=== PATIENT | male | born 1960 | race African-American/Black ===

== ENCOUNTER 2017-04-03 08:10 | Observation (INO) | payer OTHER ==
[~2017-04-03] VITALS: Ht 170.2 cm; Wt 132.0 kg
[2017-04-03] VITALS (7 sets, daily range): BP systolic 136–199; BP diastolic 69–97; PULSE 51–89; RESP 14–23; TEMP 97.9–99; O2SAT 97–99
[~2017-04-03 08:10] MED LIST: ALBU1AER INH; CEPH500C3 PO; CLON.1 PO; DIOV320T PO; GLUCTAB PO; LORTA10 PO; NEUR100C PO; PROC90TA PO; SIMV20TA PO; VENTAER INH; WARF6 PO
[2017-04-03] MEDS ORDERED: SODIUM CHLORIDE 0.9% FLUSH 10 ML FLUSH IVF PRN (08:30)
--- NOTE | 2017-04-03 08:31 | PD ---
HPI Chief Complaint: Chest Pain Time Seen by Provider: 08:17 Travel History International Travel<30 days: No Contact w/Intl Traveler<30days: No Traveled to known affect area: No History of Present Illness HPI 56-year-old male presents with central chest pressure that started at 5 AM this morning with shortness of breath. He states he's also been having swelling in his legs for a couple weeks that he wears compression stockings for. He states that he doesn't follow with a heart specialists. He states he did not take an aspirin as he is on Coumadin for A. fib. He states he had this a couple years ago and was told that it was related to his blood pressure. He states that he had a stress test done and it was okay. He denies any other concurrent complaints. Quality is pressure. Severity is mild. He denies specific modifying factors. Duration is since 5 AM this morning. PFSH Past Medical History Hx Anticoagulant Therapy: Yes Arthritis: Yes (BILATERAL LOWER EXTREMETIES AND BACK) Asthma: No Atrial Fibrillation: Yes Autoimmune Disease: No Blood Disorders: No Anxiety: No Depression: No Heart Rhythm Problems: Yes (A FIB) Cancer: No Cardiac Catheterization: No Cardiovascular Problems: Yes High Cholesterol: Yes Chemotherapy: No Chest Pain: Yes Congestive Heart Failure: No COPD: Yes Cerebrovascular Accident: No Diabetes: Yes Diminished Hearing: No Endocrine: No Gastrointestinal Disorders: Yes GERD: Yes Glaucoma: No Genitourinary: Yes Headaches: Yes Hepatitis: No Hiatal Hernia: No Hypertension: Yes Immune Disorder: No Kidney Stones: No Musculoskeletal: Yes Neurologic: Yes Psychiatric: No Reproductive: No Respiratory: Yes Immunizations Current: Yes Migraines: Yes Myocardial Infarction: No Radiation Therapy: No Renal Failure: No Seizures: No Sickle Cell Disease: No Sleep Apnea: Yes Thyroid Disease: No Ulcer: No PNEUMOCCOCAL Vaccine (Year): 2 Past Surgical History Abdominal Surgery: No AICD: No Appendectomy: No Arteriovenous Shunt: No Cardiac Surgery: No Cholecystectomy: No Coronary Artery Bypass Graft: No Ear Surgery: No Endocrine Surgery: No Eye Surgery: No Genitourinary Surgery: No Gynecologic Surgery: No Insulin Pump: No Joint Replacement: No Oral Surgery: Yes Pacemaker: No Thoracic Surgery: No Other Surgery: Yes Social History Alcohol Use: Yes (ONCE/TWICE PER WEEK PER PT) Tobacco Use: No Substance Use: No Allergies-Medications (Allergen,Severity, Reaction): Coded Allergies: No Known Allergies (Verified Allergy, Unknown, 04/03/17) Reported Meds & Prescriptions Reported Meds & Active Scripts Active Ventolin Hfa (Albuterol Sulfate) 18 Gm Aero 2 Puff INH Q4H PRN Keflex (Cephalexin Monohydrate) 500 Mg Cap 500 Mg PO Q6HR 7 Days Proair Hfa (Albuterol Sulfate) 8.5 Gm Aero 2 Puff INH Q4HPRN * SHAKE WELL BEFORE USE * Reported Simvastatin 20 Mg Tab 20 Mg PO DAILY Hydrocodone/Acetaminophen 10 mg/325 mg 10 Mg/325 Mg Tab 1 Tab PO Q6HPRN Coumadin (Warfarin Sodium) 6 Mg Tab 8 Mg PO DAILY Catapres 0.1 mg (Clonidine HCl) 0.1 Mg Tab 0.2 Mg PO TID WITH MEALS Glucophage (Metformin HCl) 500 Mg Tab 500 Mg PO DAILY Diovan 320 mg (Valsartan) 320 Mg Tab 320 Mg PO DAILY Procardia Xl (Nifedipine) 90 Mg Tabcr 90 Mg PO DAILY Neurontin (Gabapentin) 100 Mg Cap 600 Mg PO BID Review of Systems Except as stated in HPI: all other systems reviewed are Neg Physical Exam Narrative GENERAL: Well-nourished, well-developed patient. Well-appearing SKIN: Warm and dry. HEAD: Normocephalic and atraumatic. EYES: No injection or drainage. ENT: No nasal drainage noted. NECK: Supple, trachea midline. CARDIOVASCULAR: irregular rate and rhythm RESPIRATORY: Breath sounds equal bilaterally. No accessory muscle use. GASTROINTESTINAL: Abdomen soft, non-tender, nondistended. EXTREMITIES: Mild edema noted to bilateral legs NEUROLOGICAL: Awake and alert. Motor and sensory grossly within normal limits. Normal speech. RECTAL EXAM: Performed with operating room rn and after permission. No large external hemorrhoid or fissure, stool is brown, non-bloody. Data Data Last Documented VS Vital Signs Date Time Temp Pulse Resp B/P (MAP) Pulse Ox O2 Delivery O2 Flow Rate FiO2 04/03/17 09:57 16 04/03/17 09:44 64 159/76 (103) 97 Room Air 04/03/17 08:13 98.7 Orders Orders Electrocardiogram (04/03/17 08:17) B-Type Natriuretic Peptide (04/03/17 08:17) Ckmb (Isoenzyme) Profile (04/03/17 08:17) Complete Blood Count With Diff (04/03/17 08:17) Comprehensive Metabolic Panel (04/03/17 08:17) Magnesium (Mg) (04/03/17 08:17) Prothrombin Time / Inr (Pt) (04/03/17 08:17) Act Partial Throm Time (Ptt) (04/03/17 08:17) Troponin I (04/03/17 08:17) Chest, Single Ap (04/03/17 08:17) Ecg Monitoring (04/03/17 08:17) Bilateral Bp Monitoring (04/03/17 08:17) Iv Access Insert/Monitor (04/03/17 08:17) Oximetry (04/03/17 08:17) Sodium Chloride 0.9% Flush (Ns Flush) (04/03/17 08:30) Nitroglycerin Sl (Nitrostat Sl) (04/03/17 08:30) CKMB (04/03/17 08:25) CKMB% (04/03/17 08:25) Drug Screen, Random Urine (04/03/17 09:26) Aspirin (Aspirin) (04/03/17 10:00) Pantoprazole Inj (Protonix Inj) (04/03/17 10:00) Albuterol-Ipratropium Neb (Duoneb Neb) (04/03/17 10:00) Admit Order (Ed Use Only) (04/03/17 10:38) Place In Observation (04/03/17 ) Vital Signs (Adult) Q4H (04/03/17 10:37) Activity Oob With Assistance (04/03/17 10:37) Neuro Intensivist Physician / Telemetry .CONTINUOUS (04/03/17 10:37) Diet Heart Healthy (04/03/17 Lunch) Sodium Chloride 0.9% Flush (Ns Flush) (04/03/17 10:45) Sodium Chloride 0.9% Flush (Ns Flush) (04/03/17 21:00) Acetaminophen (Tylenol) (04/03/17 10:45) Ondansetron Inj (Zofran Inj) (04/03/17 10:45) Temazepam (Restoril) (04/03/17 10:45) Basic Metabolic Panel (Bmp) (04/04/17 06:00) Complete Blood Count With Diff (04/04/17 06:00) Troponin I (04/03/17 12:30) Troponin I (04/03/17 18:30) Electrocardiogram (04/03/17 12:30) Electrocardiogram (04/03/17 18:30) Naloxone Inj (Narcan Inj) (04/03/17 10:45) Magnesium Hydroxide Liq (Milk Of Magnesi (04/03/17 10:45) Sennosides (Senokot) (04/03/17 10:45) Bisacodyl Supp (Dulcolax Supp) (04/03/17 10:45) Lactulose Liq (Lactulose Liq) (04/03/17 10:45) Labs Laboratory Tests Test 04/03/17 08:25 04/03/17 09:39 White Blood Count 8.3 TH/MM3 Red Blood Count 4.31 MIL/MM3 Hemoglobin 9.0 GM/DL Hematocrit 30.9 % Mean Corpuscular Volume 71.6 FL Mean Corpuscular Hemoglobin 20.8 PG Mean Corpuscular Hemoglobin Concent 29.0 % Red Cell Distribution Width 21.6 % Platelet Count 373 TH/MM3 Mean Platelet Volume 7.4 FL CBC Comment AUTO DIFF Differential Total Cells Counted 100 Neutrophils % (Manual) 86 % Band Neutrophils % 1 % Lymphocytes % 10 % Monocytes % 1 % Basophils % 1 % Neutrophils # (Manual) 7.2 TH/MM3 Differential Comment FINAL DIFF MANUAL Plasma Cells 1 % Platelet Estimate NORMAL Platelet Morphology Comment NORMAL Ovalocytes 1+ Prothrombin Time 11.9 SEC Prothromb Time International Ratio 1.2 RATIO Activated Partial Thromboplast Time 28.7 SEC Blood Urea Nitrogen 20 MG/DL Creatinine 1.04 MG/DL Random Glucose 65 MG/DL Total Protein 8.0 GM/DL Albumin 3.9 GM/DL Calcium Level 8.2 MG/DL Magnesium Level 2.3 MG/DL Alkaline Phosphatase 71 U/L Aspartate Amino Transf (AST/SGOT) 26 U/L Alanine Aminotransferase (ALT/SGPT) 18 U/L Total Bilirubin 0.6 MG/DL Sodium Level 137 MEQ/L Potassium Level 4.2 MEQ/L Chloride Level 107 MEQ/L Carbon Dioxide Level 21.2 MEQ/L Anion Gap 9 MEQ/L Estimat Glomerular Filtration Rate 90 ML/MIN Total Creatine Kinase 366 U/L Creatine Kinase MB 3.1 NG/ML Creatine Kinase MB % 0.8 % Troponin I LESS THAN 0.02 NG/ML B-Type Natriuretic Peptide 129 PG/ML Urine Opiates Screen NEG Urine Barbiturates Screen NEG Urine Amphetamines Screen NEG Urine Benzodiazepines Screen NEG Urine Cocaine Screen POS Urine Cannabinoids Screen NEG MDM Medical Decision Making Medical Screen Exam Complete: Yes Emergency Medical Condition: Yes Medical Record Reviewed: Yes (past history confirmed) Interpretation(s) CBC & BMP Diagram 04/03/17 08:25 Total Protein 8.0, Albumin 3.9, Calcium Level 8.2 L, Magnesium Level 2.3, Alkaline Phosphatase 71, Aspartate Amino Transf (AST/SGOT) 26, Alanine Aminotransferase (ALT/SGPT) 18, Total Bilirubin 0.6 Last 24 hours Impressions Chest X-Ray 04/03/17 0817 Signed Impressions: Service Date/Time: Monday, April 03, 2017 08:24 - CONCLUSION: 1. Stable appearance with no acute cardiopulmonary disease. 2. Mild cardiomegaly with no evidence of pulmonary edema. 3. Known hiatal hernia again visualized. Hussein Olivares MD Differential Diagnosis MD, CHF, pneumothorax, asthma, gastritis Narrative Course Will check blood work, chest x-ray and dose with nitroglycerin and reevaluate Patient has anemia of 9. Patient does not know if he's had history of this. His last blood work was 3 months ago. That site guaiac is brown and only faintly positive. Patient states he has not been on his Coumadin for the past [address] on aspirin given chest pain and INR that is subtherapeutic given he is only with a small amount of positive on guaiac and admit to the hospital for further care HemaPrompt Point of Care Fecal Specimen Occult Blood: Positive Physician Communication Physician Communication dr busby agrees to admit Diagnosis Primary Impression: Chest pain Qualified Codes: R07.9 - Chest pain, unspecified Additional Impressions: Anemia Qualified Codes: D64.9 - Anemia, unspecified Cocaine abuse Admitting Information Admitting Physician Requests: Becca Hernández MD Apr 03, 2017 08:31
[2017-04-03 08:44] LABS: HEMATOCRIT 30.9 % (39.0-51.0); MEAN CELL VOLUME 71.6 FL (80.0-100.0); MEAN CORPUSCULAR HEMOGLOBIN 20.8 PG (27.0-34.0); MEAN PLATELET VOLUME 7.4 FL (7.0-11.0); PLATELET COUNT 373 TH/MM3 (150-450); RED BLOOD COUNT 4.31 MIL/MM3 (4.50-5.90); RED CELL DISTRIBUTION WIDTH 21.6 % (11.6-17.2); WHITE BLOOD COUNT 8.3 TH/MM3 (4.0-11.0)
[2017-04-03 08:45] LABS: INTERNATIONAL NORMALIZED RATIO 1.2 RATIO; PROTHROMBIN TIME - PATIENT 11.9 SEC (9.8-11.6)
[2017-04-03 08:54] LABS: ALBUMIN 3.9 GM/DL (3.4-5.0); ALT (GPT) 18 U/L (12-78); AST (GOT) 26 U/L (15-37); BICARBONATE 21.2 MEQ/L (21.0-32.0); CALCIUM 8.2 MG/DL (8.5-10.1); CHLORIDE 107 MEQ/L (98-107); CREATININE 1.04 MG/DL (0.60-1.30); GLOMERULAR FILTRATION RATE 90 ML/MIN (>89); GLUCOSE,RANDOM 65 MG/DL (74-106); MAGNESIUM 2.3 MG/DL (1.5-2.5); SODIUM (NA) 137 MEQ/L (136-145)
[2017-04-03 09:01] LABS: ALKALINE PHOSPHATASE 71 U/L (45-117); BLOOD UREA NITROGEN 20 MG/DL (7-18); TOTAL BILIRUBIN ADULT 0.6 MG/DL (0.2-1.0); TROPONIN I LESS THAN 0.02 NG/ML (0.02-0.05)
[2017-04-03 09:17] LABS: BANDS 1 % (0-6); BASOPHILS 1 % (0-2); LYMPHOCYTES 10 % (9-44); MONOCYTES 1 % (0-8); NEUTROPHIL # MANUAL DIFF 7.2 TH/MM3 (1.8-7.7); OVALOCYTES 1+ (NORMAL); PLASMA CELLS 1 % (0-0); POLYS (SEG NEUTROPHILS) 86 % (16-70)
[2017-04-03] MEDS: NITROGLYCERIN 0.4 MG SL 25 TABS/BTL SL SCH ×3 (09:18→09:47)
--- NOTE | 2017-04-03 09:23 | RADRPT ---
EXAM DATE/TIME: 04/03/2017 08:24 [facility] COMPARISON: CHEST SINGLE AP, February 27, 2013, 9:46. INDICATIONS : Chest pains and tightness radiating down left arm. MEDICAL HISTORY : Known hiatal hernia seen on CT. Diabetes mellitus type II. A-fib SURGICAL HISTORY : None. ENCOUNTER: Initial ACUITY: 1 day PAIN SCORE: 8/10 LOCATION: Left chest FINDINGS: A single view of the chest demonstrates the lungs to be symmetrically aerated without evidence of mas s, infiltrate or effusion. The cardiomediastinal heart size remains mildly prominent with no perihil ar edema. The known retrocardiac hiatal hernia is again visualized. Osseous structures are intact. CONCLUSION: 1. Stable appearance with no acute cardiopulmonary disease. 2. Mild cardiomegaly with no evidence of pulmonary edema. 3. Known hiatal hernia again visualized. Hussein Olivares MD on April 03, 2017 at 9:19 Board Certified Radiologist. This report was verified electronically.
[2017-04-03] MEDS ORDERED: PANTOPRAZOLE SODIUM 40 MG VIAL IV PUSH ONE (10:00)
[2017-04-03] MEDS ORDERED: ASPIRIN 325 MG TAB PO ONE (10:00)
[2017-04-03] MEDS ORDERED: RESP: ALBUTEROL 2.5 MG/IPRATROPIUM 0.5 MG NEB (SCH) NEB ONE (10:00)
--- NOTE | 2017-04-03 10:41 | HHI.HP ---
[facility] Service [facility] Primary Care Physician Viktoriya Mcgill MD Admission Diagnosis chest pain Diagnoses: Chief Complaint: Chest pain. Travel History International Travel<30 Days: No Contact w/Intl Traveler <30 Da: No Traveled to Known Affected Are: No History of Present Illness Mr. Sexton is a pleasant 56-year-old Jess male with a history of atrial fibrillation who presents to the emergency department due to chest pain, shortness of breath. He woke up this morning around 5 AM with shortness of breath and sharp pain on his left chest with radiation to his left arm. He also felt chest tightness. Chest tightness lasted until he came to the emergency room around 8 AM. He also reports nausea vomiting and diaphoresis. He reports some chills and mild headache. No abdominal pain. No changes in bowel or bladder habits. He denies any dark stool. ED work up indicated UDS positive for cocaine, Hgb 9.0 with MCV 71. Review of Systems Except as stated in HPI: all other systems reviewed are Neg Past Family Social History Past Medical History Bronchial asthma, atrial fibrillation, hypertension Past Surgical History No past surgical history Reported Medications Ventolin Hfa (Albuterol Sulfate) 18 Gm Aero 2 Puff INH Q4H PRN Keflex (Cephalexin Monohydrate) 500 Mg Cap 500 Mg PO Q6HR 7 Days Proair Hfa (Albuterol Sulfate) 8.5 Gm Aero 2 Puff INH Q4HPRN * SHAKE WELL BEFORE USE * Reported Simvastatin 20 Mg Tab 20 Mg PO DAILY Hydrocodone/Acetaminophen 10 mg/325 mg 10 Mg/325 Mg Tab 1 Tab PO Q6HPRN Coumadin (Warfarin Sodium) 6 Mg Tab 8 Mg PO DAILY Catapres 0.1 mg (Clonidine HCl) 0.1 Mg Tab 0.2 Mg PO TID WITH MEALS Glucophage (Metformin HCl) 500 Mg Tab 500 Mg PO DAILY Diovan 320 mg (Valsartan) 320 Mg Tab 320 Mg PO DAILY Procardia Xl (Nifedipine) 90 Mg Tabcr 90 Mg PO DAILY Neurontin (Gabapentin) 100 Mg Cap 600 Mg PO BID Allergies: Coded Allergies: No Known Allergies (Verified Allergy, Unknown, 04/03/17) Family History No family history of heart disease, Parkinson's or Alzheimer's Social History Patient denies using tobacco, alcohol, illicit drugs. However he used cocaine 2 days ago while with friends. He denies using cocaine on a regular basis. Physical Exam Vital Signs Vital Signs Date Time Temp Pulse Resp B/P (MAP) Pulse Ox O2 Delivery O2 Flow Rate FiO2 04/03/17 09:57 16 04/03/17 09:44 64 14 159/76 (103) 97 Room Air 04/03/17 08:26 98 Room Air 04/03/17 08:13 98.7 89 20 199/97 (131) 99 Physical Exam GENERAL: This is a well-nourished, well-developed patient, in no apparent distress. SKIN: No rashes, ecchymoses or lesions. Warm and dry. HEAD: Atraumatic. Normocephalic. No temporal or scalp tenderness. EYES: Pupils equal round and reactive. No injection or drainage. ENT: Nose without bleeding, purulent drainage or septal hematoma. Airway patent. NECK: Trachea midline. No lymphadenopathy. Supple, nontender, no meningeal signs. CARDIOVASCULAR: Regular rate and rhythm without murmurs, gallops, or rubs. No JVD. RESPIRATORY: Clear to auscultation. Breath sounds equal bilaterally. No wheezes , rales, or rhonchi. GASTROINTESTINAL: Abdomen soft, non-tender, nondistended. No guarding. MUSCULOSKELETAL: Extremities without clubbing, cyanosis, or edema. NEUROLOGICAL: Awake and alert. Cranial nerves II through XII intact. No focal neurological deficits. Normal speech. Laboratory Laboratory Tests Test 04/03/17 08:25 04/03/17 09:39 White Blood Count 8.3 Red Blood Count 4.31 Hemoglobin 9.0 Hematocrit 30.9 Mean Corpuscular Volume 71.6 Mean Corpuscular Hemoglobin 20.8 Mean Corpuscular Hemoglobin Concent 29.0 Red Cell Distribution Width 21.6 Platelet Count 373 Mean Platelet Volume 7.4 CBC Comment AUTO DIFF Differential Total Cells Counted 100 Neutrophils % (Manual) 86 Band Neutrophils % 1 Lymphocytes % 10 Monocytes % 1 Basophils % 1 Neutrophils # (Manual) 7.2 Differential Comment FINAL DIFF MANUAL Plasma Cells 1 Platelet Estimate NORMAL Platelet Morphology Comment NORMAL Ovalocytes 1+ Prothrombin Time 11.9 Prothromb Time International Ratio 1.2 Activated Partial Thromboplast Time 28.7 Blood Urea Nitrogen 20 Creatinine 1.04 Random Glucose 65 Total Protein 8.0 Albumin 3.9 Calcium Level 8.2 Magnesium Level 2.3 Alkaline Phosphatase 71 Aspartate Amino Transf (AST/SGOT) 26 Alanine Aminotransferase (ALT/SGPT) 18 Total Bilirubin 0.6 Sodium Level 137 Potassium Level 4.2 Chloride Level 107 Carbon Dioxide Level 21.2 Anion Gap 9 Estimat Glomerular Filtration Rate 90 Total Creatine Kinase 366 Creatine Kinase MB 3.1 Creatine Kinase MB % 0.8 Troponin I LESS THAN 0.02 B-Type Natriuretic Peptide 129 Urine Opiates Screen NEG Urine Barbiturates Screen NEG Urine Amphetamines Screen NEG Urine Benzodiazepines Screen NEG Urine Cocaine Screen POS Urine Cannabinoids Screen NEG Result Diagram: 04/03/1782404/03/17824 Imaging Last Impressions Chest X-Ray 04/03/17816 Signed Impressions: Service Date/Time: Monday, April 03, 2017 08:24 - CONCLUSION: 1. Stable appearance with no acute cardiopulmonary disease. 2. Mild cardiomegaly with no evidence of pulmonary edema. 3. Known hiatal hernia again visualized. Hussein Olivares MD [place] VTE Risk Assessment Caprini VTE Risk Assessment: Mod/High Risk (score >= 2) Caprini Risk Assessment Model Point Value = 1 Point Value = 2 Point Value = 3 Point Value = 5 Age 41-60 Minor surgery BMI > 25 kg/m2 Swollen legs Varicose veins or History of unexplained or recurrent spontaneous Oral contraceptives or hormone replacement Sepsis (< 1 month) Serious lung disease, including pneumonia (< 1 month) Abnormal pulmonary function Acute myocardial infarction Congestive heart failure (< 1 month) History of inflammatory bowel disease Medical patient at bed rest Age 61-74 Arthroscopic surgery Major open surgery (> 45 min) Laparoscopic surgery (> 45 min) Malignancy Confined to bed (> 72 hours) Immobilizing plaster cast Central venous access Age >= 75 History of VTE Family history of VTE Factor V Leiden Prothrombin [id number] Lupus anticoagulant Anticardiolipin antibodies Elevated serum homocysteine Heparin-induced thrombocytopenia Other congenital or acquired thrombophilia Stroke (< 1 month) Elective arthroplasty Hip, pelvis, or leg fracture Acute spinal cord injury (< 1 month) Prophylaxis Regimen Total Risk Factor Score Risk Level Prophylaxis Regimen 0-1 Low Early ambulation 2 Moderate Order ONE of the following: *Sequential Compression Device (SCD) *Heparin 5000 units SQ BID 3-4 Higher Order ONE of the following medications: *Heparin 5000 units SQ TID *Enoxaparin/Lovenox 40 mg SQ daily (WT < 150 kg, CrCl > 30 mL/min) *Enoxaparin/Lovenox 30 mg SQ daily (WT < 150 kg, CrCl > 10-29 mL/min) *Enoxaparin/Lovenox 30 mg SQ BID (WT < 150 kg, CrCl > 30 mL/min) AND/OR *Sequential Compression Device (SCD) 5 or more Highest Order ONE of the following medications: *Heparin 5000 units SQ TID (Preferred with Epidurals) *Enoxaparin/Lovenox 40 mg SQ daily (WT < 150 kg, CrCl > 30 mL/min) *Enoxaparin/Lovenox 30 mg SQ daily (WT < 150 kg, CrCl > 10-29 mL/min) *Enoxaparin/Lovenox 30 mg SQ BID (WT < 150 kg, CrCl > 30 mL/min) AND *Sequential Compression Device (SCD) Assessment and Plan Problem List: (1) Chest pain ICD Code: R07.9 - Chest pain, unspecified Status: Acute (2) Cocaine abuse ICD Code: F14.10 - Cocaine abuse, uncomplicated Status: Acute (3) Atrial fibrillation ICD Code: I48.91 - Unspecified atrial fibrillation (4) Hypertension ICD Code: I10 - Essential (primary) hypertension Assessment and Plan Mr. Sexton is a pleasant 56-year-old Jess male with a history of hypertension, atrial fibrillation who presents to the emergency department due to chest pain that started around 5 AM on 04/03/2017. ED workup indicated mildly anemia with MCV 71 and hemoglobin 9.0. Patient reported using cocaine 2 days ago and his UDS was positive for cocaine. - Probable cocaine-induced chest pain - Initial troponin negative. We'll check troponins and EKG 2 more times. - Patient is a strongly advised to abstain from cocaine as it can cause vasoconstriction. - Patient received aspirin 325 mg in the ED. - No beta massiel due to cocaine abuse - Atrial fibrillation - [id number] score is probably 1 (Hypertension). - Last HbA1C was 6.2, 6.3 10 years ago and he has lost a lot of weight since then. We will check HbA1C. - If DM is diagnosed, his [id number] score would be 2 in which case he will need anti-coagulation - If he does not have DM, he may need just Aspirin 81mg Qday. Will consider Protonix daily as well. - Hypertension - Will continue Nifedipine SR. - Anemia - likely chronic and possibly GI blood loss related. - Will check Iron panel, Ferritin. - Will consult GI for possible Colonoscopy, EGD. Full code. SCDs. Problem Qualifiers (1) Chest pain: Qualified Codes: R07.9 - Chest pain, unspecified Rukhsana Martin DO Apr 03, 2017 10:41
[2017-04-03] MEDS ORDERED: ONDANSETRON HCL 4 MG/2 ML VIAL IVP PRN (10:45)
[2017-04-03] MEDS ORDERED: SENNOSIDES 8.6 MG TAB PO PRN (10:45)
[2017-04-03] MEDS ORDERED: LACTULOSE SYRUP 20 GM/30 ML CUP PO PRN (10:45)
[2017-04-03] MEDS ORDERED: BISACODYL 10 MG SUPP RECTAL PRN (10:45)
[2017-04-03] MEDS ORDERED: MAGNESIUM HYDROXIDE SUSP 30 ML CUP PO PRN (10:45)
[2017-04-03] MEDS ORDERED: NALOXONE HCL 0.4 MG/ML AMP IV PUSH PRN (10:45)
[2017-04-03] MEDS ORDERED: SODIUM CHLORIDE 0.9% FLUSH 10 ML FLUSH IV FLUSH PRN (10:45)
[2017-04-03] MEDS ORDERED: ACETAMINOPHEN 325 MG TAB PO PRN (10:45)
[2017-04-03] MEDS ORDERED: TEMAZEPAM 15 MG CAP PO PRN (10:45)
[2017-04-03] MEDS ORDERED: NIFEdipine 60 MG SUSTAINED RELEASE TAB PO ONE (12:45)
[2017-04-03] MEDS ORDERED: PANTOPRAZOLE SOD 40 MG DELAYED RELEASE TAB PO ONE (13:00)
[2017-04-03 14:01] LABS: % SATURATION IRON PROFILE 6.3 % (20-50); IRON (FE) 32 MCG/DL (65-175); TOTAL IRON BINDING CAPACITY 505 MCG/DL (250-450)
[2017-04-03 14:04] LABS: FERRITIN 8 NG/ML (26-388)
--- NOTE | 2017-04-03 15:14 | EKG ---
Date Performed: 04/03/2017 Time Performed: 08:33:51 PTAGE: 56 years EKG: ATRIAL FIBRILLATION WITH SLOW VENTRICULAR RESPONSE ABNORMAL RHYTHM ECG PREVIOUS TRACING : 02/27/2013 12.57 Compared to prior tracing no significant change DOCTOR: Long Nieto Interpretating Date/Time 04/03/2017 15:12:56
--- NOTE | 2017-04-03 15:55 | PD.CONS ---
HPI History of Present Illness This is a 56 year old M who presented to the emergency department today with complaints of shortness of breath and chest pain that began this morning. He states it woke him up from his sleep. Reports some current resolution in symptoms at this time. ER documentation revealed positive cocaine in urine, pt admitted to use two days ago, and attending notes chest pain likely secondary to this. Two sets of Troponin so far negative. GI was consulted due to pts anemia. H/H currently 9.0/30.9. Pt denies history of anemia, does report seeing a PCP outpatient and having routine labs done. Pt reports history of gastric ulcer approx 2 years ago, says it was found during an admission at [facility]. Unable to find these records in patient chart. Reports having colonoscopy done at the same time which showed poor prep and he was told to have follow up colonoscopy outpatient, however, he never had this done. Pt has atrial fibrillation and has been on long-term anti-coagulation therapy with Warfarin, he states for ten years. Denies any recent adjustment in medication. Only GI complaint at this time is nausea and vomiting that began this morning , denies BRB in vomit or coffee ground emesis. BM today, denies BRBPR and black , tarry stools. Denies acid reflux, unintentional weight loss, abdominal pain. Denies NSAID use. Does admit to ETOH use, however, he is very vague about how much or how often he drinks. At first said it was mostly on holidays but later admitted to drinking almost every other weekend at family gatherings. Denies smoking. Admits to cocaine use, as noted above, but states does not use cocaine on a regular basis. Family history is significant for colon cancer, grandmother. (Marie Hanks) ON LICENSE OF [facility] Past Medical History Bronchial asthma Atrial fibrillation Hypertension Gastric ulcer Past Surgical History Denies (Marie Hanks) Coded Allergies: No Known Allergies (Verified Allergy, Unknown, 04/03/17) Family History Grandmother- colon cancer Social History ETOH- vague about how much or how often Denies smoking Admits to cocaine use 2 days ago (Marie Hanks) Review of Systems Gastrointestinal: COMPLAINS OF: Nausea, Vomiting, DENIES: Abdominal pain, Black stools, Bloody stools, Constipation, Diarrhea, Difficulty Swallowing, Odynophagia, Swelling of Abdomen, Heartburn, Hematemesis (Marie Hanks) GI Exam Vitals I&O Vital Signs Date Time Temp Pulse Resp B/P (MAP) Pulse Ox O2 Delivery O2 Flow Rate FiO2 04/03/17 12:15 68 23 98 Room Air 04/03/17 09:57 16 04/03/17 09:44 64 14 159/76 (103) 97 Room Air 04/03/17 08:26 98 Room Air 04/03/17 08:13 98.7 89 20 199/97 (131) 99 Imaging Last Impressions Chest X-Ray 04/03/17 0817 Signed Impressions: Service Date/Time: Monday, April 03, 2017 08:24 - CONCLUSION: 1. Stable appearance with no acute cardiopulmonary disease. 2. Mild cardiomegaly with no evidence of pulmonary edema. 3. Known hiatal hernia again visualized. Hussein Olivares MD Laboratory Test 04/03/17 08:25 04/03/17 09:39 04/03/17 12:51 04/03/17 12:52 White Blood Count 8.3 TH/MM3 Red Blood Count 4.31 MIL/MM3 Hemoglobin 9.0 GM/DL Hematocrit 30.9 % Mean Corpuscular Volume 71.6 FL Mean Corpuscular Hemoglobin 20.8 PG Mean Corpuscular Hemoglobin Concent 29.0 % Red Cell Distribution Width 21.6 % Platelet Count 373 TH/MM3 Mean Platelet Volume 7.4 FL CBC Comment AUTO DIFF Differential Total Cells Counted 100 Neutrophils % (Manual) 86 % Band Neutrophils % 1 % Lymphocytes % 10 % Monocytes % 1 % Basophils % 1 % Neutrophils # (Manual) 7.2 TH/MM3 Differential Comment FINAL DIFF MANUAL Plasma Cells 1 % Platelet Estimate NORMAL Platelet Morphology Comment NORMAL Ovalocytes 1+ Prothrombin Time 11.9 SEC Prothromb Time International Ratio 1.2 RATIO Activated Partial Thromboplast Time 28.7 SEC Blood Urea Nitrogen 20 MG/DL Creatinine 1.04 MG/DL Random Glucose 65 MG/DL Total Protein 8.0 GM/DL Albumin 3.9 GM/DL Calcium Level 8.2 MG/DL Magnesium Level 2.3 MG/DL Alkaline Phosphatase 71 U/L Aspartate Amino Transf (AST/SGOT) 26 U/L Alanine Aminotransferase (ALT/SGPT) 18 U/L Total Bilirubin 0.6 MG/DL Sodium Level 137 MEQ/L Potassium Level 4.2 MEQ/L Chloride Level 107 MEQ/L Carbon Dioxide Level 21.2 MEQ/L Anion Gap 9 MEQ/L Estimat Glomerular Filtration Rate 90 ML/MIN Total Creatine Kinase 366 U/L Creatine Kinase MB 3.1 NG/ML Creatine Kinase MB % 0.8 % Troponin I LESS THAN 0.02 NG/ML LESS THAN 0.02 NG/ML B-Type Natriuretic Peptide 129 PG/ML Urine Opiates Screen NEG Urine Barbiturates Screen NEG Urine Amphetamines Screen NEG Urine Benzodiazepines Screen NEG Urine Cocaine Screen POS Urine Cannabinoids Screen NEG Iron Level 32 MCG/DL Total Iron Binding Capacity 505 MCG/DL Percent Iron Saturation 6.3 % Ferritin 8 NG/ML Physical Examination HEENT: Normocephalic; atraumatic CHEST: Even/unlabored. CARDIAC: RRR ABDOMEN: Round, soft, nontender; bowel sounds active EXTREMITIES: No clubbing, cyanosis, or edema. SKIN: Normal; no rash; no jaundice. 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 (Marie Hanks) Assessment and Plan Plan Assessment - Anemia- microcystic, hypochromic- H/H currently 9.0/30.9. Iron-32 TIBS-505 % Sat 6.3 Ferritin-8 Pt denies history of anemia. Reports EGD approx 2 years ago which revealed gastric ulcer. Pt thought this was done at [facility] but I am unable to find this in the record. On Warfarin at home for a-fib, no recent adjustment in dosage. Denies NSAIDS. Admits to ETOH but vague about how much or how often. No obvious GI bleeding. Only GI symptoms are nausea and vomiting that began this morning, denies BRB or coffee ground emesis. BM today, denies BRBPR and black, tarry stools. Continue Protonix. Hold anticoagulation. EGD tomorrow. - Chest pain/SOB- A-fib, rate controlled. Reports resolution of symptoms at this time. Per attending likely secondary to cocaine use two days ago. Plan: - EGD tomorrow - Obtain consents - NPO after MN - Continue Protonix - Monitor H/H - Transfuse as needed - Hold anticoagulation for procedure - Supportive care - Further recommendations to follow based on results of above Pt has been seen and examined by myself and Dr. Bratu and this note is written on her behalf (Marie Hanks) Physician Comments seen, examined agree with above we will check office and Tim records to see if any egd/colon report available history of NSAIDS use (Nelsy Norman MD) Marie Hanks Apr 03, 2017 15:55 Nelsy Norman MD Apr 03, 2017 20:56
[2017-04-03] MEDS: ACETAMINOPHEN/HYDROcodone 325 MG/10 MG TAB PO PRN (18:02)
[2017-04-03] MEDS: RESP: ALBUTEROL 2.5 MG/IPRATROPIUM 0.5 MG NEB (PRN) NEB (18:09)
[2017-04-03 21:44] LABS: TROPONIN I 0.02 NG/ML (0.02-0.05)
[2017-04-03 22:31] LABS: HEMOGLOBIN A1C 5.6 % (4.3-6.0)
[2017-04-04] VITALS (10 sets, daily range): BP systolic 129–176; BP diastolic 74–94; PULSE 51–78; RESP 17–18; TEMP 97.5–99.2; O2SAT 94–98
[2017-04-04] MEDS: ACETAMINOPHEN/HYDROcodone 325 MG/10 MG TAB PO PRN ×5 (00:19→22:57)
[2017-04-04] MEDS: SODIUM CHLORIDE 0.9% FLUSH 10 ML FLUSH IV FLUSH SCH ×3 (00:21→20:01)
[2017-04-04] MEDS: RESP: ALBUTEROL 2.5 MG/IPRATROPIUM 0.5 MG NEB (PRN) NEB ×4 (00:36→14:06)
[2017-04-04 07:06] LABS: AUTOMATED NEUTROPHIL # 3.7 TH/MM3 (1.8-7.7); BASOPHIL # 0.1 TH/MM3 (0-0.2); BASOPHIL % 1.2 % (0.0-2.0); EOSINOPHIL # 0.1 TH/MM3 (0-0.4); EOSINOPHIL % 1.8 % (0.0-4.0); HEMATOCRIT 28.3 % (39.0-51.0); HEMOGLOBIN 8.3 GM/DL (13.0-17.0); LYMPH % 13.3 % (9.0-44.0); LYMPHOCYTE # 0.7 TH/MM3 (1.0-4.8); MEAN CELL VOLUME 70.9 FL (80.0-100.0); MEAN CORPUSCULAR HEMOGLOBIN 20.8 PG (27.0-34.0); MEAN PLATELET VOLUME 7.9 FL (7.0-11.0); MONO % 11.3 % (0.0-8.0); MONOCYTE # 0.6 TH/MM3 (0-0.9); NEUT % 72.4 % (16.0-70.0); PLATELET COUNT 328 TH/MM3 (150-450); RED BLOOD COUNT 3.99 MIL/MM3 (4.50-5.90); RED CELL DISTRIBUTION WIDTH 21.5 % (11.6-17.2); WHITE BLOOD COUNT 5.1 TH/MM3 (4.0-11.0)
[2017-04-04 07:09] LABS: MEAN CORPUSCULAR HGB CONC 29.3 % (32.0-36.0)
[2017-04-04 07:27] LABS: BICARBONATE 23.4 MEQ/L (21.0-32.0); CALCIUM 8.1 MG/DL (8.5-10.1)
--- NOTE | 2017-04-04 08:49 | GIPROC ---
[facility] [address] [facility]. [facility], [address] EGD PROCEDURE REPORT EXAM DATE: 04/04/2017 PATIENT NAME: Keith Sxeton MR #: [id number] BIRTHDATE: 1960 ATTENDING: Nelsy Norman MD ORDER #: [id number] SAUSAGE MIXER: Zeny Hassan and Natasha Barros STATUS: inpatient INDICATIONS: The patient is a 56 yr old male here for an EGD due to anemia PROCEDURE PERFORMED: EGD w/ biopsy MEDICATIONS: None and Per Anesthesia. TOPICAL ANESTHETIC: CONSENT: The patient understands the risks and benefits of the procedure and understands that these risks include, but are not limited to: sedation, allergic reaction, infection, perforation and/or bleeding. Alternative means of evaluation and treatment include, among others: physical exam, x-rays, and/or surgical intervention. The patient elects to proceed with this endoscopic procedure. medical equipment was checked for proper function. Hand hygiene and appropriate measures for infection prevention was taken. After the risks, benefits and alternatives of the procedure were thoroughly explained, Informed consent was verified, confirmed and timeout was successfully executed by the treatment team. The patient was anesthetized with topical anesthesia and the Pentax [id number] endoscope was introduced through the mouth and advanced to the second portion of the duodenum. Retroflexed views revealed a hiatal hernia The gastroscope was then slowly withdrawn and removed. Gastritis antrum-biopsy duodenum normal -biopsy midesophagus prominent vein. ADVERSE EVENTS: There were no complications. IMPRESSIONS: 1. Gastritis antrum-biopsy duodenum normal -biopsy midesophagus prominent vein 2. Retroflexed views revealed a hiatal hernia RECOMMENDATIONS: 1. Await biopsy results. Biopsy results will not be ready for 7-10 days. If you don't hear from us in two weeks, call our office for biopsy results. 2. Anti-reflux regimen 3. Continue PPI 4. Avoid NSAIDS PATIENT CONDITION: stable DISPOSITION: Inpatient REPEAT EXAM: Return 3 years EGD colonoscopy in am Nelsy Norman MD eSigned: Nelsy Norman MD 04/04/2017 8:48 AM cc: PATIENT NAME: Keith Sexton MR#: [id number]
[2017-04-04] MEDS: PANTOPRAZOLE SOD 40 MG DELAYED RELEASE TAB PO SCH (09:31)
[2017-04-04] MEDS: NIFEdipine 60 MG SUSTAINED RELEASE TAB PO SCH (09:31)
[2017-04-04] MEDS ORDERED: PEG (High)/E-LYTE SOLN 4000 ML BTL PO ONE (10:00)
[2017-04-04] MEDS ORDERED: PROPOFOL 200 MG/20 ML AMP IV ONE (12:00)
[2017-04-04] MEDS ORDERED: PHENYLEPH/NS 1000 MCG/10 ML SYR IV ONE (12:00)
[2017-04-04] MEDS ORDERED: LIDOCAINE HCL 1% PF 5 ML SYRINGE OTHER ONE (12:00)
--- NOTE | 2017-04-04 12:05 | HHI.PR ---
Subjective Remarks in no acute distress. no GI bleed. no dizziness or sob. denies chest pain. Objective Vitals Vital Signs Date Time Temp Pulse Resp B/P (MAP) Pulse Ox O2 Delivery O2 Flow Rate FiO2 04/04/17 11:09 98.1 78 18 157/94 (115) 94 04/04/17 09:02 100 18 132/73 (92) 100 04/04/17 08:50 98.6 69 20 139/80 (99) 99 04/04/17 07:22 66 04/04/17 07:07 98.9 72 18 168/74 (105) 98 04/04/17 04:05 51 04/04/17 03:18 98.5 60 18 129/81 (97) 97 04/04/17 00:13 97.5 54 18 176/87 (116) 97 04/04/17 00:08 52 04/03/17 20:07 54 04/03/17 20:04 99.0 61 20 136/69 (91) 98 04/03/17 19:02 18 04/03/17 18:37 51 04/03/17 16:02 97.9 56 18 144/85 (104) 99 04/03/17 12:15 68 23 98 Room Air I/O 04/03/17 04/03/17 04/03/17 04/04/17 04/04/17 04/04/17 07:00 15:00 23:00 07:00 15:00 23:00 Intake Total 300 ml 200 ml Output Total 300 ml 1050 ml 1100 ml Balance 0 ml -1050 ml -900 ml Intake Oral 300 ml Other 200 ml Output Urine Total 300 ml 1050 ml 1100 ml # Voids 1 # Bowel Movements 1 Result Diagram: 04/04/17 0549 04/04/17 0549 Imaging Last Impressions Chest X-Ray 04/03/17 0817 Signed Impressions: Service Date/Time: Monday, April 03, 2017 08:24 - CONCLUSION: 1. Stable appearance with no acute cardiopulmonary disease. 2. Mild cardiomegaly with no evidence of pulmonary edema. 3. Known hiatal hernia again visualized. Hussein Olivares MD Objective Remarks GENERAL: This is a well-nourished, well-developed patient, in no apparent distress. CARDIOVASCULAR: Regular rate and regular rhythm without murmurs, gallops, or rubs. RESPIRATORY: Clear to auscultation. Breath sounds equal bilaterally. No wheezes , rales, or rhonchi. GASTROINTESTINAL: Abdomen soft, non-tender, nondistended. Normal, active bowel sounds MUSCULOSKELETAL: Extremities without clubbing, cyanosis, or edema. NEURO: Alert & Oriented x4 to person, place, time, situation. Moves all ext x4 Procedures EGD. Medications and IVs Inpatient Medications Acetaminophen (Tylenol) 650 mg Q4H PRN PO Headache, fever, pain 1-4 Last administered on 04/04/17at 03:59; Start 04/03/17 at 10:45 Acetaminophen/ Hydrocodone Bitart ([place] 10-325 Mg) 1 tab Q6H PRN PO PAIN SCALE 5 TO 10 Last administered on 04/04/17at 11:43; Start 04/03/17 at 18:00 Albuterol/ Ipratropium (Duoneb Neb) 1 ampule Q4HR NEB PRN NEB Dyspnea Last administered on 04/04/17at 09:40; Start 04/03/17 at 18:00 Aspirin (Aspirin) 325 mg ONCE ONCE PO Last administered on 04/03/17at 10:32; Start 04/03/17 at 10:00; Stop 04/03/17 at 10:01; Status DC Bisacodyl (Dulcolax Supp) 10 mg DAILY PRN RECTAL SEVERE CONSITIPATION; Start at 10:45 Lactulose (Lactulose Liq) 30 ml DAILY PRN PO SEVERE CONSITIPATION; Start at 10:45 Magnesium Hydroxide (Milk Of Magnesia Liq) 30 ml Q12H PRN PO Mild constipation ; Start 04/03/17 at 10:45 Naloxone HCl (Narcan Inj) 0.4 mg UNSCH PRN IV PUSH SEE LABEL COMMENTS; Start at 10:45 Nifedipine (Procardia Xl) 60 mg DAILY PO Last administered on 04/04/17at 09:31; Start 04/04/17 at 09:00 Nitroglycerin (Nitrostat Sl) 0.4 mg Q5M SL Last administered on 04/03/17at 09:47 ; Start 04/03/17 at 08:30; Stop 04/03/17 at 08:41; Status DC Ondansetron HCl (Zofran Inj) 4 mg Q6H PRN IVP NAUSEA OR VOMITING; Start at 10:45 Pantoprazole Sodium (Protonix Inj) 40 mg ONCE ONCE IV PUSH Last administered on 04/03/17at 10:32; Start 04/03/17 at 10:00; Stop 04/03/17 at 10:01; Status DC Pantoprazole Sodium (Protonix) 40 mg DAILY PO Last administered on 04/04/17at 09 :31; Start 04/04/17 at 09:00 Polyethylene Glycol/ Electrolytes (Colyte Liq) 4,000 ml ONCE ONCE PO Last administered on 04/04/17at 09:50; Start 04/04/17 at 10:00; Stop 04/04/17 at 10:01 ; Status DC Sennosides (Senokot) 17.2 mg Q12H PRN PO Moderate constipation; Start 04/03/17 at 10:45 Sodium Chloride (NS Flush) 2 ml BID IV FLUSH Last administered on 04/04/17at 09: 31; Start 04/03/17 at 21:00 Temazepam (Restoril) 15 mg HS PRN PO INSOMNIA; Start 04/03/17 at 10:45 A/P Problem List: (1) Chest pain ICD Code: R07.9 - Chest pain, unspecified Status: Acute (2) Cocaine abuse ICD Code: F14.10 - Cocaine abuse, uncomplicated Status: Acute (3) Atrial fibrillation ICD Code: I48.91 - Unspecified atrial fibrillation (4) Hypertension ICD Code: I10 - Essential (primary) hypertension Assessment and Plan A/P - Probable cocaine-induced chest pain - troponin negative. - Patient is a strongly advised to abstain from cocaine as it can cause vasoconstriction. - Patient received aspirin 325 mg in the ED. - No beta massiel due to cocaine abuse - Atrial fibrillation - resume coumadin when ok with GI - Hypertension - Will continue Nifedipine SR. - Anemia -iron deficiency- likely chronic and possibly GI blood loss related. - GI consult appreciated; s/p EGD with gastritis- colonoscopy pending. -start iron supplement. Problem Qualifiers (1) Chest pain: Qualified Codes: R07.9 - Chest pain, unspecified Damián Hanley MD Apr 04, 2017 12:05
[2017-04-04 15:17] LABS: HEMATOCRIT 30.2 % (39.0-51.0); HEMOGLOBIN 8.9 GM/DL (13.0-17.0)
[2017-04-04] MEDS: RESP: ALBUTEROL 2.5 MG/IPRATROPIUM 0.5 MG NEB (SCH) NEB ×2 (16:15→21:08)
[2017-04-04] MEDS: FERROUS SULFATE 325 MG (65 MG ELEMENTAL IRON) TAB PO SCH (16:49)
--- NOTE | 2017-04-04 21:55 | EKG ---
Date Performed: 04/03/2017 Time Performed: 17:47:25 PTAGE: 56 years EKG: ATRIAL FIBRILLATION WITH SLOW VENTRICULAR RESPONSE ABNORMAL RHYTHM ECG PREVIOUS TRACING : 04/03/2017 08.33 Compared to prior tracing no significant change DOCTOR: Chuck Gilbert Interpretating Date/Time 04/04/2017 21:54:41
[2017-04-05] VITALS (12 sets, daily range): BP systolic 140–163; BP diastolic 81–92; PULSE 57–93; RESP 18–20; TEMP 98.1–99.1; O2SAT 95–97
[2017-04-05] MEDS: RESP: ALBUTEROL 2.5 MG/IPRATROPIUM 0.5 MG NEB (SCH) NEB ×7 (04:05→19:33)
[2017-04-05] MEDS: ACETAMINOPHEN/HYDROcodone 325 MG/10 MG TAB PO PRN ×3 (05:20→17:57)
[2017-04-05] MEDS ORDERED: LISI-519 PO (08:30)
[2017-04-05] MEDS: PANTOPRAZOLE SOD 40 MG DELAYED RELEASE TAB PO SCH (08:32)
[2017-04-05] MEDS: SODIUM CHLORIDE 0.9% FLUSH 10 ML FLUSH IV FLUSH SCH ×2 (08:32→21:00)
[2017-04-05] MEDS: NIFEdipine 60 MG SUSTAINED RELEASE TAB PO SCH (08:32)
--- NOTE | 2017-04-05 10:08 | HHI.PR ---
Subjective Remarks in no acute distress. no chest pain, sob. no abdominal pain. awaiting colonoscopy. Objective Vitals Vital Signs Date Time Temp Pulse Resp B/P (MAP) Pulse Ox O2 Delivery O2 Flow Rate FiO2 04/05/17 07:38 99.1 69 20 140/84 (102) 97 04/05/17 06:27 18 04/05/17 04:41 98.9 70 18 148/82 (104) 96 04/05/17 03:56 57 04/05/17 00:30 98.9 75 18 141/81 (101) 95 04/05/17 00:08 93 04/04/17 21:02 99.0 74 17 143/79 (100) 98 04/04/17 16:01 99.2 73 18 163/93 (116) 94 04/04/17 12:30 74 04/04/17 11:09 98.1 78 18 157/94 (115) 94 I/O 04/04/17 04/04/17 04/04/17 04/05/17 04/05/17 04/05/17 07:00 15:00 23:00 07:00 15:00 23:00 Intake Total 200 ml Output Total 1050 ml 1100 ml 500 ml Balance -1050 ml -900 ml -500 ml Other 200 ml Output Urine Total 1050 ml 1100 ml 500 ml # Voids 1 # Bowel Movements 1 Result Diagram: 04/04/17 1455 04/04/17 0549 Imaging Last Impressions Chest X-Ray 04/03/17 0817 Signed Impressions: Service Date/Time: Monday, April 03, 2017 08:24 - CONCLUSION: 1. Stable appearance with no acute cardiopulmonary disease. 2. Mild cardiomegaly with no evidence of pulmonary edema. 3. Known hiatal hernia again visualized. Hussein Olivares MD Objective Remarks GENERAL: This is a well-nourished, well-developed patient, in no apparent distress. CARDIOVASCULAR: Regular rate and regular rhythm without murmurs, gallops, or rubs. RESPIRATORY: Clear to auscultation. Breath sounds equal bilaterally. No wheezes , rales, or rhonchi. GASTROINTESTINAL: Abdomen soft, non-tender, nondistended. Normal, active bowel sounds MUSCULOSKELETAL: Extremities without clubbing, cyanosis, or edema. NEURO: Alert & Oriented x4 to person, place, time, situation. Moves all ext x4 Procedures EGD. Medications and IVs Inpatient Medications Acetaminophen (Tylenol) 650 mg Q4H PRN PO Headache, fever, pain 1-4 Last administered on 04/04/17at 03:59; Start 04/03/17 at 10:45 Acetaminophen/ Hydrocodone Bitart ([place] 10-325 Mg) 1 tab Q6H PRN PO PAIN SCALE 5 TO 10 Last administered on 04/05/17at 05:20; Start 04/03/17 at 18:00 Albuterol/ Ipratropium (Duoneb Neb) 1 ampule Q4HR NEB NEB Last administered on 04/05/17at 07:42; Start 04/04/17 at 16:00 Aspirin (Aspirin) 325 mg ONCE ONCE PO Last administered on 04/03/17at 10:32; Start 04/03/17 at 10:00; Stop 04/03/17 at 10:01; Status DC Bisacodyl (Dulcolax Supp) 10 mg DAILY PRN RECTAL SEVERE CONSITIPATION; Start at 10:45 Ferrous Sulfate (Ferrous Sulfate) 325 mg BID@12,17 PO Last administered on 04/04at 16:49; Start 04/04/17 at 17:00 Lactulose (Lactulose Liq) 30 ml DAILY PRN PO SEVERE CONSITIPATION; Start at 10:45 Magnesium Hydroxide (Milk Of Magnesia Liq) 30 ml Q12H PRN PO Mild constipation ; Start 04/03/17 at 10:45 Naloxone HCl (Narcan Inj) 0.4 mg UNSCH PRN IV PUSH SEE LABEL COMMENTS; Start at 10:45 Nifedipine (Procardia Xl) 60 mg DAILY PO Last administered on 04/05/17at 08:32; Start 04/04/17 at 09:00 Nitroglycerin (Nitrostat Sl) 0.4 mg Q5M SL Last administered on 04/03/17at 09:47 ; Start 04/03/17 at 08:30; Stop 04/03/17 at 08:41; Status DC Ondansetron HCl (Zofran Inj) 4 mg Q6H PRN IVP NAUSEA OR VOMITING; Start at 10:45 Pantoprazole Sodium (Protonix Inj) 40 mg ONCE ONCE IV PUSH Last administered on 04/03/17at 10:32; Start 04/03/17 at 10:00; Stop 04/03/17 at 10:01; Status DC Pantoprazole Sodium (Protonix) 40 mg DAILY PO Last administered on 04/05/17at 08 :32; Start 04/04/17 at 09:00 Polyethylene Glycol/ Electrolytes (Colyte Liq) 4,000 ml ONCE ONCE PO Last administered on 04/04/17at 09:50; Start 04/04/17 at 10:00; Stop 04/04/17 at 10:01 ; Status DC Sennosides (Senokot) 17.2 mg Q12H PRN PO Moderate constipation; Start 04/03/17 at 10:45 Sodium Chloride (NS Flush) 2 ml BID IV FLUSH Last administered on 04/05/17at 08: 32; Start 04/03/17 at 21:00 Temazepam (Restoril) 15 mg HS PRN PO INSOMNIA; Start 04/03/17 at 10:45 A/P Problem List: (1) Chest pain ICD Code: R07.9 - Chest pain, unspecified Status: Acute (2) Cocaine abuse ICD Code: F14.10 - Cocaine abuse, uncomplicated Status: Acute (3) Atrial fibrillation ICD Code: I48.91 - Unspecified atrial fibrillation (4) Hypertension ICD Code: I10 - Essential (primary) hypertension Assessment and Plan A/P - Probable cocaine-induced chest pain - troponin negative. - Patient is a strongly advised to abstain from cocaine as it can cause vasoconstriction. - Patient received aspirin 325 mg in the ED. - No beta massiel due to cocaine abuse - Atrial fibrillation - resume coumadin if ok with GI. - Hypertension - Will continue Nifedipine SR. - Anemia -iron deficiency- likely chronic and possibly GI blood loss related. - GI consult appreciated; s/p EGD with gastritis- colonoscopy pending. -started iron supplement. Discharge Planning possible dc home later today - pending colonoscopy. d/w the patient. Problem Qualifiers (1) Chest pain: Qualified Codes: R07.9 - Chest pain, unspecified Damián Hanley MD Apr 05, 2017 10:08
[2017-04-05] MEDS ORDERED: PANT40TA3 PO (10:38)
[2017-04-05] MEDS ORDERED: FERR325T20 PO (10:38)
[2017-04-05] MEDS: FERROUS SULFATE 325 MG (65 MG ELEMENTAL IRON) TAB PO SCH ×2 (10:58→16:22)
[2017-04-05] MEDS: LACTATED RINGER'S 1000 ML IV PRN (14:07)
[2017-04-05] MEDS ORDERED: POVIDONE IODINE 5% (ANTISEPSIS KIT) 4 APPLICATIONS EACH NARE PRN (14:15)
[2017-04-05] MEDS ORDERED: CHLORHEXIDINE GLUCONATE 2 % 1 PACK (2 CLOTHS) TOPICAL PRN (14:15)
[2017-04-05] MEDS ORDERED: SODIUM CHLORID 0.9% 500 ML IV PRN (14:15)
[2017-04-05] MEDS ORDERED: METOPROLOL TARTRATE 25 MG TAB PO PRN (14:15)
[2017-04-05] MEDS ORDERED: BISACODYL EC 5 MG TABEC PO ONE (15:45)
--- NOTE | 2017-04-05 16:10 | ECHRPT ---
Indication: CLEARENCE FOR COLONOSCOPY CONCLUSIONS Normal left ventricular size. Wall thickness is measured at the upper limits of normal. The left ventricular systolic function is low normal with an estimated ejection fraction in the rang e of 50- 55%. Mild mitral valve regurgitation. There is mild tricuspid valve regurgitation. There is estimated moderate pulmonary hypertension present (60 mmHg). BP: / HR: Rhythm: MEASUREMENTS (Male / Female) Normal Values Technical Quality:Good 2D ECHO LV Diastolic Diameter PLAX 4.5 cm 4.2 - 5.9 / 3.9 - 5.3 cm LV Systolic Diameter PLAX 3.4 cm IVS Diastolic Thickness 1.2 cm 0.6 - 1.0 / 0.6 - 0.9 cm LVPW Diastolic Thickness 1.1 cm 0.6 - 1.0 / 0.6 - 0.9 cm LV Relative Wall Thickness 0.5 RV Internal Dim ED PLAX 2.2 cm M-MODE Aortic Root Diameter MM 3.3 cm AV Cusp Separation MM 2.1 cm DOPPLER Mitral E Point Velocity 128.0 cm/s Mitral A Point Velocity 35.8 cm/s Mitral E to A Ratio 3.6 TR Peak Velocity 354.0 cm/s TR Peak Gradient 50.1 mmHg Right Atrial Pressure 10.0 mmHg Pulmonary Artery Systolic Pressu 60.1 mmHg Right Ventricular Systolic Press 60.1 mmHg FINDINGS LEFT VENTRICLE Normal left ventricular size. Wall thickness is measured at the upper limits of normal. The left ventricular systolic function is low normal with an estimated ejection fraction in the rang e of 50- 55%. RIGHT VENTRICLE Normal right ventricular size and systolic function. LEFT ATRIUM The left atrial size is normal. RIGHT ATRIUM The right atrial size is normal. ATRIAL SEPTUM Normal atrial septal thickness without atrial level shunting by limited color doppler interrogation. AORTA The aortic root and proximal ascending aorta are normal in size on limited imaging. MITRAL VALVE Mild mitral valve regurgitation. AORTIC VALVE Trileaflet aortic valve. No aortic valve stenosis or regurgitation. TRICUSPID VALVE There is mild tricuspid valve regurgitation. There is estimated moderate pulmonary hypertension present (60 mmHg). PULMONARY VALVE No pulmonary valve regurgitation or stenosis. VESSELS The inferior vena cava is normal in size. PERICARDIUM No pericardial effusion. Huey Rudolph MD (Electronically Signed) Final Date:05 April 2017 16:09
[2017-04-06 00:02] VITALS: PULSE 72
[2017-04-06] MEDS: RESP: ALBUTEROL 2.5 MG/IPRATROPIUM 0.5 MG NEB (SCH) NEB ×5 (00:33→16:00)
[2017-04-06] MEDS: ACETAMINOPHEN/HYDROcodone 325 MG/10 MG TAB PO PRN ×2 (00:43→07:56)
[2017-04-06 04:02] VITALS: PULSE 66
[2017-04-06 04:15] VITALS: BP 130/81; PULSE 77; RESP 16; TEMP 98.2; O2SAT 97
[2017-04-06 07:43] VITALS: BP 139/80; PULSE 82; RESP 16; TEMP 98.4; O2SAT 97
[2017-04-06] MEDS: NIFEdipine 60 MG SUSTAINED RELEASE TAB PO SCH (07:56)
[2017-04-06] MEDS: PANTOPRAZOLE SOD 40 MG DELAYED RELEASE TAB PO SCH (07:56)
[2017-04-06] MEDS: SODIUM CHLORIDE 0.9% FLUSH 10 ML FLUSH IV FLUSH SCH (07:57)
--- NOTE | 2017-04-06 08:07 | HHI.PR ---
Subjective Remarks in no acute distress. resting comfortably with no distress. denies chest pain. no sob. no GI bleed. awaiting colonoscopy. Objective Vitals Vital Signs Date Time Temp Pulse Resp B/P (MAP) Pulse Ox O2 Delivery O2 Flow Rate FiO2 04/06/17 07:43 98.4 82 16 139/80 (99) 97 04/06/17 04:15 98.2 77 16 130/81 (97) 97 04/06/17 04:02 66 04/06/17 00:02 72 04/05/17 23:56 98.1 77 18 154/89 (110) 95 04/05/17 20:47 98.7 89 18 143/84 (103) 95 04/05/17 20:00 90 04/05/17 16:24 140/90 (107) 04/05/17 15:59 98.7 83 20 163/92 (115) 96 04/05/17 15:00 71 I/O 04/05/17 04/05/17 04/05/17 04/06/17 04/06/17 04/06/17 07:00 15:00 23:00 07:00 15:00 23:00 Output Total 500 ml Balance -500 ml Output Urine Total 500 ml Result Diagram: 04/04/17 1455 04/04/17 0549 Imaging Last Impressions Chest X-Ray 04/03/17 0817 Signed Impressions: Service Date/Time: Monday, April 03, 2017 08:24 - CONCLUSION: 1. Stable appearance with no acute cardiopulmonary disease. 2. Mild cardiomegaly with no evidence of pulmonary edema. 3. Known hiatal hernia again visualized. Hussein Oilvares MD Objective Remarks GENERAL: This is a well-nourished, well-developed patient, in no apparent distress. CARDIOVASCULAR: Regular rate and regular rhythm without murmurs, gallops, or rubs. RESPIRATORY: Clear to auscultation. Breath sounds equal bilaterally. No wheezes , rales, or rhonchi. GASTROINTESTINAL: Abdomen soft, non-tender, nondistended. Normal, active bowel sounds MUSCULOSKELETAL: Extremities without clubbing, cyanosis, or edema. NEURO: Alert & Oriented x4 to person, place, time, situation. Moves all ext x4 Procedures EGD. Medications and IVs Inpatient Medications Acetaminophen (Tylenol) 650 mg Q4H PRN PO Headache, fever, pain 1-4 Last administered on 04/04/17at 03:59; Start 04/03/17 at 10:45 Acetaminophen/ Hydrocodone Bitart (Estero 10-325 Mg) 1 tab Q6H PRN PO PAIN SCALE 5 TO 10 Last administered on 04/06/17at 07:56; Start 04/03/17 at 18:00 Albuterol/ Ipratropium (Duoneb Neb) 1 ampule Q4HR NEB NEB Last administered on 04/06/17at 07:15; Start 04/04/17 at 16:00 Aspirin (Aspirin) 325 mg ONCE ONCE PO Last administered on 04/03/17at 10:32; Start 04/03/17 at 10:00; Stop 04/03/17 at 10:01; Status DC Bisacodyl (Dulcolax Ec) 10 mg ONCE ONCE PO Last administered on 04/05/17at 16: 22; Start 04/05/17 at 15:45; Stop 04/05/17 at 15:52; Status DC Bisacodyl (Dulcolax Supp) 10 mg DAILY PRN RECTAL SEVERE CONSITIPATION; Start at 10:45 Chlorhexidine Gluconate (Chlorhexidine 2% Cloth) 3 pack LADLE REPAIRMAN PRN TOPICAL SEE LABEL COMMENTS; Start 04/05/17 at 14:15; Stop 04/08/17 at 14:14 Ferrous Sulfate (Ferrous Sulfate) 325 mg BID@12,17 PO Last administered on 04/05at 16:22; Start 04/04/17 at 17:00 Lactated Ringer's 1,000 ml @ 30 mls/hr Q24H PRN IV SEE LABEL COMMENTS Last administered on 04/05/17at 14:07; Start 04/05/17 at 14:15; Stop 04/08/17 at 14:14 Lactulose (Lactulose Liq) 30 ml DAILY PRN PO SEVERE CONSITIPATION; Start at 10:45 Magnesium Hydroxide (Milk Of Magnesia Liq) 30 ml Q12H PRN PO Mild constipation ; Start 04/03/17 at 10:45 Metoprolol Tartrate (Lopressor) 25 mg LADLE REPAIRMAN PRN PO SEE LABEL COMMENTS; Start 04/05/17 at 14:15; Stop 04/08/17 at 14:14 Naloxone HCl (Narcan Inj) 0.4 mg UNSCH PRN IV PUSH SEE LABEL COMMENTS; Start at 10:45 Nifedipine (Procardia Xl) 60 mg DAILY PO Last administered on 04/06/17at 07:56; Start 04/04/17 at 09:00 Nitroglycerin (Nitrostat Sl) 0.4 mg Q5M SL Last administered on 04/03/17at 09:47 ; Start 04/03/17 at 08:30; Stop 04/03/17 at 08:41; Status DC Ondansetron HCl (Zofran Inj) 4 mg Q6H PRN IVP NAUSEA OR VOMITING; Start at 10:45 Pantoprazole Sodium (Protonix Inj) 40 mg ONCE ONCE IV PUSH Last administered on 04/03/17at 10:32; Start 04/03/17 at 10:00; Stop 04/03/17 at 10:01; Status DC Pantoprazole Sodium (Protonix) 40 mg DAILY PO Last administered on 04/06/17at 07 :56; Start 04/04/17 at 09:00 Polyethylene Glycol/ Electrolytes (Colyte Liq) 4,000 ml ONCE ONCE PO Last administered on 04/04/17at 09:50; Start 04/04/17 at 10:00; Stop 04/04/17 at 10:01 ; Status DC Povidone Iodine (Betadine 5% Antisepsis Kit) 1 applic LADLE REPAIRMAN PRN EACH NARE SEE LABEL COMMENTS; Start 04/05/17 at 14:15; Stop 04/08/17 at 14:14 Sennosides (Senokot) 17.2 mg Q12H PRN PO Moderate constipation; Start 04/03/17 at 10:45 Sodium Chloride 500 ml @ 30 mls/hr [id number] PRN IV SEE LABEL COMMENTS; Start 02/10 at 14:15; Stop 04/08/17 at 14:14 Sodium Chloride (NS Flush) 2 ml BID IV FLUSH Last administered on 04/06/17at 07: 57; Start 04/03/17 at 21:00 Temazepam (Restoril) 15 mg HS PRN PO INSOMNIA; Start 04/03/17 at 10:45 A/P Problem List: (1) Chest pain ICD Code: R07.9 - Chest pain, unspecified Status: Acute (2) Cocaine abuse ICD Code: F14.10 - Cocaine abuse, uncomplicated Status: Acute (3) Atrial fibrillation ICD Code: I48.91 - Unspecified atrial fibrillation (4) Hypertension ICD Code: I10 - Essential (primary) hypertension Assessment and Plan A/P - Probable cocaine-induced chest pain - troponin negative. - Patient is a strongly advised to abstain from cocaine as it can cause vasoconstriction. - No beta massiel due to cocaine abuse -echo with EF 50-55% - Atrial fibrillation - resume coumadin when ok with GI - Hypertension - Will continue Nifedipine SR. - Anemia -iron deficiency- likely chronic and possibly GI blood loss related. - GI consult appreciated; s/p EGD with gastritis- colonoscopy pending. -started iron supplement. Discharge Planning dc home after colonoscopy and GI clearance. Problem Qualifiers (1) Chest pain: Qualified Codes: R07.9 - Chest pain, unspecified Damián Hanley MD Apr 06, 2017 08:07
[2017-04-06 08:59] LABS: HEMATOCRIT 29.3 % (39.0-51.0); HEMOGLOBIN 8.5 GM/DL (13.0-17.0)
[2017-04-06 11:04] VITALS: BP 167/90; PULSE 92; RESP 16; TEMP 98.2; O2SAT 97
[2017-04-06] MEDS ORDERED: PROPOFOL 200 MG/20 ML AMP IV ONE (12:00)
[2017-04-06] MEDS: FERROUS SULFATE 325 MG (65 MG ELEMENTAL IRON) TAB PO SCH (12:00)
[2017-04-06] MEDS: LACTATED RINGER'S 1000 ML IV PRN ×2 (13:00→14:01)
--- NOTE | 2017-04-06 15:07 | GIPROC ---
[facility] [address] [facility]. [place], [address] COLONOSCOPY PROCEDURE REPORT EXAM DATE: 04/06/2017 PATIENT NAME: Keith Sexton MR #: [id number] BIRTHDATE: 1960 ENDOSCOPIST: Nelsy Norman MD ORDER #: [id number] TURN SUPERVISOR: Pao Montague and Zeny Hassan STATUS: inpatient INDICATIONS: The patient is a 56 yr old male here for a colonoscopy due to anemia PROCEDURE PERFORMED: Colonoscopy with biopsy MEDICATIONS: Per Anesthesia and None. PREP QUALITY: suboptimal PREP TYPE:Other: ESTIMATED BLOOD LOSS: None CONSENT: The patient understands the risks and benefits of the procedure and understands that these risks include, but are not limited to: sedation, allergic reaction, infection, perforation and/or bleeding. Alternative means of evaluation and treatment include, among others: physical exam, x-rays, and/or surgical intervention. The patient elects to proceed with this endoscopic procedure. medical equipment was checked for proper function. Hand hygiene and appropriate measures for infection prevention was taken. After the risks, benefits and alternatives of the procedure were thoroughly explained, Informed consent was verified, confirmed and timeout was successfully executed by the treatment team. A digital exam revealed external hemorrhoids The Pentax [id number] endoscope was introduced through the anus and advanced to the cecum, which was identified by both the appendix and ileocecal valve. The instrument was then slowly withdrawn as the colon was fully examined. COLON FINDINGS: Ulcer IC valve - 1 cm-biopsy. Retroflexed views revealed internal hemorrhoids and Retroflexed views revealed medium internal hemorrhoids The scope was then completely withdrawn from the patient and the procedure terminated. PROCEDURE WITHDRAWAL TIME:9minutes ADVERSE EVENTS: There were no complications. IMPRESSIONS: 1. Ulcer IC valve - 1 cm-biopsy 2. Retroflexed views revealed internal hemorrhoids 3. Retroflexed views revealed medium internal hemorrhoids 4. Revealed external hemorrhoids RECOMMENDATIONS: 1. Await biopsy results. Biopsy results will not be ready for 7-10 days. If you don't hear from us in two weeks, call our office for results. 2. Benefiber 2 tsp daily 3. Probiotics from any [facility] or health food store 4. Yearly rectal exams 5. Ok to resume anticoagulation avoid NSAIDS RECALL: Return 6 months Colonoscopy Nelsy Norman MD eSigned: Nelsy Norman MD 04/06/2017 3:06 PM cc: PATIENT NAME: Keith Sexton MR#: [id number]
[2017-04-06 15:15] VITALS: BP 168/77; PULSE 80; RESP 20; TEMP 97.7; O2SAT 98
[2017-04-06] MEDS ORDERED: ENOX120I SQ (15:19)
--- NOTE | 2017-04-06 15:22 | HHI.DCPOC ---
Discharge Care Plan Diagnosis: (1) Gastritis (2) Ileocecal ulcer (3) Internal and external hemorrhoids without complication (4) Anemia (5) Chest pain (6) Atrial fibrillation (7) Hypertension Goals to Promote Your Health * To prevent worsening of your condition and complications * To maintain your health at the optimal level Directions to Meet Your Goals Take your medications as prescribed Follow your dietary instruction Follow activity as directed Keep your appointments as scheduled Take your immunizations and boosters as scheduled If your symptoms worsen call your PCP, if no PCP go to Urgent Care Center or Emergency Room Smoking is Dangerous to Your Health. Avoid second hand smoke Call the 24-hour hour crisis hotline for domestic abuse at Tiffany Cuellar PA-C Apr 06, 2017 15:22
[2017-04-06] MEDS ORDERED: WHEA1POW9 PO (15:26)
== END 2017-04-06 18:44 | disposition home or self-care (01) ==
LOC: NEPC 08:10 → NEDA 10:40 → NEPFCDU 15:26
PROVIDERS: ADMIT Internal Medicine; ATTEND Internal Medicine
DX: K25.9 Gastric ulcer, unspecified as acute or chronic, without hemorrhage or perforation (principal); K29.70 Gastritis, unspecified, without bleeding; K64.8 Other hemorrhoids; K64.4 Residual hemorrhoidal skin tags; K21.9 Gastro-esophageal reflux disease without esophagitis; D50.9 Iron deficiency anemia, unspecified; R07.89 Other chest pain; I48.91 Unspecified atrial fibrillation; J44.9 Chronic obstructive pulmonary disease, unspecified; J81.1 Chronic pulmonary edema; E11.9 Type 2 diabetes mellitus without complications; E78.00 Pure hypercholesterolemia, unspecified; I10 Essential (primary) hypertension; K44.9 Diaphragmatic hernia without obstruction or gangrene; G47.30 Sleep apnea, unspecified; F14.10 Cocaine abuse, uncomplicated; Z79.01 Long term (current) use of anticoagulants; Z79.82 Long term (current) use of aspirin; Z80.0 Family history of malignant neoplasm of digestive organs; Z79.84 Long term (current) use of oral hypoglycemic drugs
CPT/HCPCS: 00731; 00811; 43239; 45380; 71045; 80048; 80053; 80307; 82550; 82552; 82728; 82948; 83036; 83540; 83550; 83735; 83880; 84484; 85007; 85014; 85018; 85025; 85027; 85610; 85730; 88305; 88312; 93005; 93306; 94640; 94664; 96361; 96374; 99285; C9113; G0378; J2370; J7120

== ENCOUNTER 2017-08-27 10:54 | Inpatient (IN) | payer OTHER, MEDICAID, MEDICARE ==
[~2017-08-27] VITALS: Ht 170.2 cm; Wt 145.8 kg
[2017-08-27] VITALS (9 sets, daily range): BP systolic 135–188; BP diastolic 62–81; PULSE 79–98; RESP 16–26; TEMP 97.3–99.7; O2SAT 87–96
[~2017-08-27 10:54] MED LIST changes: -ALBU1AER INH; -CEPH500C3 PO; -CLON.1 PO; -DIOV320T PO; +ENOX120I SQ; +FERR325T20 PO; -GLUCTAB PO; +LISI-519 PO; +PANT40TA3 PO; +WHEA1POW9 PO
--- NOTE | 2017-08-27 12:44 | RADRPT ---
EXAM DATE: 08/27/2017 12:28 PM EDT AGE/SEX: 57 years / Male INDICATIONS: Shortness of breath. CLINICAL DATA: This is the patient's initial encounter. Patient reports that signs and symptoms have been present for 3 days and indicates a pain score of 0/10. MEDICAL/SURGICAL HISTORY: Asthma. Diabetes mellitus type II. None. [place] [facility] [place]. . FINDINGS: PA and lateral views of the chest demonstrate left perihilar airspace disease. Interestingly, nodular -like densities were identified in this location on the 2012 exam. This area was clear on the most re cent plain film of the chest, however. CONCLUSION: Left perihilar airspace disease concerning for early infiltratete. Electronically signed by: Andrea Guerrero MD 08/27/2017 12:43 PM EDT
[2017-08-27] MEDS ORDERED: methylPREDNISolone SOD SUCC 125 MG/2 ML VIAL IV PUSH ONE (14:15)
--- NOTE | 2017-08-27 14:30 | PD ---
HPI Chief Complaint: Respiratory Distress Time Seen by Provider: 14:00 Travel History International Travel<30 days: No Contact w/Intl Traveler<30days: No Traveled to known affect area: No History of Present Illness HPI 57-year-old male with PMH of COPD, A. fib, DM, cocaine abuse, hypertension, MARILYN on warfarin presents the ED for evaluation of 2 week history of dyspnea on exertion, few days history of chest tightness, shortness of breath. He endorses intermittent momentary left-sided chest "twinging." He states that he has had cold symptoms for about a week, endorses cough productive of yellow sputum and occasionally tinged with blood. He endorses oral temp of 100.4 sometime last week. He endorses increased swelling in the legs. He does not take Lasix. He treated at home with duo nebs with no improvement of symptoms, last treatment just before arrival. He does not use oxygen at home. He is unsure who is fixed income manager is. He endorses history of GI bleed, last colonoscopy approximately 6 months ago. He denies recent hematochezia, melena, BRBPR. PFSH Past Medical History Hx Anticoagulant Therapy: Yes Arthritis: Yes (BILATERAL LOWER EXTREMETIES AND BACK) Asthma: No Atrial Fibrillation: Yes Autoimmune Disease: No Blood Disorders: No Anxiety: No Depression: No Heart Rhythm Problems: Yes (A FIB) Cancer: No Cardiac Catheterization: No Cardiovascular Problems: Yes (HTN) High Cholesterol: Yes Chemotherapy: No Chest Pain: Yes Congestive Heart Failure: No COPD: Yes Cerebrovascular Accident: No Diabetes: Yes (PATIENT DENIES) Diminished Hearing: No Endocrine: No Gastrointestinal Disorders: Yes GERD: Yes Glaucoma: No Genitourinary: Yes Headaches: Yes Hepatitis: No Hiatal Hernia: No Hypertension: Yes Immune Disorder: No Kidney Stones: No Musculoskeletal: Yes Neurologic: Yes Psychiatric: No Reproductive: No Respiratory: Yes (COPD) Immunizations Current: Yes Migraines: Yes Myocardial Infarction: No Radiation Therapy: No Renal Failure: No Seizures: No Sickle Cell Disease: No Sleep Apnea: Yes (NON COMPLIANT CPAP USE) Thyroid Disease: No Ulcer: No PNEUMOCCOCAL Vaccine (Year): 2 Past Surgical History Abdominal Surgery: No AICD: No Appendectomy: No Arteriovenous Shunt: No Cardiac Surgery: No Cholecystectomy: No Coronary Artery Bypass Graft: No Ear Surgery: No Endocrine Surgery: No Eye Surgery: No Genitourinary Surgery: No Gynecologic Surgery: No Insulin Pump: No Joint Replacement: No Oral Surgery: Yes Pacemaker: No Thoracic Surgery: No Other Surgery: Yes Social History Alcohol Use: Yes (ONCE/TWICE PER WEEK PER PT) Tobacco Use: No Substance Use: No (HX CRACK ) Allergies-Medications (Allergen,Severity, Reaction): Coded Allergies: No Known Allergies (Verified Allergy, Unknown, 08/27/17) Reported Meds & Prescriptions Reported Meds & Active Scripts Active Reported Neurontin (Gabapentin) 600 Mg Tab 600 Mg PO TID Hydrocodone-Acetamin 10-325 mg (Hydrocodone/Acetaminophen) 10 Mg-325 Mg Tablet 1 Tab PO Q6HR PRN Ventolin Hfa 18 GM Inh (Albuterol Sulfate) 90 Mcg/Act Aer 2 Puff INH Q4-6H PRN Duoneb (Ipratropium-Albuterol Neb) 0.5-2.5 Mg/3 Ml Neb 3 Ml NEB QID Coumadin (Warfarin) 4 Mg Tab 8 Mg PO DAILY Zocor (Simvastatin) 20 Mg Tab 20 Mg PO DAILY Catapres (Clonidine) 0.2 Mg Tab 0.2 Mg PO BID Nifedipine ER 24 HR (Nifedipine) 90 Mg Tab 90 Mg PO DAILY Lisinopril 20 Mg Tab 20 Mg PO DAILY Review of Systems Except as stated in HPI: all other systems reviewed are Neg Physical Exam Narrative GENERAL: Well-nourished, well-developed obese black male with some extra work of breathing. SKIN: Focused skin assessment warm/dry. HEAD: Normocephalic. EYES: No scleral icterus. No injection or drainage. NECK: Supple, trachea midline. No JVD or lymphadenopathy. CARDIOVASCULAR: Regular rate and rhythm without murmurs, gallops, or rubs. CHEST: Nontender throughout without deformity or crepitus. RESPIRATORY: Breath sounds coarse and tight bilaterally. Positive accessory muscle use. GASTROINTESTINAL: Abdomen soft, non-tender, nondistended. MUSCULOSKELETAL: No cyanosis. 2+ edema to the knees bilaterally. BACK: Nontender without obvious deformity. No CVA tenderness. Data Data Last Documented VS Vital Signs Date Time Temp Pulse Resp B/P (MAP) Pulse Ox O2 Delivery O2 Flow Rate FiO2 08/27/17 17:25 85 23 175/81 (112) 96 Nasal Cannula 3.00 08/27/17 14:30 98.3 Orders Orders Electrocardiogram (08/27/17 11:43) Complete Blood Count With Diff (08/27/17 11:43) Ckmb (Isoenzyme) Profile (08/27/17 11:43) Troponin I (08/27/17 11:43) Iv Access Insert/Monitor (08/27/17 11:43) Ecg Monitoring (08/27/17 11:43) Oxygen Administration (08/27/17 11:43) Oximetry (08/27/17 11:43) Comprehensive Metabolic Panel (08/27/17 11:43) B-Type Natriuretic Peptide (08/27/17 11:43) Chest, Pa & Lat (08/27/17 ) Methylprednisolone So Succ Inj (Solumedr (08/27/17 14:15) Albuterol-Ipratropium Neb (Duoneb Neb) (08/27/17 14:15) Blood Culture (08/27/17 14:06) Lactic Acid Sepsis Protocol (08/27/17 14:53) Red Blood Cells (Rbc) (08/27/17 15:34) Blood Product Administration (08/27/17 15:34) Urinalysis - C+S If Indicated (08/27/17 15:34) Type And Screen (08/27/17 15:34) CKMB (08/27/17 14:35) CKMB% (08/27/17 14:35) Levofloxacin 750 Mg Premix Inj (Levaquin (08/27/17 15:41) Coag Profile (08/27/17 15:52) Furosemide Inj (Lasix Inj) (08/27/17 17:15) Admit Order (Ed Use Only) (08/27/17 17:25) Iron/Tibc Profile (08/27/17 14:35) Labs Laboratory Tests Test 08/27/17 14:35 08/27/17 16:00 White Blood Count 5.1 TH/MM3 Red Blood Count 2.99 MIL/MM3 Hemoglobin 6.3 GM/DL Hematocrit 21.7 % Mean Corpuscular Volume 72.6 FL Mean Corpuscular Hemoglobin 20.9 PG Mean Corpuscular Hemoglobin Concent 28.8 % Red Cell Distribution Width 22.7 % Platelet Count 225 TH/MM3 Mean Platelet Volume 7.8 FL Neutrophils (%) (Auto) 87.1 % Lymphocytes (%) (Auto) 3.7 % Monocytes (%) (Auto) 7.9 % Eosinophils (%) (Auto) 0.6 % Basophils (%) (Auto) 0.7 % Neutrophils # (Auto) 4.4 TH/MM3 Lymphocytes # (Auto) 0.2 TH/MM3 Monocytes # (Auto) 0.4 TH/MM3 Eosinophils # (Auto) 0.0 TH/MM3 Basophils # (Auto) 0.0 TH/MM3 CBC Comment AUTO DIFF Differential Comment AUTO DIFF CONFIRMED Platelet Estimate NORMAL Platelet Morphology Comment NORMAL Basophilic Stippling FAINT Spherocytes 1+ Tear Drop Cells 1+ Ovalocytes 1+ Acanthocytes OCC Blood Urea Nitrogen 20 MG/DL Creatinine 1.21 MG/DL Random Glucose 75 MG/DL Total Protein 7.1 GM/DL Albumin 3.1 GM/DL Calcium Level 7.8 MG/DL Alkaline Phosphatase 81 U/L Aspartate Amino Transf (AST/SGOT) 31 U/L Alanine Aminotransferase (ALT/SGPT) 20 U/L Total Bilirubin 1.1 MG/DL Sodium Level 142 MEQ/L Potassium Level 4.0 MEQ/L Chloride Level 112 MEQ/L Carbon Dioxide Level 16.4 MEQ/L Anion Gap 14 MEQ/L Estimat Glomerular Filtration Rate 75 ML/MIN Lactic Acid Level 1.0 mmol/L Iron Level 32 MCG/DL Total Iron Binding Capacity 417 MCG/DL Percent Iron Saturation 7.7 % Total Creatine Kinase 304 U/L Creatine Kinase MB 7.5 NG/ML Troponin I 0.02 NG/ML B-Type Natriuretic Peptide 485 PG/ML Prothrombin Time 12.2 SEC Prothromb Time International Ratio 1.2 RATIO Activated Partial Thromboplast Time 29.7 SEC Urine Color YELLOW Urine Turbidity CLEAR Urine pH 6.5 Urine Specific [place] 1.013 Urine Protein 30 mg/dL Urine Glucose (UA) NEG mg/dL Urine Ketones 10 mg/dL Urine Occult Blood TRACE Urine Nitrite NEG Urine Bilirubin NEG Urine Urobilinogen 2.0 MG/DL Urine Leukocyte Esterase NEG Urine WBC LESS THAN 1 /hpf Urine Hyaline Casts 2 /lpf Microscopic Urinalysis Comment CULT NOT INDICATED MDM Medical Decision Making Medical Screen Exam Complete: Yes Emergency Medical Condition: Yes Differential Diagnosis COPD exacerbation versus CHF versus pneumonia versus ACS versus elevated INR versus GI bleed versus anemia versus other other Narrative Course 57-year-old male with PMH of COPD, A. fib, DM, cocaine abuse, GI bleed, hypertension, MARILYN on warfarin presents the ED for evaluation of 2 week history of dyspnea on exertion, few days history of chest tightness, shortness of breath , intermittent momentary left-sided chest "twinging." Endorses cough productive of yellow sputum and occasionally tinged with blood. Oral temp of 100.4 sometime last week, lower extremity edema. He does not use oxygen at home. Patient's afebrile, pulse 98, respiratory rate 26, BP 188/69, pulse oximetry 87% on room air on presentation. O2 sats improved to 95 on 3 L by nasal cannula. On exam breath sounds are tight and wheezy bilaterally. Patient 's using accessory muscles. There is lower extremity edema to the knees bilaterally. Guaiac positive on rectal exam. Patient was administered IV steroids, duo nebs 3. EKG rate 82, A. fib, no acute ST changes. Reviewed by Dr. Murphy. CXR: Left perihilar airspace disease concerning for early infiltrate. Cardiac enzymes: CK-MB 7.5. Troponin 0 0.02. CBC: WBC 5.1. Hemoglobin 6.3. Hematocrit 21.7. Coags: INR 1.2, subtherapeutic for warfarin use. CMP: BUN 20, creatinine 1.21. Calcium 7.8, corrects when accounting for hyperalbuminemia. UA: No culture indicated. BNP pending Blood cultures were obtained. Patient was administered 750 mg Levaquin IV. 2 units PRBCs ordered pending type and screen. Discussed the results of the workup with the patient. He is agreeable to admission. I spoke with Dr. Wilson who agrees to accept the patient to the medicine service under Dr. Arevalo. Please see medicine notes for disposition. [facility] Point of Care Internal Pos. & Neg. Controls: Passed Fecal Specimen Occult Blood: Positive Rosalinda Ramos Aug 27, 2017 14:30
[2017-08-27] MEDS: RESP: ALBUTEROL 2.5 MG/IPRATROPIUM 0.5 MG NEB (SCH) INH ×4 (14:44→20:34)
[2017-08-27 15:27] LABS: AUTOMATED NEUTROPHIL # 4.4 TH/MM3 (1.8-7.7); BASOPHIL % 0.7 % (0.0-2.0); EOSINOPHIL % 0.6 % (0.0-4.0); HEMATOCRIT 21.7 % (39.0-51.0); LYMPH % 3.7 % (9.0-44.0); LYMPHOCYTE # 0.2 TH/MM3 (1.0-4.8); MEAN CELL VOLUME 72.6 FL (80.0-100.0); MEAN CORPUSCULAR HEMOGLOBIN 20.9 PG (27.0-34.0); MEAN PLATELET VOLUME 7.8 FL (7.0-11.0); MONO % 7.9 % (0.0-8.0); MONOCYTE # 0.4 TH/MM3 (0-0.9); NEUT % 87.1 % (16.0-70.0); PLATELET COUNT 225 TH/MM3 (150-450); RED BLOOD COUNT 2.99 MIL/MM3 (4.50-5.90); RED CELL DISTRIBUTION WIDTH 22.7 % (11.6-17.2); WHITE BLOOD COUNT 5.1 TH/MM3 (4.0-11.0)
[2017-08-27 15:29] LABS: MEAN CORPUSCULAR HGB CONC 28.8 % (32.0-36.0)
[2017-08-27 15:32] LABS: ALBUMIN 3.1 GM/DL (3.4-5.0); ALT (GPT) 20 U/L (12-78); AST (GOT) 31 U/L (15-37); BICARBONATE 16.4 MEQ/L (21.0-32.0); BLOOD UREA NITROGEN 20 MG/DL (7-18); CALCIUM 7.8 MG/DL (8.5-10.1); CHLORIDE 112 MEQ/L (98-107); CREATININE 1.21 MG/DL (0.60-1.30); GLOMERULAR FILTRATION RATE 75 ML/MIN (>89); GLUCOSE,RANDOM 75 MG/DL (74-106); HEMOGLOBIN 6.3 GM/DL (13.0-17.0); SODIUM (NA) 142 MEQ/L (136-145)
[2017-08-27 15:35] LABS: ALKALINE PHOSPHATASE 81 U/L (45-117); TOTAL BILIRUBIN ADULT 1.1 MG/DL (0.2-1.0); TOTAL PROTEIN 7.1 GM/DL (6.4-8.2); TROPONIN I 0.02 NG/ML (0.02-0.05)
[2017-08-27] MEDS ORDERED: NEUR600T PO (15:41)
[2017-08-27] MEDS ORDERED: ZOCO20TA PO (15:41)
[2017-08-27] MEDS ORDERED: CLON.2 PO (15:41)
[2017-08-27] MEDS ORDERED: IPRASOL NEB (15:41)
[2017-08-27] MEDS ORDERED: VENTAER INH (15:41)
[2017-08-27] MEDS ORDERED: LEVOFLOXACIN 750 MG PREMIX INJ 150 ML IV STA (15:41)
[2017-08-27] MEDS ORDERED: LISI-515 PO (15:41)
[2017-08-27] MEDS ORDERED: HYDR-3583 PO (15:41)
[2017-08-27] MEDS ORDERED: NIFE1TAB PO (15:41)
[2017-08-27] MEDS ORDERED: COUM4TAB PO (15:41)
[2017-08-27 16:33] LABS: OVALOCYTES 1+ (NORMAL); SPHEROCYTES 1+ (NORMAL)
[2017-08-27 16:35] LABS: TEARDROP RBCS 1+ (NORMAL)
[2017-08-27 16:38] LABS: ACANTHOCYTES OCC (NORMAL)
[2017-08-27 17:10] LABS: BILIRUBIN, URINE NEG (NEG); BLOOD, URINE TRACE (NEG); GLUCOSE,URINE NEG (NEG); HYALINE CAST, URINE 2 /lpf (RARE); KETONE, URINE 10 mg/dL (NEG); NITRITE,URINE NEG (NEG); PH, URINE 6.5 (5.0-8.5); URINE COLOR YELLOW (YELLW/STRAW); URINE LEUKOCYTE ESTERASE NEG (NEG)
[2017-08-27] MEDS ORDERED: FUROSEMIDE 40 MG/4 ML VIAL IV PUSH ONE (17:15)
[2017-08-27 17:19] LABS: INTERNATIONAL NORMALIZED RATIO 1.2 RATIO; PROTHROMBIN TIME - PATIENT 12.2 SEC (9.8-11.6)
[2017-08-27] MEDS ORDERED: SODIUM CHLORIDE 0.9% FLUSH 10 ML FLUSH IV FLUSH PRN ×2 (17:45→18:45)
--- NOTE | 2017-08-27 17:45 | HHI.HP ---
[facility] Service Family Medicine Primary Care Physician Viktoriya Mcgill MD Admission Diagnosis Pneumonia, GI bleed, anemia, hypoxia Diagnoses: International Travel<30 Days: No Contact w/Intl Traveler<30days: No Known Affected Area: No History of Present Illness Mr. Sexton is a 57 y/o M presenting to the ED with acute shortness of breath. His symptoms started approximately 3 days ago and have worsened each day until presenting to the ED today. He endorses having a productive cough for "a couple of weeks" that was yellow in nature, but has not started to have "red, bloody streaks." His SOB is worsened with any activity. He has been using his nebulizer "every 2 hours for the last day," but this has not resolved any symptoms. He endorses having a "fever up to 103 three days ago," nausea with vomiting, and diaphoresis. He also states that he has had "cold symptoms" for the last 2 weeks leading up to this. He does not use oxygen at home. He also endorses having chest pain over the last 24 hours. He describes the pain as a "pressure tightness" that goes across his whole chest. The pressure does occur with his SOB as well as diaphoresis, tachycardia, and palpitations. He denies any history of cardiac issues, but has had a stress test approximately 1 year ago that was negative per his report. Patient also states he has had one episode of hematemesis yesterday. He states that there was "quite a bit of blood" indicating that it would fill half a emesis basin. He categorizes the blood as bright red with some phlegm as well as food substances. He does report that he has heartburn, and it has been "really bad lately." He does state that he has been taking Ibuprofen twice a day for the past 2 months for headaches. Regarding his headaches, he states that he has been having intermittent headaches for the past year. Typically the pain is approximately 6/10, but at the worst it is a 10/10. He describes the pain as a "high pressure with throbbing." When his headaches are the worst he does have increased blurry vision. He denies any history of TIA/CVA. Per chart review, patient was admitted in March of 2017 for cocaine induced chest pain with a negative cardiac work up. Patient was noted to have anemia. GI was consulted who completed EGD and colonoscopy. Studies showed mild gastritis with an ulceration at the ileocecal valve as well as hemorrhoids ( internal and external). Biopsies of the gastric, duodenal, and ileocecal mucosa were benign. Patient goes on to say that he did require a blood transfusion before due to bleeding gastric ulcers approximately 1 year ago. (Taye Wilson MD R2) Review of Systems Constitutional: COMPLAINS OF: Fever, Chills Eyes: COMPLAINS OF: Blurred vision, DENIES: Double Vision Ears, nose, mouth, throat: COMPLAINS OF: Throat pain, Running Nose Respiratory: COMPLAINS OF: Cough, Hemoptysis, Sputum production, Shortness of breath Cardiovascular: COMPLAINS OF: Chest pain, Palpitations Gastrointestinal: COMPLAINS OF: Nausea, Vomiting, DENIES: Abdominal pain Genitourinary: COMPLAINS OF: Urinary frequency, Nocturia, DENIES: Hematuria, Dysuria Musculoskeletal: COMPLAINS OF: Joint pain, Muscle aches Integumentary: DENIES: Rash Hematologic/lymphatic: COMPLAINS OF: Lymphadenopathy Immunologic/allergic: DENIES: Urticaria Neurologic: COMPLAINS OF: Headache Psychiatric: DENIES: Mood changes, Depression (Taye Wilson MD R2) Past Family Social History Past Medical History Bronchial asthma atrial fibrillation hypertension Past Surgical History No past surgical history reported (Taye Wilson MD R2) Allergies: Coded Allergies: No Known Allergies (Verified Allergy, Unknown, 08/27/17) Family History Mother - HTN, [place], Father - Unknown Sister - [place], 2 Sisters - Unknown Malignancy Social History Lives with Brother in Law and his children. Tobacco - No reported history Alcohol - Drinks over each weekend, drinks up to a fifth of hard alcohol each time, no reported history of withdrawal, last drink was approximately 1 week ago Illicit - Previous marijuana and cocaine use reported, last use 03/2017; no other report of use (Taye Wilson MD R2) Physical Exam Vital Signs Vital Signs Date Time Temp Pulse Resp B/P (MAP) Pulse Ox O2 Delivery O2 Flow Rate FiO2 08/27/17 17:25 85 23 175/81 (112) 96 Nasal Cannula 3.00 08/27/17 15:50 94 Nasal Cannula 3.00 08/27/17 14:30 98.3 08/27/17 14:29 Nasal Cannula 3.00 08/27/17 14:29 22 95 Nasal Cannula 3.00 08/27/17 11:27 97.3 98 26 188/69 (041) 87 Physical Exam GENERAL: Morbidly obese -Swiss male sitting in exam room in mild respiratory distress, however is able to converse in complete sentences throughout interview. SKIN: Warm and dry. No rash. HEENT: Atraumatic, normocephalic with extraocular motions intact. No rhinorrhea.Oropharynx clear without any erythema or exudates. No palpable LAD, thyroid abnormality, or JVD appreciated. CARDIOVASCULAR: Irregular rate and rhythm without obvious murmurs, gallops, or rubs. 2+ pulses in all four extremities. Chest not tender to palpation. RESPIRATORY: Decreased aeration appreciated throughout all lung christie secondary to shallow breathing worsened at the left lower lobe. Intermittent belly breathing with accessory muscle use during interview. Patient able to converse in complete sentences throughout interview. GASTROINTESTINAL: Abdomen soft, non-tender, nondistended with positive bowel sounds. No masses appreciated. MUSCULOSKELETAL: No cyanosis or edema. No calf tenderness. Ambulating well per report. NEURO/PSYCH: Afocal. Awake, alert, and oriented x3. Normal speech and judgement. Laboratory Laboratory Tests Test 08/27/17 14:35 08/27/17 16:00 White Blood Count 5.1 Red Blood Count 2.99 Hemoglobin 6.3 Hematocrit 21.7 Mean Corpuscular Volume 72.6 Mean Corpuscular Hemoglobin 20.9 Mean Corpuscular Hemoglobin Concent 28.8 Red Cell Distribution Width 22.7 Platelet Count 225 Mean Platelet Volume 7.8 Neutrophils (%) (Auto) 87.1 Lymphocytes (%) (Auto) 3.7 Monocytes (%) (Auto) 7.9 Eosinophils (%) (Auto) 0.6 Basophils (%) (Auto) 0.7 Neutrophils # (Auto) 4.4 Lymphocytes # (Auto) 0.2 Monocytes # (Auto) 0.4 Eosinophils # (Auto) 0.0 Basophils # (Auto) 0.0 CBC Comment AUTO DIFF Differential Comment AUTO DIFF CONFIRMED Platelet Estimate NORMAL Platelet Morphology Comment NORMAL Basophilic Stippling FAINT Spherocytes 1+ Tear Drop Cells 1+ Ovalocytes 1+ Acanthocytes OCC Blood Urea Nitrogen 20 Creatinine 1.21 Random Glucose 75 Total Protein 7.1 Albumin 3.1 Calcium Level 7.8 Alkaline Phosphatase 81 Aspartate Amino Transf (AST/SGOT) 31 Alanine Aminotransferase (ALT/SGPT) 20 Total Bilirubin 1.1 Sodium Level 142 Potassium Level 4.0 Chloride Level 112 Carbon Dioxide Level 16.4 Anion Gap 14 Estimat Glomerular Filtration Rate 75 Lactic Acid Level 1.0 Total Creatine Kinase 304 Creatine Kinase MB 7.5 Troponin I 0.02 Prothrombin Time 12.2 Prothromb Time International Ratio 1.2 Activated Partial Thromboplast Time 29.7 Urine Color YELLOW Urine Turbidity CLEAR Urine pH 6.5 Urine Specific [place] 1.013 Urine Protein 30 Urine Glucose (UA) NEG Urine Ketones 10 Urine Occult Blood TRACE Urine Nitrite NEG Urine Bilirubin NEG Urine Urobilinogen 2.0 Urine Leukocyte Esterase NEG Urine WBC LESS THAN 1 Urine Hyaline Casts 2 Microscopic Urinalysis Comment CULT NOT INDICATED Date/Time Source Procedure Growth Status 08/27/17 14:50 Blood Line Aerobic Blood Culture Pending Received 08/27/17 14:50 Blood Line Anaerobic Blood Culture Pending Received (Taye Wilson MD R2) Result Diagram: 08/27/17 1435 08/27/17 1435 Imaging Last 72 hours Impressions Chest X-Ray 08/27/17 0000 Signed Impressions: CONCLUSION: Left perihilar airspace disease concerning for early infiltratete. (Taye Wilson MD R2) Caprini VTE Risk Assessment Caprini VTE Risk Assessment: Mod/High Risk (score >= 2) Caprini Risk Assessment Model Point Value = 1 Point Value = 2 Point Value = 3 Point Value = 5 Age 41-60 Minor surgery BMI > 25 kg/m2 Swollen legs Varicose veins or History of unexplained or recurrent spontaneous Oral contraceptives or hormone replacement Sepsis (< 1 month) Serious lung disease, including pneumonia (< 1 month) Abnormal pulmonary function Acute myocardial infarction Congestive heart failure (< 1 month) History of inflammatory bowel disease Medical patient at bed rest Age 61-74 Arthroscopic surgery Major open surgery (> 45 min) Laparoscopic surgery (> 45 min) Malignancy Confined to bed (> 72 hours) Immobilizing plaster cast Central venous access Age >= 75 History of VTE Family history of VTE Factor V Leiden Prothrombin [id number] Lupus anticoagulant Anticardiolipin antibodies Elevated serum homocysteine Heparin-induced thrombocytopenia Other congenital or acquired thrombophilia Stroke (< 1 month) Elective arthroplasty Hip, pelvis, or leg fracture Acute spinal cord injury (< 1 month) Prophylaxis Regimen Total Risk Factor Score Risk Level Prophylaxis Regimen 0-1 Low Early ambulation 2 Moderate Order ONE of the following: *Sequential Compression Device (SCD) *Heparin 5000 units SQ BID 3-4 Higher Order ONE of the following medications: *Heparin 5000 units SQ TID *Enoxaparin/Lovenox 40 mg SQ daily (WT < 150 kg, CrCl > 30 mL/min) *Enoxaparin/Lovenox 30 mg SQ daily (WT < 150 kg, CrCl > 10-29 mL/min) *Enoxaparin/Lovenox 30 mg SQ BID (WT < 150 kg, CrCl > 30 mL/min) AND/OR *Sequential Compression Device (SCD) 5 or more Highest Order ONE of the following medications: *Heparin 5000 units SQ TID (Preferred with Epidurals) *Enoxaparin/Lovenox 40 mg SQ daily (WT < 150 kg, CrCl > 30 mL/min) *Enoxaparin/Lovenox 30 mg SQ daily (WT < 150 kg, CrCl > 10-29 mL/min) *Enoxaparin/Lovenox 30 mg SQ BID (WT < 150 kg, CrCl > 30 mL/min) AND *Sequential Compression Device (SCD) (Taye Wilson MD R2) Assessment and Plan Assessment and Plan Mr. Sexton is a 57 y/o M presenting to the ED with acute worsening of shortness of breath found to have developing left sided pneumonia with anemia. Code Status FULL CODE Discussed Condition With RichardDARRYN (Taye Wilson MD R2) Attending Attestation THIS CASE WAS DISCUSSED WITH THE RESIDENT PHYSICIANS. I HAVE REVIEWED THE RECORD AND AGREE WITH THE ABOVE NOTE AND PLAN OF CARE WAS DISCUSSED. I HAVE AUTHORIZED THE ORDER FOR ADMISSION TO AN IN-PATIENT STATUS. (Mark Arevalo MD) Problem List: (1) Sepsis ICD Codes: A41.9 - Sepsis, unspecified organism Status: Acute Plan: -Patient presenting with tachycardia 10 98 bpm and tachypnea to 26 breaths per minute and admission -Suspected source of infection as left perihilar infiltrate concerning for pneumonia -Lactic acid order and coordination with sepsis protocol -Please see plan as below (2) Left lower lobe pneumonia ICD Codes: J18.1 - Lobar pneumonia, unspecified organism Status: Acute Plan: -CXR: Left perihilar airspace disease concerning for early infiltrate. -CBC: WBC 5.1 with 87.1% neutrophils -Blood cultures pending -Legionella and pneumococcal urinary antigens pending -Influenza pending -Respiratory CPT, Acapella, and incentive spirometry ordered Medications: -Patient given Levaquin once in ED -Patient to start ceftriaxone and azithromycin as [facility] biogram indicates single fluoroquinolone is not appropriate for coverage -Tylenol as needed for fever -DuoNeb every 6 hours scheduled -Albuterol every 4 hours as needed for shortness of breath -Tessalon Perles as needed for cough (3) Upper GI bleed ICD Codes: K92.2 - Gastrointestinal hemorrhage, unspecified Status: Acute Plan: -Patient with one episode of hematemesis over the last 24 hours -Patient with history of gastric ulceration and gastritis per patient report requiring prior transfusions -H/H: 6.3/21.7 -MCV 72.6 -Iron panel ordered -GI consulted, appreciate recommendations -2 units PRBC ordered in ER -H/H ordered posttransfusion (4) Anemia ICD Codes: D64.9 - Anemia, unspecified Status: Acute Plan: -Please see plan as above for upper GI bleed (5) Chest pain ICD Codes: R07.9 - Chest pain, unspecified Status: Acute Plan: -Patient complaining of chest tightness/pressure/pain with multiple risk factors for ACS -Troponin: 0.02, troponin 2 -CK-MB: 7.5, trend 2 -BNP: Pending -EKG: Atrial fibrillation with heart rate of 82 at time of exam. No acute ST or T-wave changes appreciated. (Per medical team read) -Telemetry ordered (6) Atrial fibrillation ICD Codes: I48.91 - Unspecified atrial fibrillation Status: Chronic Plan: -EKG: Atrial fibrillation with heart rate of 82 at time of exam. No acute ST or T-wave changes appreciated. (Per medical team read) -Telemetry ordered Medications: -Hold home warfarin due to anemia/upper GI bleed (7) Headache ICD Codes: R51 - Headache Status: Chronic Plan: -Patient with one-year history of headache consistent with tension headache Medications: -Continue home hydrocodone for pain (8) Chronic low back pain ICD Codes: M54.5 - Low back pain; G89.29 - Other chronic pain Status: Chronic Plan: -Continue home hydrocodone and gabapentin (9) Hypertension ICD Codes: I10 - Essential (primary) hypertension Status: Chronic Plan: Patient does report sleep study consistent with sleep apnea, however has not been evaluated for CPAP at this time. Medications: -Continue home lisinopril, nifedipine, and clonidine -Hydralazine 10 mg p.o. as needed for blood pressure greater than 180/100 (10) Medical contraindication to deep vein thrombosis (DVT) prophylaxis ICD Codes: Z53.09 - Procedure and treatment not carried out because of other contraindication Status: Acute Plan: -Medical DVT prophylaxis contraindicated due to anemia/upper GI bleed -SCDs ordered (11) Nutrition, metabolism, and development symptoms ICD Codes: R63.8 - Other symptoms and signs concerning food and fluid intake Status: Acute Plan: -Fluids: Normal saline to start at maintenance rate as patient will be n.p.o. at midnight -Diet: Heart healthy as tolerated, patient to be n.p.o. at midnight for possible procedure tomorrow -Electrolytes: No acute abnormalities, continue to monitor -Prophylaxis: Zofran as needed for nausea/vomiting, albuterol as needed for shortness of breath/wheezing, Tessalon Perles as needed for cough, hydralazine as needed for blood pressure greater than 180/110 (Taye Wilson MD R2) Physician Certification 2 Midnight Certification Type: Admission for Inpatient Services Order for Inpatient Services The services are ordered in accordance with Medicare regulations or non- Medicare payer requirements, as applicable. In the case of services not specified as inpatient-only, they are appropriately provided as inpatient services in accordance with the 2-midnight benchmark. Estimated LOS (days): 3 3 days is the estimated time the patient will need to remain in the hospital, assuming treatment plan goals are met and no additional complications. Post-Hospital Plan: Home (Taye Wilson MD R2) Problem Qualifiers (1) Sepsis: Qualified Codes: A41.9 - Sepsis, unspecified organism (2) Left lower lobe pneumonia: Qualified Codes: J18.1 - Lobar pneumonia, unspecified organism (3) Anemia: Qualified Codes: D50.0 - Iron deficiency anemia secondary to blood loss ( chronic) (4) Chest pain: Qualified Codes: R07.1 - Chest pain on breathing (5) Atrial fibrillation: Qualified Codes: I48.1 - Persistent atrial fibrillation (6) Headache: Qualified Codes: G44.229 - Chronic tension-type headache, not intractable (7) Chronic low back pain: Qualified Codes: M54.5 - Low back pain; G89.29 - Other chronic pain (8) Hypertension: Qualified Codes: I10 - Essential (primary) hypertension Taye Wilson MD R2 Aug 27, 2017 17:45 Mark Arevalo MD Aug 28, 2017 12:09
[2017-08-27] MEDS ORDERED: ACETAMINOPHEN 325 MG TAB PO PRN (18:45)
[2017-08-27 19:13] LABS: % SATURATION IRON PROFILE 7.7 % (20-50); IRON (FE) 32 MCG/DL (65-175); TOTAL IRON BINDING CAPACITY 417 MCG/DL (250-450)
[2017-08-27] MEDS ORDERED: hydrALAZINE HCL 10 MG TAB PO PRN (19:15)
[2017-08-27] MEDS ORDERED: ONDANSETRON ODT 4 MG TAB PO PRN (20:00)
[2017-08-27] MEDS: SODIUM CHLORIDE 0.9% FLUSH 10 ML FLUSH IV FLUSH SCH (21:00)
[2017-08-27] MEDS ORDERED: SODIUM CHLORIDE 0.9% FLUSH 10 ML FLUSH IV FLUSH SCH (21:00)
[2017-08-27] MEDS: cefTRIAXone INJ 1,000 MG in SODIUM CHLORIDE 0.9% INJ 100 ML IV SCH (21:10)
[2017-08-27] MEDS: cloNIDine HCL 0.2 MG TAB PO SCH (21:10)
[2017-08-27 21:11] LABS: TROPONIN I LESS THAN 0.02 NG/ML (0.02-0.05)
[2017-08-27] MEDS: ACETAMINOPHEN/HYDROcodone 325 MG/10 MG TAB PO PRN (21:25)
[2017-08-28] VITALS (13 sets, daily range): BP systolic 141–162; BP diastolic 76–92; PULSE 18–92; RESP 16–22; TEMP 98–98.6; O2SAT 94–98
[2017-08-28] MEDS ORDERED: FUROSEMIDE 20 MG/2 ML VIAL IV PUSH PRN (01:45)
[2017-08-28] MEDS: SODIUM CHLOR 0.9% 1000 ML INJ 1,000 ML IV SCH ×5 (02:00→22:00)
[2017-08-28 03:06] LABS: BASOPHIL % 0.4 % (0.0-2.0); EOSINOPHIL % 0.1 % (0.0-4.0); HEMATOCRIT 25.5 % (39.0-51.0); HEMOGLOBIN 7.3 GM/DL (13.0-17.0); LYMPH % 4.8 % (9.0-44.0); LYMPHOCYTE # 0.2 TH/MM3 (1.0-4.8); MEAN CELL VOLUME 72.7 FL (80.0-100.0); MEAN CORPUSCULAR HEMOGLOBIN 20.9 PG (27.0-34.0); MEAN PLATELET VOLUME 7.6 FL (7.0-11.0); MONO % 2.4 % (0.0-8.0); MONOCYTE # 0.1 TH/MM3 (0-0.9); NEUT % 92.3 % (16.0-70.0); PLATELET COUNT 237 TH/MM3 (150-450); RED BLOOD COUNT 3.51 MIL/MM3 (4.50-5.90); RED CELL DISTRIBUTION WIDTH 22.7 % (11.6-17.2); WHITE BLOOD COUNT 3.3 TH/MM3 (4.0-11.0)
[2017-08-28 03:10] LABS: MEAN CORPUSCULAR HGB CONC 28.7 % (32.0-36.0)
[2017-08-28] MEDS: RESP: ALBUTEROL 2.5 MG/IPRATROPIUM 0.5 MG NEB (SCH) INH ×4 (03:31→21:28)
[2017-08-28 03:40] LABS: TROPONIN I LESS THAN 0.02 NG/ML (0.02-0.05)
[2017-08-28 06:02] LABS: CORRECTED NUCLEATED RBC 3 /100 WBC (0-0); LYMPHOCYTES 5 % (9-44); NEUTROPHIL # MANUAL DIFF 3.1 TH/MM3 (1.8-7.7); NUCLEATED RED BLOOD CELL 3 (0-0); POLYS (SEG NEUTROPHILS) 95 % (16-70)
[2017-08-28 06:03] LABS: ACANTHOCYTES OCC (NORMAL); HELMET CELLS OCC (NORMAL); OVALOCYTES 1+ (NORMAL); SPHEROCYTES OCC (NORMAL)
[2017-08-28 06:05] LABS: POLYCHROMASIA 2.2 % (0.0-1.9)
[2017-08-28] MEDS: ACETAMINOPHEN/HYDROcodone 325 MG/10 MG TAB PO PRN ×3 (06:29→18:45)
[2017-08-28] MEDS: SODIUM CHLORIDE 0.9% FLUSH 10 ML FLUSH IV FLUSH SCH ×2 (09:00→22:00)
[2017-08-28] MEDS ORDERED: NON-FORMULARY DRUG (Simvastatin (Zocor) 20 MG) PO SCH (09:00)
--- NOTE | 2017-08-28 09:24 | PD.CONS ---
HPI History of Present Illness This is a 57 year old M with PMH significant for a-fib who takes Coumadin but has not remembered to take it for the past few days, asthma, and HTN who presented to the ER yesterday for progressive shortness of breath over the past few weeks. Pt reports SOB has been more noticeable for the past 3 days, initially was mostly on exertion but now also at rest. Complaining of chest tightness and palpitations, denies chest pain. Pt complaining of hematemesis, blood in his stool and was found to be anemic in the ER, our service was consulted to further evaluate. Pt reports two episodes of emesis yesterday morning, the first one with BRB and the second episode without any blood. Also noticed some blood in his stool this morning. Denies acid reflux, heartburn, abdominal pain, unintentional weight loss. Our service previously evaluated patient for anemia in March. Colonoscopy --> Ulcer IC valve, internal and external hemorrhoids. Pathology (ileocecal valve) colonic mucosa with a benign lymphoid aggregate. EGD --> Gastritis, normal duodenum, midesophagus predominant vein, hiatal hernia. Pathology (antrum) mildly active chronic antral gastritis with intestinal metaplasia. Pt reports drinking 2-3 days a week , mostly on the weekends, does report a pint of liquor on the weekends. Denies smoking and illicit drug use. On previous admission pt reported Cocaine prior to admission, states does not use cocaine anymore. Family history significant for colon cancer, mother. (Marie Hanks) PFSH Past Medical History Anemia Asthma A-fib HTN Past Surgical History Colonoscopy EGD (Marie Hanks) Coded Allergies: No Known Allergies (Verified Allergy, Unknown, 08/27/17) Social History ETOH- 2-3 days a week, normally on the weekends- drinks a pint of liquor on those days Denies smoking Denies illicit drug use- previous reported marijuana and cocaine, states no longer using these (Marie Hanks) Review of Systems Gastrointestinal: COMPLAINS OF: Bloody stools, Nausea, Vomiting, Hematemesis, DENIES: Abdominal pain, Black stools, Constipation, Diarrhea, Difficulty Swallowing, Odynophagia, Swelling of Abdomen, Heartburn (Marie Hanks) GI Exam Vitals I&O Vital Signs Date Time Temp Pulse Resp B/P (MAP) Pulse Ox O2 Delivery O2 Flow Rate FiO2 08/28/17 07:12 Nasal Cannula 2.00 08/28/17 04:00 71 08/28/17 02:51 98.5 18 20 161/87 (111) 94 08/28/17 02:42 98.4 72 20 155/86 96 08/28/17 02:30 98.4 66 20 162/92 96 08/27/17 23:45 79 08/27/17 22:48 99.2 83 16 135/78 96 08/27/17 22:31 99.7 87 16 157/77 96 08/27/17 20:34 95 Nasal Cannula 3.00 08/27/17 19:30 98.1 89 20 142/62 (88) 93 08/27/17 17:25 85 23 175/81 (112) 96 Nasal Cannula 3.00 08/27/17 15:50 94 Nasal Cannula 3.00 08/27/17 14:30 98.3 08/27/17 14:29 Nasal Cannula 3.00 08/27/17 14:29 22 95 Nasal Cannula 3.00 08/27/17 11:27 97.3 98 26 188/69 (108) 87 I/O 08/27/17 08/27/17 08/27/17 08/28/17 08/28/17 08/28/17 07:00 15:00 23:00 07:00 15:00 23:00 Intake Total 102 ml 800 ml Output Total 2600 ml Balance 102 ml -1800 ml Intake IV Total 100 ml Packed Cells 800 ml Blood Product IV Normal Saline Flush 2 ml Output Urine Total 2600 ml Imaging Last Impressions Chest X-Ray 08/27/17 0000 Signed Impressions: CONCLUSION: Left perihilar airspace disease concerning for early infiltratete. Laboratory Test 08/27/17 14:35 08/27/17 16:00 08/27/17 20:33 08/28/17 02:45 White Blood Count 5.1 TH/MM3 3.3 TH/MM3 Red Blood Count 2.99 MIL/MM3 3.51 MIL/MM3 Hemoglobin 6.3 GM/DL 7.3 GM/DL Hematocrit 21.7 % 25.5 % Mean Corpuscular Volume 72.6 FL 72.7 FL Mean Corpuscular Hemoglobin 20.9 PG 20.9 PG Mean Corpuscular Hemoglobin Concent 28.8 % 28.7 % Red Cell Distribution Width 22.7 % 22.7 % Platelet Count 225 TH/MM3 237 TH/MM3 Mean Platelet Volume 7.8 FL 7.6 FL Neutrophils (%) (Auto) 87.1 % 92.3 % Lymphocytes (%) (Auto) 3.7 % 4.8 % Monocytes (%) (Auto) 7.9 % 2.4 % Eosinophils (%) (Auto) 0.6 % 0.1 % Basophils (%) (Auto) 0.7 % 0.4 % Neutrophils # (Auto) 4.4 TH/MM3 3.0 TH/MM3 Lymphocytes # (Auto) 0.2 TH/MM3 0.2 TH/MM3 Monocytes # (Auto) 0.4 TH/MM3 0.1 TH/MM3 Eosinophils # (Auto) 0.0 TH/MM3 0.0 TH/MM3 Basophils # (Auto) 0.0 TH/MM3 0.0 TH/MM3 CBC Comment AUTO DIFF AUTO DIFF Differential Comment AUTO DIFF CONFIRMED FINAL DIFF MANUAL Platelet Estimate NORMAL NORMAL Platelet Morphology Comment NORMAL NORMAL Basophilic Stippling FAINT Spherocytes 1+ OCC Tear Drop Cells 1+ Ovalocytes 1+ 1+ Acanthocytes OCC OCC Blood Urea Nitrogen 20 MG/DL Creatinine 1.21 MG/DL Random Glucose 75 MG/DL Total Protein 7.1 GM/DL Albumin 3.1 GM/DL Calcium Level 7.8 MG/DL Alkaline Phosphatase 81 U/L Aspartate Amino Transf (AST/SGOT) 31 U/L Alanine Aminotransferase (ALT/SGPT) 20 U/L Total Bilirubin 1.1 MG/DL Sodium Level 142 MEQ/L Potassium Level 4.0 MEQ/L Chloride Level 112 MEQ/L Carbon Dioxide Level 16.4 MEQ/L Anion Gap 14 MEQ/L Estimat Glomerular Filtration Rate 75 ML/MIN Lactic Acid Level 1.0 mmol/L 1.2 mmol/L Iron Level 32 MCG/DL Total Iron Binding Capacity 417 MCG/DL Percent Iron Saturation 7.7 % Total Creatine Kinase 304 U/L 329 U/L 317 U/L Creatine Kinase MB 7.5 NG/ML 7.3 NG/ML 6.6 NG/ML Troponin I 0.02 NG/ML LESS THAN 0.02 NG/ML LESS THAN 0.02 NG/ML B-Type Natriuretic Peptide 485 PG/ML Prothrombin Time 12.2 SEC Prothromb Time International Ratio 1.2 RATIO Activated Partial Thromboplast Time 29.7 SEC Urine Color YELLOW Urine Turbidity CLEAR Urine pH 6.5 Urine Specific [place] 1.013 Urine Protein 30 mg/dL Urine Glucose (UA) NEG mg/dL Urine Ketones 10 mg/dL Urine Occult Blood TRACE Urine Nitrite NEG Urine Bilirubin NEG Urine Urobilinogen 2.0 MG/DL Urine Leukocyte Esterase NEG Urine WBC LESS THAN 1 /hpf Urine Hyaline Casts 2 /lpf Microscopic Urinalysis Comment CULT NOT INDICATED Urine Opiates Screen NEG Urine Barbiturates Screen NEG Urine Amphetamines Screen NEG Urine Benzodiazepines Screen NEG Urine Cocaine Screen POS Urine Cannabinoids Screen POS Creatine Kinase MB % 2.2 % 2.1 % Differential Total Cells Counted 100 Neutrophils % (Manual) 95 % Lymphocytes % 5 % Neutrophils # (Manual) 3.1 TH/MM3 Nucleated Red Blood Cells 3 /100 WBC Polychromasia 2.2 % Helmet Cells OCC Date/Time Source Procedure Growth Status 08/27/17 14:50 Blood Line Aerobic Blood Culture Pending Received 08/27/17 14:50 Blood Line Anaerobic Blood Culture Pending Received 08/27/17 16:00 Urine Clean Catch Legionella Antigen Pending Received 08/27/17 16:00 Urine Clean Catch Streptococcus pneumoniae Antigen (M Pending Received Physical Examination HEENT: Normocephalic; atraumatic CHEST: Diminished BS CARDIAC: Irregular rate and rhythm ABDOMEN: Round, soft, nontender, bowel sounds active SKIN: Normal; no rash; no jaundice. BLOCKLAYER: Alert and oriented times three. (Marie Hanks) Assessment and Plan Plan Assessment: - Anemia with reports of hematemesis and hematochezia Pt reports 2 episodes of emesis early yesterday morning, the first with blood the second without. Also reports one episode of blood in his stool this morning, states red blood. Denies acid reflux, heartburn, abdominal pain, unintentional weight loss. Previously seen by our service for anemia: Colonoscopy --> Ulcer IC valve, internal and external hemorrhoids. Pathology (ileocecal valve) colonic mucosa with a benign lymphoid aggregate. EGD --> Gastritis, normal duodenum, midesophagus predominant vein, hiatal hernia. Pathology (antrum) mildly active chronic antral gastritis with intestinal metaplasia. Of note, on Coumadin for a-fib but states he has forgotten to take it for the past couple days. INR-1.2 Also has been taking Ibuprofen BID for the past month for headaches. H/H 6.3/21.7 on admission now S/P 2 U PRBCs currently 7.3/25.5 Plan: EGD and colonoscopy tomorrow Clear liquids today Golytely prep NPO after MN Monitor H/H Transfuse as needed Protonix Keep Coumadin on hold Further recommendations based on findings of above and clinical course Pt has been seen and examined by myself and Dr. Tadeo and this note is written on his behalf (Marie Hanks) Physician Comments Seen with Marie plan as above. Will obtain consent for EGD and Colonoscopy in AM Further recommendations to follow Thank you for the consult (Gio Tadeo MD) Marie Hanks Aug 28, 2017 09:24 Gio Tadeo MD Aug 28, 2017 14:10
[2017-08-28] MEDS: NIFEdipine 90 MG SUSTAINED RELEASE TAB PO SCH (09:29)
[2017-08-28] MEDS: AZITHROMYCIN 250 MG TAB PO SCH (09:29)
[2017-08-28] MEDS: GABAPENTIN 300 MG CAP PO SCH ×3 (09:30→18:45)
[2017-08-28] MEDS: PRAVASTATIN SOD 40 MG TAB PO SCH (09:30)
[2017-08-28] MEDS: LISINOPRIL 20 MG TAB PO SCH (09:30)
[2017-08-28] MEDS ORDERED: PANTOPRAZOLE SODIUM 40 MG VIAL IV PUSH SCH (09:30)
[2017-08-28] MEDS: cloNIDine HCL 0.2 MG TAB PO SCH ×2 (09:31→22:00)
[2017-08-28 09:39] LABS: AUTOMATED NEUTROPHIL # 2.4 TH/MM3 (1.8-7.7); BASOPHIL % 0.2 % (0.0-2.0); EOSINOPHIL % 0.1 % (0.0-4.0); HEMATOCRIT 26.7 % (39.0-51.0); HEMOGLOBIN 7.9 GM/DL (13.0-17.0); LYMPH % 7.3 % (9.0-44.0); LYMPHOCYTE # 0.2 TH/MM3 (1.0-4.8); MEAN CELL VOLUME 73.3 FL (80.0-100.0); MEAN CORPUSCULAR HEMOGLOBIN 21.6 PG (27.0-34.0); MEAN PLATELET VOLUME 7.4 FL (7.0-11.0); MONO % 7.4 % (0.0-8.0); MONOCYTE # 0.2 TH/MM3 (0-0.9); PLATELET COUNT 224 TH/MM3 (150-450); RED BLOOD COUNT 3.65 MIL/MM3 (4.50-5.90); RED CELL DISTRIBUTION WIDTH 22.8 % (11.6-17.2); WHITE BLOOD COUNT 2.9 TH/MM3 (4.0-11.0)
[2017-08-28 09:40] LABS: MEAN CORPUSCULAR HGB CONC 29.5 % (32.0-36.0)
[2017-08-28 10:14] LABS: ACANTHOCYTES OCC (NORMAL); KERATOCYTES OCC (NORMAL); OVALOCYTES 1+ (NORMAL)
--- NOTE | 2017-08-28 12:08 | HHI.HP ---
[facility] Service Family Medicine Primary Care Physician Viktoriya Mcgill MD Admission Diagnosis Pneumonia, GI bleed, anemia, hypoxia Diagnoses: (1) Sepsis (2) Left lower lobe pneumonia (3) Upper GI bleed (4) Anemia (5) Chest pain (6) Atrial fibrillation (7) Headache (8) Chronic low back pain (9) Hypertension (10) Medical contraindication to deep vein thrombosis (DVT) prophylaxis (11) Nutrition, metabolism, and development symptoms International Travel<30 Days: No Contact w/Intl Traveler<30days: No Known Affected Area: No History of Present Illness Patient examined during rounds with medical examiner team. This morning he is feeling better, states that his chest pain has resolved but continues to feel somewhat short of breath. He continues to cough and states that it is productive of a greenish/yellow sputum. He has not had any episodes of emesis since being in the hospital but did have a bowel movement that he states had bright red blood mixed with stool. He denies fevers or chills, he denies palpitations, he denies abdominal pain, he denies fevers or chills, he denies any nausea or vomiting. In summary this is a 57-year-old male who presents to the emergency department with progressive shortness of breath associated with some chest pain. He endorses a cough that is productive of yellow sputum that began having some red , bloody streaks in it. He then began to feel short of breath associated with this cough and developed a chest pain that he describes as a "pressure" and "squeezing" across his anterior chest. On the day prior to presentation, he had one episode of emesis that he states had a significant amount of red blood with it. He does report a history of heartburn that has slowly been getting worse and has been really bad lately. He also has been taking high doses of ibuprofen over the last several weeks to months due to headaches. Per chart review, patient was admitted in March of 2017 for cocaine induced chest pain with a negative cardiac work up. Patient was noted to have anemia. GI was consulted who completed EGD and colonoscopy. Studies showed mild gastritis with an ulceration at the ileocecal valve as well as hemorrhoids ( internal and external). Biopsies of the gastric, duodenal, and ileocecal mucosa were benign. Patient goes on to say that he did require a blood transfusion before due to bleeding gastric ulcers approximately 1 year ago. Past Family Social History Past Medical History Bronchial asthma atrial fibrillation hypertension Past Surgical History No past surgical history reported Allergies: Coded Allergies: No Known Allergies (Verified Allergy, Unknown, 08/27/17) Family History Mother - HTN, PA, Father - Unknown Sister - PA, 2 Sisters - Unknown Malignancy Social History Lives with Brother in Law and his children. Tobacco - No reported history Alcohol - Drinks over each weekend, drinks up to a fifth of hard alcohol each time, no reported history of withdrawal, last drink was approximately 1 week ago Illicit - Previous marijuana and cocaine use reported, last use 03/2017; no other report of use Physical Exam Vital Signs Vital Signs Date Time Temp Pulse Resp B/P (MAP) Pulse Ox O2 Delivery O2 Flow Rate FiO2 08/28/17 10:31 94 Nasal Cannula 2.00 08/28/17 08:01 98.6 75 22 154/89 (110) 98 08/28/17 08:00 Nasal Cannula 2.00 08/28/17 07:12 Nasal Cannula 2.00 08/28/17 04:00 71 08/28/17 02:51 98.5 18 20 161/87 (111) 94 08/28/17 02:42 98.4 72 20 155/86 96 08/28/17 02:30 98.4 66 20 162/92 96 08/27/17 23:45 79 08/27/17 22:48 99.2 83 16 135/78 96 08/27/17 22:31 99.7 87 16 157/77 96 08/27/17 20:34 95 Nasal Cannula 3.00 08/27/17 19:30 98.1 89 20 142/62 (88) 93 08/27/17 17:25 85 23 175/81 (112) 96 Nasal Cannula 3.00 08/27/17 15:50 94 Nasal Cannula 3.00 08/27/17 14:30 98.3 08/27/17 14:29 Nasal Cannula 3.00 08/27/17 14:29 22 95 Nasal Cannula 3.00 Physical Exam GENERAL: Obese -[place] male, sitting up in bed in no obvious distress. Breathing normally and able to talk without getting short of breath SKIN: Warm and dry. No rash. CARDIOVASCULAR: Irregular rate and rhythm without obvious murmurs, gallops, or rubs. 2+ pulses in all four extremities. Chest not tender to palpation. RESPIRATORY: Scattered faint rhonchi bilateral bases, no obvious crackles or rails. GASTROINTESTINAL: Abdomen soft, non-tender, nondistended with positive bowel sounds. MUSCULOSKELETAL: 1+ pitting edema up to mid tibia. No cyanosis or edema. No calf tenderness. Ambulating well per report. NEURO/PSYCH: Afocal. Awake, alert, and oriented x3. Normal speech and judgement. Laboratory Laboratory Tests Test 08/27/17 14:35 08/27/17 16:00 08/27/17 20:33 08/28/17 02:45 White Blood Count 5.1 3.3 Red Blood Count 2.99 3.51 Hemoglobin 6.3 7.3 Hematocrit 21.7 25.5 Mean Corpuscular Volume 72.6 72.7 Mean Corpuscular Hemoglobin 20.9 20.9 Mean Corpuscular Hemoglobin Concent 28.8 28.7 Red Cell Distribution Width 22.7 22.7 Platelet Count 225 237 Mean Platelet Volume 7.8 7.6 Neutrophils (%) (Auto) 87.1 92.3 Lymphocytes (%) (Auto) 3.7 4.8 Monocytes (%) (Auto) 7.9 2.4 Eosinophils (%) (Auto) 0.6 0.1 Basophils (%) (Auto) 0.7 0.4 Neutrophils # (Auto) 4.4 3.0 Lymphocytes # (Auto) 0.2 0.2 Monocytes # (Auto) 0.4 0.1 Eosinophils # (Auto) 0.0 0.0 Basophils # (Auto) 0.0 0.0 CBC Comment AUTO DIFF AUTO DIFF Differential Comment AUTO DIFF CONFIRMED FINAL DIFF MANUAL Platelet Estimate NORMAL NORMAL Platelet Morphology Comment NORMAL NORMAL Basophilic Stippling FAINT Spherocytes 1+ OCC Tear Drop Cells 1+ Ovalocytes 1+ 1+ Acanthocytes OCC OCC Blood Urea Nitrogen 20 Creatinine 1.21 Random Glucose 75 Total Protein 7.1 Albumin 3.1 Calcium Level 7.8 Alkaline Phosphatase 81 Aspartate Amino Transf (AST/SGOT) 31 Alanine Aminotransferase (ALT/SGPT) 20 Total Bilirubin 1.1 Sodium Level 142 Potassium Level 4.0 Chloride Level 112 Carbon Dioxide Level 16.4 Anion Gap 14 Estimat Glomerular Filtration Rate 75 Lactic Acid Level 1.0 1.2 Iron Level 32 Total Iron Binding Capacity 417 Percent Iron Saturation 7.7 Total Creatine Kinase 304 329 317 Creatine Kinase MB 7.5 7.3 6.6 Troponin I 0.02 LESS THAN 0.02 LESS THAN 0.02 B-Type Natriuretic Peptide 485 Prothrombin Time 12.2 Prothromb Time International Ratio 1.2 Activated Partial Thromboplast Time 29.7 Urine Color YELLOW Urine Turbidity CLEAR Urine pH 6.[address] [place] 1.013 Urine Protein 30 Urine Glucose (UA) NEG Urine Ketones 10 Urine Occult Blood TRACE Urine Nitrite NEG Urine Bilirubin NEG Urine Urobilinogen 2.0 Urine Leukocyte Esterase NEG Urine WBC LESS THAN 1 Urine Hyaline Casts 2 Microscopic Urinalysis Comment CULT NOT INDICATED Urine Opiates Screen NEG Urine Barbiturates Screen NEG Urine Amphetamines Screen NEG Urine Benzodiazepines Screen NEG Urine Cocaine Screen POS Urine Cannabinoids Screen POS Creatine Kinase MB % 2.2 2.1 Differential Total Cells Counted 100 Neutrophils % (Manual) 95 Lymphocytes % 5 Neutrophils # (Manual) 3.1 Nucleated Red Blood Cells 3 Polychromasia 2.2 Helmet Cells OCC Test 08/28/17 09:15 White Blood Count 2.9 Red Blood Count 3.65 Hemoglobin 7.9 Hematocrit 26.7 Mean Corpuscular Volume 73.3 Mean Corpuscular Hemoglobin 21.6 Mean Corpuscular Hemoglobin Concent 29.5 Red Cell Distribution Width 22.8 Platelet Count 224 Mean Platelet Volume 7.4 Neutrophils (%) (Auto) 85.0 Lymphocytes (%) (Auto) 7.3 Monocytes (%) (Auto) 7.4 Eosinophils (%) (Auto) 0.1 Basophils (%) (Auto) 0.2 Neutrophils # (Auto) 2.4 Lymphocytes # (Auto) 0.2 Monocytes # (Auto) 0.2 Eosinophils # (Auto) 0.0 Basophils # (Auto) 0.0 CBC Comment AUTO DIFF Differential Comment AUTO DIFF CONFIRMED Platelet Estimate NORMAL Platelet Morphology Comment NORMAL Ovalocytes 1+ Acanthocytes OCC Keratocytes OCC Date/Time Source Procedure Growth Status 08/27/17 14:50 Blood Line Aerobic Blood Culture - Preliminary NO GROWTH IN 1 DAY Resulted 08/27/17 14:50 Blood Line Anaerobic Blood Culture - Preliminary NO GROWTH IN 1 DAY Resulted 08/27/17 16:00 Urine Clean Catch Legionella Antigen - Final PRESUMPTIVE NEGATIVE FOR LEGIONELLA P... Complete 08/27/17 16:00 Urine Clean Catch Streptococcus pneumoniae Antigen (M - Final PRESUMPTIVE NEGATIVE FOR STREPTOCOCCU... Complete Result Diagram: 08/28/17 0915 08/27/17 1435 Imaging Last 72 hours Impressions Chest X-Ray 08/27/17 0000 Signed Impressions: CONCLUSION: Left perihilar airspace disease concerning for early infiltratete. Caprini VTE Risk Assessment Caprini VTE Risk Assessment: Mod/High Risk (score >= 2) Caprini Risk Assessment Model Point Value = 1 Point Value = 2 Point Value = 3 Point Value = 5 Age 41-60 Minor surgery BMI > 25 kg/m2 Swollen legs Varicose veins or History of unexplained or recurrent spontaneous Oral contraceptives or hormone replacement Sepsis (< 1 month) Serious lung disease, including pneumonia (< 1 month) Abnormal pulmonary function Acute myocardial infarction Congestive heart failure (< 1 month) History of inflammatory bowel disease Medical patient at bed rest Age 61-74 Arthroscopic surgery Major open surgery (> 45 min) Laparoscopic surgery (> 45 min) Malignancy Confined to bed (> 72 hours) Immobilizing plaster cast Central venous access Age >= 75 History of VTE Family history of VTE Factor V Leiden Prothrombin [id number] Lupus anticoagulant Anticardiolipin antibodies Elevated serum homocysteine Heparin-induced thrombocytopenia Other congenital or acquired thrombophilia Stroke (< 1 month) Elective arthroplasty Hip, pelvis, or leg fracture Acute spinal cord injury (< 1 month) Prophylaxis Regimen Total Risk Factor Score Risk Level Prophylaxis Regimen 0-1 Low Early ambulation 2 Moderate Order ONE of the following: *Sequential Compression Device (SCD) *Heparin 5000 units SQ BID 3-4 Higher Order ONE of the following medications: *Heparin 5000 units SQ TID *Enoxaparin/Lovenox 40 mg SQ daily (WT < 150 kg, CrCl > 30 mL/min) *Enoxaparin/Lovenox 30 mg SQ daily (WT < 150 kg, CrCl > 10-29 mL/min) *Enoxaparin/Lovenox 30 mg SQ BID (WT < 150 kg, CrCl > 30 mL/min) AND/OR *Sequential Compression Device (SCD) 5 or more Highest Order ONE of the following medications: *Heparin 5000 units SQ TID (Preferred with Epidurals) *Enoxaparin/Lovenox 40 mg SQ daily (WT < 150 kg, CrCl > 30 mL/min) *Enoxaparin/Lovenox 30 mg SQ daily (WT < 150 kg, CrCl > 10-29 mL/min) *Enoxaparin/Lovenox 30 mg SQ BID (WT < 150 kg, CrCl > 30 mL/min) AND *Sequential Compression Device (SCD) Assessment and Plan Assessment and Plan Mr. Sexton is a 57 y/o M presenting to the ED with acute worsening of shortness of breath found to have developing left sided pneumonia with anemia. Problem List: (1) Sepsis ICD Codes: A41.9 - Sepsis, unspecified organism Status: Acute Plan: Sepsis criteria on admission with tachycardia and tachypnea associated with left lower lobe pneumonia as infectious source - Lactic acid 1.0 Blood cultures ordered and pending Urine negative for Legionella and Streptococcus IV fluids with normal saline at 170 mL/hour IV antibiotics with Rocephin and azithromycin to treat pneumonia (2) Left lower lobe pneumonia ICD Codes: J18.1 - Lobar pneumonia, unspecified organism Status: Acute Plan: CXR: Left perihilar airspace disease concerning for early infiltrate. IV antibiotics: Rocephin 1 g IV every 24 hours Azithromycin 500 mg p.o. daily Received Levaquin 750 mg 1 in the emergency department Blood cultures ordered and pending Urine antigens for Legionella pneumococcal negative Influenza negative Supplemental oxygen as needed to keep saturations greater than 93% Monitor on telemetry and continuous pulse oximeter Respiratory CPT, Acapella, and incentive spirometry ordered Tylenol as needed for fever DuoNeb every 6 hours scheduled Albuterol every 4 hours as needed for shortness of breath Tessalon Perles as needed for cough (3) Upper GI bleed ICD Codes: K92.2 - Gastrointestinal hemorrhage, unspecified Status: Acute Plan: Hemoglobin 6.3 on arrival with positive Gastroccult and Hemoccult GI consulted, appreciate recommendations -EGD with colonoscopy planned for tomorrow Status post 2 units PRBC transfused on 08/28/17 Repeat hemoglobin 7.7 posttransfusion Monitor with CBCs and transfuse as necessary Protonix 40 mg IV twice daily (4) Anemia ICD Codes: D64.9 - Anemia, unspecified Status: Acute Plan: -Please see plan as above for upper GI bleed (5) Chest pain ICD Codes: R07.9 - Chest pain, unspecified Status: Acute Plan: UDS positive for cocaine and cannabinoids -Chest pain likely secondary to cocaine use Troponins 0.022 with no EKG changes BNP 485 EKG: Atrial fibrillation with heart rate of 82 at time of exam. No acute ST or T-wave changes appreciated. (Per medical team read) Telemetry ordered (6) Atrial fibrillation ICD Codes: I48.91 - Unspecified atrial fibrillation Status: Chronic Plan: Patient with a history of atrial fibrillation Is on nifedipine and warfarin at home -Has not been taking his home warfarin, INR on arrival was 1.2 -Continue home nifedipine Anticoagulation being held given current GI bleeding (7) Headache ICD Codes: R51 - Headache Status: Chronic Plan: Patient with one-year history of headache consistent with tension headache Medications: -Continue home hydrocodone for pain (8) Chronic low back pain ICD Codes: M54.5 - Low back pain; G89.29 - Other chronic pain Status: Chronic Plan: -Continue home hydrocodone and gabapentin (9) Hypertension ICD Codes: I10 - Essential (primary) hypertension Status: Chronic Plan: Patient does report sleep study consistent with sleep apnea, however has not been evaluated for CPAP at this time. Medications: -Continue home lisinopril, nifedipine, and clonidine -Hydralazine 10 mg p.o. as needed for blood pressure greater than 180/100 (10) Cocaine abuse ICD Codes: F14.10 - Cocaine abuse, uncomplicated Status: Acute Plan: Likely the source of chest pain on resident patient -Counseled on cessation of cocaine use (11) Medical contraindication to deep vein thrombosis (DVT) prophylaxis ICD Codes: Z53.09 - Procedure and treatment not carried out because of other contraindication Status: Acute Plan: -Medical DVT prophylaxis contraindicated due to anemia/upper GI bleed -SCDs ordered (12) Nutrition, metabolism, and development symptoms ICD Codes: R63.8 - Other symptoms and signs concerning food and fluid intake Status: Acute Plan: -Fluids: Normal saline to start at maintenance rate as patient will be n.p.o. at midnight -Diet: Heart healthy as tolerated, patient to be n.p.o. at midnight for possible procedure tomorrow -Electrolytes: No acute abnormalities, continue to monitor -Prophylaxis: Zofran as needed for nausea/vomiting, albuterol as needed for shortness of breath/wheezing, Tessalon Perles as needed for cough, hydralazine as needed for blood pressure greater than 180/110 Physician Certification 2 Midnight Certification Type: Admission for Inpatient Services Order for Inpatient Services The services are ordered in accordance with Medicare regulations or non- Medicare payer requirements, as applicable. In the case of services not specified as inpatient-only, they are appropriately provided as inpatient services in accordance with the 2-midnight benchmark. Estimated LOS (days): 2 2 days is the estimated time the patient will need to remain in the hospital, assuming treatment plan goals are met and no additional complications. Post-Hospital Plan: Not yet determined Problem Qualifiers (1) Sepsis: Qualified Codes: A41.9 - Sepsis, unspecified organism (2) Left lower lobe pneumonia: Qualified Codes: J18.1 - Lobar pneumonia, unspecified organism (3) Anemia: Qualified Codes: D50.0 - Iron deficiency anemia secondary to blood loss ( chronic) (4) Chest pain: Qualified Codes: R07.1 - Chest pain on breathing (5) Atrial fibrillation: Qualified Codes: I48.1 - Persistent atrial fibrillation (6) Headache: Qualified Codes: G44.229 - Chronic tension-type headache, not intractable (7) Chronic low back pain: Qualified Codes: M54.5 - Low back pain; G89.29 - Other chronic pain (8) Hypertension: Qualified Codes: I10 - Essential (primary) hypertension Mark Arevalo MD Aug 28, 2017 12:08
[2017-08-28] MEDS: PANTOPRAZOLE SODIUM 40 MG VIAL IV PUSH SCH ×2 (12:30→22:00)
[2017-08-28] MEDS ORDERED: PEG (High)/E-LYTE SOLN 4000 ML BTL PO ONE (16:00)
--- NOTE | 2017-08-28 16:56 | EKG ---
Date Performed: 08/27/2017 Time Performed: 15:16:53 PTAGE: 57 years EKG: ATRIAL FIBRILLATION NONSPECIFIC ST & T-WAVE ABNORMALITY ABNORMAL ECG Since the PREVIOUS TRACING , no significant change noted PREVIOUS TRACIN04/03/2017 17.47 DOCTOR: Monique Reardon Interpretating Date/Time 08/28/2017 16:54:23
[2017-08-28] MEDS: cefTRIAXone INJ 1,000 MG in SODIUM CHLORIDE 0.9% INJ 100 ML IV SCH (22:00)
[2017-08-29] VITALS (13 sets, daily range): BP systolic 115–154; BP diastolic 59–84; PULSE 81–116; RESP 18–20; TEMP 97.5–98.5; O2SAT 96–100
[2017-08-29] MEDS: ACETAMINOPHEN/HYDROcodone 325 MG/10 MG TAB PO PRN ×3 (02:01→21:21)
[2017-08-29] MEDS: RESP: ALBUTEROL 2.5 MG/IPRATROPIUM 0.5 MG NEB (SCH) INH ×4 (03:16→19:25)
[2017-08-29] MEDS: SODIUM CHLOR 0.9% 1000 ML INJ 1,000 ML IV SCH ×2 (05:25→12:23)
[2017-08-29] MEDS: BENZONATATE 100 MG CAP PO PRN (05:57)
[2017-08-29 06:27] LABS: AUTOMATED NEUTROPHIL # 4.5 TH/MM3 (1.8-7.7); BASOPHIL % 0.3 % (0.0-2.0); EOSINOPHIL % 0.6 % (0.0-4.0); HEMATOCRIT 26.7 % (39.0-51.0); HEMOGLOBIN 7.8 GM/DL (13.0-17.0); LYMPH % 11.6 % (9.0-44.0); LYMPHOCYTE # 0.7 TH/MM3 (1.0-4.8); MEAN CELL VOLUME 74.5 FL (80.0-100.0); MEAN CORPUSCULAR HEMOGLOBIN 21.6 PG (27.0-34.0); MEAN PLATELET VOLUME 7.8 FL (7.0-11.0); MONO % 8.7 % (0.0-8.0); MONOCYTE # 0.5 TH/MM3 (0-0.9); NEUT % 78.8 % (16.0-70.0); PLATELET COUNT 251 TH/MM3 (150-450); RED BLOOD COUNT 3.58 MIL/MM3 (4.50-5.90); RED CELL DISTRIBUTION WIDTH 22.8 % (11.6-17.2); WHITE BLOOD COUNT 5.7 TH/MM3 (4.0-11.0)
[2017-08-29 06:49] LABS: AST (GOT) 21 U/L (15-37); BICARBONATE 19.5 MEQ/L (21.0-32.0); BLOOD UREA NITROGEN 15 MG/DL (7-18); CALCIUM 7.6 MG/DL (8.5-10.1); CHLORIDE 109 MEQ/L (98-107); CREATININE 1.24 MG/DL (0.60-1.30); GLOMERULAR FILTRATION RATE 73 ML/MIN (>89); GLUCOSE,RANDOM 106 MG/DL (74-106); SODIUM (NA) 142 MEQ/L (136-145)
[2017-08-29 06:50] LABS: ALT (GPT) 21 U/L (12-78)
[2017-08-29 06:52] LABS: ALKALINE PHOSPHATASE 64 U/L (45-117); TOTAL BILIRUBIN ADULT 0.6 MG/DL (0.2-1.0); TOTAL PROTEIN 6.5 GM/DL (6.4-8.2)
[2017-08-29 08:35] LABS: BANDS 1 % (0-6); CORRECTED NUCLEATED RBC 2 /100 WBC (0-0); KERATOCYTES OCC (NORMAL); LYMPHOCYTES 9 % (9-44); MONOCYTES 12 % (0-8); NEUTROPHIL # MANUAL DIFF 4.5 TH/MM3 (1.8-7.7); NUCLEATED RED BLOOD CELL 2 (0-0); POLYS (SEG NEUTROPHILS) 78 % (16-70)
[2017-08-29 08:36] LABS: OVALOCYTES 1+ (NORMAL)
[2017-08-29] MEDS: GABAPENTIN 300 MG CAP PO SCH ×3 (09:00→17:25)
[2017-08-29] MEDS ORDERED: DO NOT ADM ANY ANTICOAGULANT DRUGS PRN (11:13)
--- NOTE | 2017-08-29 11:18 | GIPROC ---
[facility] [address] [facility]. [facility], [address] COLONOSCOPY PROCEDURE REPORT EXAM DATE: 08/29/2017 PATIENT NAME: Keith Sexton MR #: [id number] BIRTHDATE: 1960 ENDOSCOPIST: Gio Tadeo MD ORDER #: [id number] ROBOTIC TOY INVENTOR: Zeny Hassan and Natasha Barros STATUS: inpatient INDICATIONS: The patient is a 57 yr old male here for a colonoscopy due to anemia, non-specific PROCEDURE PERFORMED: Colonoscopy, diagnostic MEDICATIONS: None and Per Anesthesia. PREP QUALITY: suboptimal PREP TYPE:GoLytely ESTIMATED BLOOD LOSS: None CONSENT: The patient understands the risks and benefits of the procedure and understands that these risks include, but are not limited to: sedation, allergic reaction, infection, perforation and/or bleeding. Alternative means of evaluation and treatment include, among others: physical exam, x-rays, and/or surgical intervention. The patient elects to proceed with this endoscopic procedure. medical equipment was checked for proper function. Hand hygiene and appropriate measures for infection prevention was taken. After the risks, benefits and alternatives of the procedure were thoroughly explained, Informed consent was verified, confirmed and timeout was successfully executed by the treatment team. A digital exam revealed no abnormalities of the rectum The Pentax [id number] endoscope was introduced through the anus and advanced to the cecum, which was identified by both the appendix and ileocecal valve. The instrument was then slowly withdrawn as the colon was fully examined. COLON FINDINGS: Diverticulum was found throughout the entire examined colon. The opening was small. Retroflexed views revealed no abnormalities The scope was then completely withdrawn from the patient and the procedure terminated. PROCEDURE WITHDRAWAL TIME:9minutes ADVERSE EVENTS: There were no complications. IMPRESSIONS: 1. Diverticulum throughout the entire examined colon 2. Retroflexed views revealed no abnormalities RECOMMENDATIONS: 1. High fiber diet 2. No seeds, nuts and popcorn in diet RECALL: Return 5 years Colonoscopy Gio Tadeo MD eSigned: Gio Tadeo MD 08/29/2017 11:17 AM cc:
--- NOTE | 2017-08-29 11:22 | GIPROC ---
[facility] [address] [facility]. [facility], [address] EGD PROCEDURE REPORT EXAM DATE: 08/29/2017 PATIENT NAME: Keith Sexton MR #: [id number] BIRTHDATE: 1960 ATTENDING: Gio Tadeo MD ORDER #: [id number] LEARNING SUPPORT SERVICES DIRECTOR: Zeny Hassan and Natasha Barros STATUS: inpatient INDICATIONS: The patient is a 57 yr old male here for an EGD due to anemia PROCEDURE PERFORMED: EGD, diagnostic MEDICATIONS: None and Per Anesthesia. TOPICAL ANESTHETIC: none CONSENT: The patient understands the risks and benefits of the procedure and understands that these risks include, but are not limited to: sedation, allergic reaction, infection, perforation and/or bleeding. Alternative means of evaluation and treatment include, among others: physical exam, x-rays, and/or surgical intervention. The patient elects to proceed with this endoscopic procedure. medical equipment was checked for proper function. Hand hygiene and appropriate measures for infection prevention was taken. After the risks, benefits and alternatives of the procedure were thoroughly explained, Informed consent was verified, confirmed and timeout was successfully executed by the treatment team. The patient was anesthetized with topical anesthesia and the [id number] (Pedi C) endoscope was introduced through the mouth and advanced to the second portion of the duodenum. Retroflexion was performed and was normal The gastroscope was then slowly withdrawn and removed. ESOPHAGUS: A medium sized hiatal hernia was noted. The esophagus was otherwise normal. STOMACH: The mucosa of the stomach appeared normal. DUODENUM: The duodenal mucosa appeared normal in the bulb and second portion of the duodenum and 3rd part duodenum. ADVERSE EVENTS: There were no complications. IMPRESSIONS: 1. Medium sized hiatal hernia otherwise normal esophagus. 2. The mucosa of the stomach appeared normal 3. Normal duodenal mucosa in the bulb and second portion of the duodenum and 3rd part duodenum RECOMMENDATIONS: No treatment PATIENT CONDITION: stable DISPOSITION: Observation REPEAT EXAM: NONE Gio Tadeo MD eSigned: Gio Tadeo MD 08/29/2017 11:22 AM cc: PATIENT NAME: Keith Sexton MR#: [id number]
[2017-08-29] MEDS ORDERED: PROPOFOL 200 MG/20 ML AMP IV ONE (12:00)
[2017-08-29] MEDS: PANTOPRAZOLE SODIUM 40 MG VIAL IV PUSH SCH (12:25)
[2017-08-29] MEDS: AZITHROMYCIN 250 MG TAB PO SCH (12:25)
[2017-08-29] MEDS: PRAVASTATIN SOD 40 MG TAB PO SCH (12:25)
[2017-08-29] MEDS: SODIUM CHLORIDE 0.9% FLUSH 10 ML FLUSH IV FLUSH SCH ×2 (12:25→21:21)
[2017-08-29] MEDS: cloNIDine HCL 0.2 MG TAB PO SCH ×2 (12:25→21:21)
[2017-08-29] MEDS: LISINOPRIL 20 MG TAB PO SCH (12:26)
[2017-08-29] MEDS: NIFEdipine 90 MG SUSTAINED RELEASE TAB PO SCH (12:26)
[2017-08-29] MEDS: RESP: ALBUTEROL 2.5 MG/3 ML NEB (PRN) NEB (14:43)
[2017-08-29] MEDS ORDERED: FUROSEMIDE 40 MG/4 ML VIAL IV PUSH ONE (15:00)
--- NOTE | 2017-08-29 16:54 | HHI.FPPN ---
Subjective Remarks Patient seen and examined this afternoon after GI procedure. No acute events overnight per nursing staff. Patient states that his EGD/colonoscopy went well. However, he is currently hungry and is asking for a full diet order. He states that he continues to have shortness of breath that is exacerbated when he walks to the restroom. He also complains of swollen lower extremities at this time. Otherwise he has no complaints and denies any fevers, chills, chest pain, NVD, abdominal pain, or calf tenderness. (Taye Wilson MD R2) Objective Vitals Vital Signs Date Time Temp Pulse Resp B/P (MAP) Pulse Ox O2 Delivery O2 Flow Rate FiO2 08/29/17 12:25 97.7 95 20 122/84 (97) 100 08/29/17 12:23 99 Nasal Cannula 2.50 08/29/17 12:15 Nasal Cannula 2.00 08/29/17 11:38 97.9 104 15 121/72 (88) 98 08/29/17 11:22 96.8 104 15 132/87 (102) 95 08/29/17 08:30 97.8 97 20 154/75 (101) 100 08/29/17 08:00 Nasal Cannula 2.00 08/29/17 08:00 95 08/29/17 07:18 Nasal Cannula 2.00 08/29/17 05:56 96 08/29/17 05:21 97.6 116 20 150/59 (89) 96 08/29/17 04:00 106 08/29/17 00:07 97.8 83 20 117/78 (91) 97 08/29/17 00:00 84 08/28/17 23:00 Nasal Cannula 2.00 08/28/17 20:22 98.0 92 16 141/76 (97) 98 08/28/17 20:00 Nasal Cannula 2.00 08/28/17 20:00 92 08/28/17 18:01 98.5 80 20 154/89 (110) 98 I/O 08/28/17 08/28/17 08/28/17 08/29/17 08/29/17 08/29/17 07:00 15:00 23:00 07:00 15:00 23:00 Intake Total 800 ml 1419 ml 1239 ml 200 ml Output Total 2600 ml 500 ml 800 ml Balance -1800 ml 1419 ml 739 ml -600 ml Intake Oral 420 ml 240 ml IV Total 999 ml 999 ml Packed Cells 800 ml Other 200 ml Output Urine Total 2600 ml 500 ml 800 ml # Voids 5 3 # Bowel Movements 1 6 (Taye Wilson MD R2) Result Diagram: 08/29/1752908/29/17529 Objective Remarks GENERAL: Obese male sitting up in bed watching TV currently in no acute distress. SKIN: Warm and dry. No rash. HEENT: Atraumatic, normocephalic with extraocular motions intact. No rhinorrhea. No visible lymphadenopathy or jugulovenous distension appreciated. CARDIOVASCULAR: Regular rate and rhythm without obvious murmurs, gallops, or rubs. 2+ pulses in all four extremities. RESPIRATORY: Diminished breath sounds at the bases bilaterally, otherwise clear to auscultation. No obvious CRW appreciated. No increased work of breathing at this time currently on 2 L nasal cannula. GASTROINTESTINAL: Abdomen soft, non-tender, nondistended with positive bowel sounds. No masses appreciated. MUSCULOSKELETAL: No cyanosis or edema. No calf tenderness. NEURO/PSYCH: Afocal. Awake, alert, and oriented x3. Normal speech and judgement. (Taye Wilson MD R2) A/P Assessment and Plan Mr. Sexton is a 57 y/o M presenting to the ED with acute worsening of shortness of breath found to have developing left sided pneumonia with anemia. Discharge Planning Pending respiratory improvement with GI recommendations (Taye Wilson MD R2) Attending Attestation Patient independently examined and case discussed with resident physician I have read the above note and agree with the assessment/plan as discussed with me I was involved in all medical decision making for this patient Mark Arevalo MD (Mark Arevalo MD) Problem List: (1) Sepsis ICD Codes: A41.9 - Sepsis, unspecified organism Status: Acute Plan: Sepsis criteria on admission with tachycardia and tachypnea associated with left lower lobe pneumonia as infectious source - Lactic acid 1.0 Blood cultures negative to date Urine negative for Legionella and Streptococcus influenza negative IV antibiotics with Rocephin and azithromycin to treat pneumonia (2) Left lower lobe pneumonia ICD Codes: J18.1 - Lobar pneumonia, unspecified organism Status: Acute Plan: CXR: Left perihilar airspace disease concerning for early infiltrate. IV antibiotics: Rocephin 1 g IV every 24 hours Azithromycin 500 mg p.o. daily Received Levaquin 750 mg 1 in the emergency department Blood cultures negative to date Urine antigens for Legionella pneumococcal negative Influenza negative Supplemental oxygen as needed to keep saturations greater than 93% Monitor on telemetry and continuous pulse oximeter Respiratory CPT, Acapella, and incentive spirometry ordered Tylenol as needed for fever DuoNeb every 6 hours scheduled Albuterol every 4 hours as needed for shortness of breath Tessalon Perles as needed for cough Lasix 40 mg IV given 1 (3) Upper GI bleed ICD Codes: K92.2 - Gastrointestinal hemorrhage, unspecified Status: Acute Plan: Hemoglobin 6.3 on arrival with positive Gastroccult and Hemoccult GI consulted, appreciate recommendations -EGD with colonoscopy completed, no acute findings -Recommended high-fiber diet, voiding nuts/seeds, and colonoscopy repeat 5 years Status post 2 units PRBC transfused on 08/28/17 Repeat hemoglobin 7.7 posttransfusion, hemoglobin continues to be stable Monitor with CBCs and transfuse as necessary Protonix 40 mg IV twice daily, transitioned to 40 mg p.o. daily (4) Anemia ICD Codes: D64.9 - Anemia, unspecified Status: Acute Plan: -Please see plan as above for upper GI bleed (5) Chest pain ICD Codes: R07.9 - Chest pain, unspecified Status: Acute Plan: UDS positive for cocaine and cannabinoids -Chest pain likely secondary to cocaine use -Patient strongly encouraged to avoid illicit drug use Troponins 0.022 with no EKG changes BNP 485 EKG: Atrial fibrillation with heart rate of 82 at time of exam. No acute ST or T-wave changes appreciated. (Per medical team read) Telemetry ordered (6) Atrial fibrillation ICD Codes: I48.91 - Unspecified atrial fibrillation Status: Chronic Plan: Patient with a history of atrial fibrillation Is on nifedipine and warfarin at home -Has not been taking his home warfarin, INR on arrival was 1.2 -Continue home nifedipine Anticoagulation being held given current GI bleeding (7) Headache ICD Codes: R51 - Headache Status: Chronic Plan: Patient with one-year history of headache consistent with tension headache Medications: -Continue home hydrocodone for pain (8) Chronic low back pain ICD Codes: M54.5 - Low back pain; G89.29 - Other chronic pain Status: Chronic Plan: -Continue home hydrocodone and gabapentin (9) Hypertension ICD Codes: I10 - Essential (primary) hypertension Status: Chronic Plan: Patient does report sleep study consistent with sleep apnea, however has not been evaluated for CPAP at this time. Medications: -Continue home lisinopril, nifedipine, and clonidine -Hydralazine 10 mg p.o. as needed for blood pressure greater than 180/100 (10) Cocaine abuse ICD Codes: F14.10 - Cocaine abuse, uncomplicated Status: Acute Plan: Likely the source of chest pain on resident patient -Counseled on cessation of cocaine use (11) Medical contraindication to deep vein thrombosis (DVT) prophylaxis ICD Codes: Z53.09 - Procedure and treatment not carried out because of other contraindication Status: Acute Plan: -Medical DVT prophylaxis contraindicated due to anemia/upper GI bleed -SCDs ordered (12) Nutrition, metabolism, and development symptoms ICD Codes: R63.8 - Other symptoms and signs concerning food and fluid intake Status: Acute Plan: -Fluids: Oral fluids as tolerated -Diet: Heart healthy as tolerated -Electrolytes: No acute abnormalities, continue to monitor -Prophylaxis: Zofran as needed for nausea/vomiting, albuterol as needed for shortness of breath/wheezing, Tessalon Perles as needed for cough, hydralazine as needed for blood pressure greater than 180/110 (Taye Wilson MD R2) Problem Qualifiers (1) Sepsis: Qualified Codes: A41.9 - Sepsis, unspecified organism (2) Left lower lobe pneumonia: Qualified Codes: J18.1 - Lobar pneumonia, unspecified organism (3) Anemia: Qualified Codes: D50.0 - Iron deficiency anemia secondary to blood loss ( chronic) (4) Chest pain: Qualified Codes: R07.1 - Chest pain on breathing (5) Atrial fibrillation: Qualified Codes: I48.1 - Persistent atrial fibrillation (6) Headache: Qualified Codes: G44.229 - Chronic tension-type headache, not intractable (7) Chronic low back pain: Qualified Codes: M54.5 - Low back pain; G89.29 - Other chronic pain (8) Hypertension: Qualified Codes: I10 - Essential (primary) hypertension Taye Wilson MD R2 Aug 29, 2017 16:54 Mark Arevalo MD Aug 29, 2017 17:16
[2017-08-29] MEDS: cefTRIAXone INJ 1,000 MG in SODIUM CHLORIDE 0.9% INJ 100 ML IV SCH (21:21)
[2017-08-30] VITALS (12 sets, daily range): BP systolic 118–136; BP diastolic 67–84; PULSE 70–112; RESP 17–20; TEMP 97.5–98.4; O2SAT 98–100
[2017-08-30] MEDS: RESP: ALBUTEROL 2.5 MG/IPRATROPIUM 0.5 MG NEB (SCH) INH ×4 (04:11→20:54)
[2017-08-30 05:34] LABS: HEMATOCRIT 28.7 % (39.0-51.0); HEMOGLOBIN 8.4 GM/DL (13.0-17.0); MEAN CELL VOLUME 73.8 FL (80.0-100.0); MEAN CORPUSCULAR HEMOGLOBIN 21.6 PG (27.0-34.0); MEAN PLATELET VOLUME 7.5 FL (7.0-11.0); PLATELET COUNT 281 TH/MM3 (150-450); RED BLOOD COUNT 3.88 MIL/MM3 (4.50-5.90); RED CELL DISTRIBUTION WIDTH 23.3 % (11.6-17.2); WHITE BLOOD COUNT 5.1 TH/MM3 (4.0-11.0)
[2017-08-30 05:46] LABS: MEAN CORPUSCULAR HGB CONC 29.2 % (32.0-36.0)
[2017-08-30 05:54] LABS: BICARBONATE 20.4 MEQ/L (21.0-32.0); CALCIUM 7.3 MG/DL (8.5-10.1); CREATININE 1.22 MG/DL (0.60-1.30)
[2017-08-30 06:18] LABS: CALCIUM-PROTEIN CORRECTED 7.7 MG/DL (8.5-10.1); TOTAL PROTEIN 6.4 GM/DL (6.4-8.2)
[2017-08-30] MEDS: AZITHROMYCIN 250 MG TAB PO SCH (08:29)
[2017-08-30] MEDS: LISINOPRIL 20 MG TAB PO SCH (08:29)
[2017-08-30] MEDS: PRAVASTATIN SOD 40 MG TAB PO SCH (08:29)
[2017-08-30] MEDS: PANTOPRAZOLE SOD 40 MG DELAYED RELEASE TAB PO SCH (08:29)
[2017-08-30] MEDS: cloNIDine HCL 0.2 MG TAB PO SCH ×2 (08:29→20:40)
[2017-08-30] MEDS: GABAPENTIN 300 MG CAP PO SCH ×3 (08:30→17:16)
[2017-08-30] MEDS: SODIUM CHLORIDE 0.9% FLUSH 10 ML FLUSH IV FLUSH SCH ×2 (08:30→20:41)
[2017-08-30] MEDS: NIFEdipine 90 MG SUSTAINED RELEASE TAB PO SCH (08:30)
[2017-08-30] MEDS: ACETAMINOPHEN/HYDROcodone 325 MG/10 MG TAB PO PRN ×3 (08:33→20:40)
--- NOTE | 2017-08-30 09:29 | HHI.FPPN ---
Subjective Remarks Patient was seen and evaluated this morning. He reports feeling better. His breathing is improved. He complains of some lower extremity pain secondary to edema. Patient denies chest pain, heart palpitations, nausea/vomiting, diarrhea and constipation. He denies black or bloody stool. GI findings as per procedure notes were discussed. Patient voiced understanding of findings. All questions were answered. (Hilary Montes MD R1) Objective Vitals Vital Signs Date Time Temp Pulse Resp B/P (MAP) Pulse Ox O2 Delivery O2 Flow Rate FiO2 08/30/17 08:23 99 Nasal Cannula 2.50 08/30/17 08:00 97.6 73 17 136/80 (98) 100 08/30/17 04:14 97.8 77 18 118/84 (95) 100 08/30/17 04:13 100 Nasal Cannula 2.50 08/29/17 23:37 97.6 81 18 119/71 (87) 100 08/29/17 23:24 16 08/29/17 21:15 100 Nasal Cannula 2.00 08/29/17 20:30 98.5 94 18 117/61 (79) 100 08/29/17 19:25 99 Nasal Cannula 2.50 08/29/17 17:55 Nasal Cannula 2.00 08/29/17 15:15 97.5 102 18 115/77 (90) 99 08/29/17 12:25 97.7 95 20 122/84 (97) 100 08/29/17 12:23 99 Nasal Cannula 2.50 08/29/17 12:15 Nasal Cannula 2.00 08/29/17 11:38 97.9 104 15 121/72 (88) 98 08/29/17 11:22 96.8 104 15 132/87 (102) 95 I/O 08/29/17 08/29/17 08/29/17 08/30/17 08/30/17 08/30/17 07:00 15:00 23:00 07:00 15:00 23:00 Intake Total 1239 ml 200 ml 360 ml 240 ml Output Total 500 ml 800 ml 500 ml 600 ml Balance 739 ml -600 ml -140 ml -360 ml Intake Oral 240 ml 360 ml 240 ml IV Total 999 ml Other 200 ml Output Urine Total 500 ml 800 ml 500 ml 600 ml # Voids 3 # Bowel Movements 6 0 (Hilary Montes MD R1) Result Diagram: 08/30/17 0450 08/30/17 0450 Imaging Last Impressions Chest X-Ray 08/27/17 0000 Signed Impressions: CONCLUSION: Left perihilar airspace disease concerning for early infiltratete. Objective Remarks GENERAL: Obese male sitting up in bed watching TV; in no acute distress. SKIN: Warm and dry. No rash. HEENT: Atraumatic, normocephalic with extraocular motions intact. No rhinorrhea. No visible lymphadenopathy or JVD appreciated. CARDIOVASCULAR: Regular rate and rhythm without obvious murmurs, gallops, or rubs. RESPIRATORY: Diminished breath sounds at the bases bilaterally, otherwise clear to auscultation. No increased work of breathing. On 2.5 L nasal cannula; O2 sat 100%. GASTROINTESTINAL: Positive bowel sounds. Abdomen soft, non-tender, nondistended. No masses appreciated. MUSCULOSKELETAL: No cyanosis or edema. No calf tenderness. NEURO/PSYCH: Awake, alert, and oriented x3. Normal speech and judgement. Procedures EGD and colonoscopy on 08/29. Medications and IVs Current Medications Medications (Trade) Dose Ordered Sig/Susie Route Start Time Stop Time Status Last Admin (Catapres) 0.2 mg BID PO 08/27/17 21:00 08/30/17 08:29 (Neurontin) 600 mg TID PO 08/28/17 09:00 08/30/17 08:30 (Mars 10-325 Mg) 1 tab Q6HR PRN PO 08/27/17 18:15 08/30/17 08:33 (Prinivil) 20 mg DAILY PO 08/28/17 09:00 08/30/17 08:29 (Procardia Xl) 90 mg DAILY PO 08/28/17 09:00 08/30/17 08:30 (NS Flush) 2 ml UNSCH PRN IV FLUSH 08/27/17 18:45 (NS Flush) 2 ml BID IV FLUSH 08/27/17 21:00 08/30/17 08:30 Ceftriaxone Sodium 1000 mg/ Sodium Chloride 100 ml @ 200 mls/hr Q24H IV 08/27/17 20:00 08/29/17 21:21 (Zithromax) 500 mg DAILY PO 08/28/17 09:00 08/30/17 08:29 (Tylenol) 650 mg Q4H PRN PO 08/27/17 18:45 (Zofran Odt) 4 mg Q6H PRN PO 08/27/17 20:00 (Duoneb Neb) 1 ampule Q6HR NEB INH 08/27/17 18:45 08/30/17 08:22 (Albuterol Neb) 2.5 mg Q4HR NEB PRN NEB 08/27/17 18:45 08/29/17 14:43 (Tessalon) 200 mg TID PRN PO 08/27/17 18:45 08/29/17 05:57 (Apresoline) 10 mg Q6HR PRN PO 08/27/17 19:15 (Pravachol) 40 mg DAILY PO 08/28/17 09:00 08/30/17 08:29 ([facility] [place] [facility]) ALL NURSING DEPARTME... UNSCH PRN .XX 08/29/17 11:13 08/30/17 11:12 (Protonix) 40 mg DAILY PO 08/30/17 09:00 08/30/17 08:29 (Hilary Montes MD R1) Urinary Catheter: No (Hilary Montes MD R1) Vascular Central Line Catheter: No (Hilary Montes MD R1) A/P Assessment and Plan Patient is a 57 year old male presenting to the ED with acute worsening of shortness of breath found to have developing left sided pneumonia with anemia. Discharge Planning Likely today. (Hilary Montes MD R1) Attending Attestation Patient examined independently and case discussed with resident physicians I have read the above note and agree with the assessment/plan as discussed with me I was involved in all medical decision making for this patient Mark Arevalo MD (Mark Arevalo MD) Problem List: (1) Sepsis ICD Codes: A41.9 - Sepsis, unspecified organism Status: Acute Plan: Patient met sepsis criteria with tachycardia and tachypnea, associated with left lower lobe pneumonia as infectious source. Lactic acid 1.0. Labs: * WBC 5.1. Microbiology: * Blood cultures 08/28: no growth to date. * Urine Legionella antigen: negative. * Urine Streptococcus pneumoniae: negative. Imaging: * Left perihilar airspace disease concerning for early infiltrates. Medications: * Azithromycin 500mg PO daily. * Ceftriaxone 1g IV q24hr. (2) Left lower lobe pneumonia ICD Codes: J18.1 - Lobar pneumonia, unspecified organism Status: Acute Plan: Patient with evidence of left lower lobe pneumonia on admission. * See Plan above Patient continues to require oxygen. Medications: * DuoNeb q6hr. * Albuterol q4hr PRN Shortness of Breath. * Tessalon 200mg TID PRN Cough. Orders: * Respiratory CPT, Acapella, and incentive spirometry. * Walk test prior to discharge. (3) Anemia ICD Codes: D64.9 - Anemia, unspecified Status: Acute Plan: On admission, Hgb 6.3 with positive Gastroccult and Hemoccult. S/p 2 units PRBC transfused on 08/28. Repeat hemoglobin 7.7 posttransfusion, hemoglobin continues to be stable. Medications: * Protonix 40 mg PO daily. Consults: * Gastroenterology: EGD and colonoscopy completed, no acute findings. Recommended high-fiber diet, voiding nuts/seeds, and colonoscopy repeat 5 years. (4) Chest pain ICD Codes: R07.9 - Chest pain, unspecified Status: Resolved Plan: On admission, patient reports chest pain; chest pain likely secondary to cocaine use. UDS positive for cocaine and cannabinoids. Patient strongly encouraged to avoid illicit drug use. Patient denies chest pain. Labs on admission: * Troponins 0.022. * BNP 485. Studies: * EKG: Atrial fibrillation with HR of 82 at time of exam. No acute ST or T- wave changes appreciated. (Per medical team read) Orders: * Telemetry. (5) Atrial fibrillation ICD Codes: I48.91 - Unspecified atrial fibrillation Status: Chronic Plan: Patient with a history of atrial fibrillation. On nifedipine and warfarin at home. Has not been taking his home warfarin, INR on arrival was 1.2. Medications: * Continue home nifedipine. * Anticoagulation being held given current GI bleeding. (6) Hypertension ICD Codes: I10 - Essential (primary) hypertension Status: Chronic Plan: Patient with history of hypertension. Patient reports sleep study consistent with sleep apnea; has not been evaluated for CPAP at this time. Medications: * Continue home lisinopril, nifedipine, and clonidine. * Hydralazine 10 mg PO as needed for blood pressure greater than 180/100. (7) Headache ICD Codes: R51 - Headache Status: Chronic Plan: Patient with one-year history of headache consistent with tension headache. Medications: * Continue home hydrocodone for pain. (8) Chronic low back pain ICD Codes: M54.5 - Low back pain; G89.29 - Other chronic pain Status: Chronic Plan: Patient with history of chronic low back pain. * Continue home hydrocodone and gabapentin. (9) Cocaine abuse ICD Codes: F14.10 - Cocaine abuse, uncomplicated Status: Acute Plan: Likely the source of chest pain. * Counseled on cessation of cocaine use. (10) Nutrition, metabolism, and development symptoms ICD Codes: R63.8 - Other symptoms and signs concerning food and fluid intake Status: Acute Plan: Fluids: * Oral fluids as tolerated Diet: * Heart healthy as tolerated Electrolytes: * Monitor and replete as necessary. (11) Medical contraindication to deep vein thrombosis (DVT) prophylaxis ICD Codes: Z53.09 - Procedure and treatment not carried out because of other contraindication Status: Acute Plan: Medical DVT prophylaxis contraindicated due to anemia/upper GI bleed. SCDs ordered. (Hilary Montes MD R1) Problem Qualifiers (1) Sepsis: Qualified Codes: A41.9 - Sepsis, unspecified organism (2) Left lower lobe pneumonia: Qualified Codes: J18.1 - Lobar pneumonia, unspecified organism (3) Anemia: Qualified Codes: D50.0 - Iron deficiency anemia secondary to blood loss ( chronic) (4) Chest pain: Qualified Codes: R07.1 - Chest pain on breathing (5) Atrial fibrillation: Qualified Codes: I48.1 - Persistent atrial fibrillation (6) Hypertension: Qualified Codes: I10 - Essential (primary) hypertension (7) Headache: Qualified Codes: G44.229 - Chronic tension-type headache, not intractable (8) Chronic low back pain: Qualified Codes: M54.5 - Low back pain; G89.29 - Other chronic pain Hilary Montes MD R1 Aug 30, 2017 09:29 Mark Arevalo MD Aug 30, 2017 15:13
--- NOTE | 2017-08-30 09:32 | PD.PN.STU ---
Subjective Remarks Patient found sitting up in bed, resting comfortably. No acute events overnight. He reports that he still remains SOB and has not been able to lie flat. He also endorses increased swelling of his lower extremities with associated discomfort. He continues to have a productive cough. He is agreeable to working with PT later today. Denies bloody stool or emesis. Denies chest pain, nausea, vomiting, constipation or diarrhea. Objective Vitals Vital Signs Date Time Temp Pulse Resp B/P (MAP) Pulse Ox O2 Delivery O2 Flow Rate FiO2 08/30/17 08:23 99 Nasal Cannula 2.50 08/30/17 08:00 97.6 73 17 136/80 (98) 100 08/30/17 04:14 97.8 77 18 118/84 (95) 100 08/30/17 04:13 100 Nasal Cannula 2.50 08/29/17 23:37 97.6 81 18 119/71 (87) 100 08/29/17 23:24 16 08/29/17 21:15 100 Nasal Cannula 2.00 08/29/17 20:30 98.5 94 18 117/61 (79) 100 08/29/17 19:25 99 Nasal Cannula 2.50 08/29/17 17:55 Nasal Cannula 2.00 08/29/17 15:15 97.5 102 18 115/77 (90) 99 08/29/17 12:25 97.7 95 20 122/84 (97) 100 08/29/17 12:23 99 Nasal Cannula 2.50 08/29/17 12:15 Nasal Cannula 2.00 08/29/17 11:38 97.9 104 15 121/72 (88) 98 08/29/17 11:22 96.8 104 15 132/87 (102) 95 I/O 08/29/17 08/29/17 08/29/17 08/30/17 08/30/17 08/30/17 07:00 15:00 23:00 07:00 15:00 23:00 Intake Total 1239 ml 200 ml 360 ml 240 ml Output Total 500 ml 800 ml 500 ml 600 ml Balance 739 ml -600 ml -140 ml -360 ml Intake Oral 240 ml 360 ml 240 ml IV Total 999 ml Other 200 ml Output Urine Total 500 ml 800 ml 500 ml 600 ml # Voids 3 # Bowel Movements 6 0 Result Diagram: 08/30/1744908/30/17449 Other Results General: Well-developed, obese male found sitting up in bed in no acute distress. Skin: Warm and dry. No rashes. HEENT: Atraumatic, normocephalic. No LAD or JVD. Cardiovascular: Regular rate and rhythm. No murmurs, gallops or rubs. Respiratory: Diminished breath sounds at bilateral lung bases. No crackles, rhonchi or fang. No increased work of breathing or use of respiratory muscles. Requiring 2L nasal cannula. Gastrointestinal: Abdomen soft, non-tender, and nondistended with positive bowel sounds in all 4 quadrants. No rebound tenderness or guarding. No masses or hepatosplenomegaly. Musculoskeletal: No cyanosis. Moderate pitting edema of bilateral lower extremities. Bilateral shins tender to palpation due to edema. No calf tenderness. Neuro: Awake and alert. Oriented x3. Normal speech and judgment. A/P Assessment and Plan Patient is a 57 y/o male who presented to ED with worsening shortness of breath found to have a left-sided lobar pneumonia anemia. Problem List: (1) Sepsis ICD Codes: A41.9 - Sepsis, unspecified organism Status: Acute Plan: Sepsis criteria on admission with tachycardia and tachypnea associated with left lower lobe pneumonia as infectious source - Lactic acid 1.0 (2) Left lower lobe pneumonia ICD Codes: J18.1 - Lobar pneumonia, unspecified organism Status: Acute Plan: CXR on admission showed left perihilar airspace disease concerning for early infiltrate. Patient continues to endorse a productive cough and shortness of breath, although improved from admission status. Studies -Blood cultures with no growth x 2 days -Urine antigens for Legionella and pneumococcal negative -Influenza negative Medications -Rocephin 1 g IV every 24 hours -Azithromycin 500 mg p.o. daily -Will plan to discharge on Levaquin 750mg PO daily x 7 days to complete antibiotic course. Supplemental oxygen as needed to keep saturations greater than 93% Monitor on telemetry and continuous pulse oximeter Respiratory CPT, Acapella, and incentive spirometry ordered Tylenol as needed for fever DuoNeb every 6 hours scheduled Albuterol every 4 hours as needed for shortness of breath Tessalon Perles as needed for cough Lasix 40 mg IV given 1 (3) Upper GI bleed ICD Codes: K92.2 - Gastrointestinal hemorrhage, unspecified Status: Acute Plan: ] Hb 6.3 on arrival (6/) with positive Gastroccult and Hemoccult (08/30) Hb 8.4 GI consulted with recommendations for EGD and colonoscopy -EGD showed medium sized hiatal hernia -Colonoscopy showed diverticulum throughout the entire colon -Recommended high-fiber diet, avoiding nuts/seeds, and repeat colonoscopy in 5 years Monitor with CBCs and transfuse as necessary Protonix 40 mg IV twice daily, transitioned to 40 mg p.o. daily (4) Anemia ICD Codes: D64.9 - Anemia, unspecified Status: Acute Plan: -Please see plan as above for upper GI bleed (5) Chest pain ICD Codes: R07.9 - Chest pain, unspecified Status: Acute Plan: UDS positive for cocaine and cannabinoids -Chest pain likely secondary to cocaine use -Patient strongly encouraged to avoid illicit drug use Troponins 0.022 with no EKG changes BNP 485 EKG: Atrial fibrillation with heart rate of 82 at time of exam. No acute ST or T-wave changes appreciated. (Per medical team read) (6) Atrial fibrillation ICD Codes: I48.91 - Unspecified atrial fibrillation Status: Chronic Plan: Patient with a history of atrial fibrillation Is on nifedipine and warfarin at home -Has not been taking his home warfarin, INR on arrival was 1.2 -Continue home nifedipine Anticoagulation being held given current GI bleeding (7) Headache ICD Codes: R51 - Headache Status: Chronic Plan: Patient with one-year history of headache consistent with tension headache Medications: -Continue home hydrocodone for pain (8) Chronic low back pain ICD Codes: M54.5 - Low back pain; G89.29 - Other chronic pain Status: Chronic Plan: -Continue home hydrocodone and gabapentin (9) Hypertension ICD Codes: I10 - Essential (primary) hypertension Status: Chronic Plan: Patient does report sleep study consistent with sleep apnea, however has not been evaluated for CPAP at this time. Medications: -Continue home lisinopril, nifedipine, and clonidine -Hydralazine 10 mg p.o. as needed for blood pressure greater than 180/100 (10) Cocaine abuse ICD Codes: F14.10 - Cocaine abuse, uncomplicated Status: Acute Plan: Likely the source of chest pain on admission -Counseled on cessation of cocaine use (11) Medical contraindication to deep vein thrombosis (DVT) prophylaxis ICD Codes: Z53.09 - Procedure and treatment not carried out because of other contraindication Status: Acute Plan: -Medical DVT prophylaxis contraindicated due to anemia/upper GI bleed -SCDs ordered (12) Nutrition, metabolism, and development symptoms ICD Codes: R63.8 - Other symptoms and signs concerning food and fluid intake Status: Acute Plan: -Fluids: Oral fluids as tolerated -Diet: Heart healthy as tolerated -Electrolytes: No acute abnormalities, continue to monitor -Prophylaxis: Zofran as needed for nausea/vomiting, albuterol as needed for shortness of breath/wheezing, Tessalon Perles as needed for cough, hydralazine as needed for blood pressure greater than 180/110 Discharge Planning Patient to complete walk test with PT. Plan to discharge on Levaquin 750mg PO daily x 7 days to complete antibiotic course. Possible discharge today. Maria Elena Magallon M3 Aug 30, 2017 09:32
[2017-08-30] MEDS ORDERED: PANT40TA3 PO (11:22)
--- NOTE | 2017-08-30 11:27 | HHI.DCPOC ---
Discharge Care Plan Diagnosis: (1) Sepsis (2) Anemia (3) Left lower lobe pneumonia Goals to Promote Your Health * To prevent worsening of your condition and complications * To maintain your health at the optimal level Directions to Meet Your Goals Take your medications as prescribed Follow your dietary instruction Follow activity as directed Keep your appointments as scheduled Take your immunizations and boosters as scheduled If your symptoms worsen call your PCP, if no PCP go to Urgent Care Center or Emergency Room Smoking is Dangerous to Your Health. Avoid second hand smoke Call the 24-hour hour crisis hotline for domestic abuse at Taye Wilson MD R2 Aug 30, 2017 11:27
[2017-08-30] MEDS ORDERED: POTASSIUM CHLORIDE 10 MEQ CONTROLLED RELEASE TAB PO ONE (11:45)
[2017-08-30] MEDS: BENZONATATE 100 MG CAP PO PRN (14:40)
[2017-08-30] MEDS ORDERED: LEVA750T9 PO (14:53)
[2017-08-30] MEDS ORDERED: OXYGENTANK NAS.CANULA ×2 (14:53→15:51)
[2017-08-30] MEDS ORDERED: LEVO500T8 PO (14:55)
[2017-08-30] MEDS ORDERED: FERR325T18 PO (15:08)
--- NOTE | 2017-08-30 15:18 | HHI.GIFU ---
Subjective Remarks Pt denies nausea, vomiting, abdominal pain Reports 1 BM since GI procedures yesterday, formed, denies blood in stool Tolerating PO (Marie Hanks) Objective Vitals I&O Vital Signs Date Time Temp Pulse Resp B/P (MAP) Pulse Ox O2 Delivery O2 Flow Rate FiO2 08/30/17 12:00 97.5 70 17 120/67 (84) 100 08/30/17 10:31 4.00 08/30/17 09:10 Nasal Cannula 2.00 08/30/17 08:23 99 Nasal Cannula 2.50 08/30/17 08:03 Nasal Cannula 2.50 08/30/17 08:03 75 08/30/17 08:00 97.6 73 17 136/80 (98) 100 08/30/17 04:14 97.8 77 18 118/84 (95) 100 08/30/17 04:13 100 Nasal Cannula 2.50 08/29/17 23:37 97.6 81 18 119/71 (87) 100 08/29/17 23:24 16 08/29/17 21:15 100 Nasal Cannula 2.00 08/29/17 20:30 98.5 94 18 117/61 (79) 100 08/29/17 19:25 99 Nasal Cannula 2.50 08/29/17 17:55 Nasal Cannula 2.00 08/29/17 15:15 97.5 102 18 115/77 (90) 99 I/O 08/29/17 08/29/17 08/29/17 08/30/17 08/30/17 08/30/17 07:00 15:00 23:00 07:00 15:00 23:00 Intake Total 1239 ml 200 ml 360 ml 240 ml Output Total 500 ml 800 ml 500 ml 600 ml Balance 739 ml -600 ml -140 ml -360 ml Intake Oral 240 ml 360 ml 240 ml IV Total 999 ml Other 200 ml Output Urine Total 500 ml 800 ml 500 ml 600 ml # Voids 3 # Bowel Movements 6 0 Laboratory Laboratory Tests Test 08/30/17 04:50 White Blood Count 5.1 Red Blood Count 3.88 Hemoglobin 8.4 Hematocrit 28.7 Mean Corpuscular Volume 73.8 Mean Corpuscular Hemoglobin 21.6 Mean Corpuscular Hemoglobin Concent 29.2 Red Cell Distribution Width 23.3 Platelet Count 281 Mean Platelet Volume 7.5 Blood Urea Nitrogen 12 Creatinine 1.22 Random Glucose 83 Total Protein 6.4 Calcium Level 7.3 Sodium Level 141 Potassium Level 3.3 Chloride Level 108 Carbon Dioxide Level 20.4 Anion Gap 13 Estimat Glomerular Filtration Rate 75 Protein Corrected Calcium 7.7 Date/Time Source Procedure Growth Status 08/27/17 14:50 Blood Line Aerobic Blood Culture - Preliminary NO GROWTH IN 3 DAYS Resulted 08/27/17 14:50 Blood Line Anaerobic Blood Culture - Preliminary NO GROWTH IN 3 DAYS Resulted 08/27/17 16:00 Urine Clean Catch Legionella Antigen - Final PRESUMPTIVE NEGATIVE FOR LEGIONELLA P... Complete 08/27/17 16:00 Urine Clean Catch Streptococcus pneumoniae Antigen (M - Final PRESUMPTIVE NEGATIVE FOR STREPTOCOCCU... Complete Imaging Last Impressions Chest X-Ray 08/27/17 0000 Signed Impressions: CONCLUSION: Left perihilar airspace disease concerning for early infiltratete. Physical Exam HEENT: Normocephalic; atraumatic CHEST: Shallow respirations. CARDIAC: Irregular rate and rhythm ABDOMEN: Obese, soft, nontender, bowel sounds active SKIN: Normal; no rash; no jaundice. [employer]: Alert and oriented times three. (Marie Hanks) Assessment and Plan Plan Assessment: - Anemia with reports of hematemesis and hematochezia Pt reports 2 episodes of emesis early yesterday morning, the first with blood the second without. Also reports one episode of blood in his stool this morning, states red blood. Denies acid reflux, heartburn, abdominal pain, unintentional weight loss. Previously seen by our service for anemia: Colonoscopy --> Ulcer IC valve, internal and external hemorrhoids. Pathology (ileocecal valve) colonic mucosa with a benign lymphoid aggregate. EGD --> Gastritis, normal duodenum, midesophagus predominant vein, hiatal hernia. Pathology (antrum) mildly active chronic antral gastritis with intestinal metaplasia. Of note, on Coumadin for a-fib but states he has forgotten to take it for the past couple days. INR-1.2 Also has been taking Ibuprofen BID for the past month for headaches. H/H 6.3/21.7 on admission now S/P 2 U PRBCs currently 7.3/25.5 (08/30) Pt denies any nausea, vomiting, abdominal pain. One BM since GI procedures yesterday, states formed with no blood in stool. H/H trending up, no transfusion for two days EGD--> Medium sized hiatal hernia otherwise normal esophagus. Mucosa of the stomach appeared normal. Normal duodenal mucosa in the bulb and second portion of the duodenum and 3rd part of the duodenum Colonoscopy --> Diverticulum throughout the entire examined colon. Plan: Monitor H/H OK to restart Coumadin from a GI perspective Our service will sign off, please reconsult as needed Have pt follow up with GI after DC Pt has been seen and examined by myself and Dr. Tadeo and this note is written on his behalf (Marie Hanks) Physician Comments Agree with above assessment and plan. Okay to resume anticoagulant Please notify us if needed again. (Gio Tadeo MD) Marie Hanks Aug 30, 2017 15:18 Gio Tadeo MD Aug 31, 2017 09:40
[2017-08-30] MEDS: cefTRIAXone INJ 1,000 MG in SODIUM CHLORIDE 0.9% INJ 100 ML IV SCH (20:40)
[2017-08-31] VITALS (11 sets, daily range): BP systolic 107–149; BP diastolic 63–87; PULSE 55–87; RESP 16–20; TEMP 97.3–98.1; O2SAT 10–100
[2017-08-31] MEDS: ACETAMINOPHEN/HYDROcodone 325 MG/10 MG TAB PO PRN ×4 (02:43→20:41)
[2017-08-31] MEDS: RESP: ALBUTEROL 2.5 MG/IPRATROPIUM 0.5 MG NEB (SCH) INH ×3 (03:21→15:50)
[2017-08-31] MEDS: RESP: ALBUTEROL 2.5 MG/3 ML NEB (PRN) NEB ×2 (06:04→21:05)
[2017-08-31 06:15] LABS: HEMATOCRIT 27.3 % (39.0-51.0); HEMOGLOBIN 7.9 GM/DL (13.0-17.0); MEAN CELL VOLUME 75.1 FL (80.0-100.0); MEAN CORPUSCULAR HEMOGLOBIN 21.8 PG (27.0-34.0); MEAN PLATELET VOLUME 8.3 FL (7.0-11.0); PLATELET COUNT 295 TH/MM3 (150-450); RED BLOOD COUNT 3.63 MIL/MM3 (4.50-5.90); RED CELL DISTRIBUTION WIDTH 24.3 % (11.6-17.2); WHITE BLOOD COUNT 5.1 TH/MM3 (4.0-11.0)
[2017-08-31 06:17] LABS: MEAN CORPUSCULAR HGB CONC 29.1 % (32.0-36.0)
[2017-08-31 06:40] LABS: BICARBONATE 23.1 MEQ/L (21.0-32.0); CREATININE 1.2 MG/DL (0.60-1.30)
[2017-08-31] MEDS: SODIUM CHLORIDE 0.9% FLUSH 10 ML FLUSH IV FLUSH SCH ×2 (08:22→20:43)
[2017-08-31] MEDS: LISINOPRIL 20 MG TAB PO SCH (08:23)
[2017-08-31] MEDS: AZITHROMYCIN 250 MG TAB PO SCH (08:23)
[2017-08-31] MEDS: GABAPENTIN 300 MG CAP PO SCH ×3 (08:23→18:02)
[2017-08-31] MEDS: NIFEdipine 90 MG SUSTAINED RELEASE TAB PO SCH (08:23)
[2017-08-31] MEDS: PANTOPRAZOLE SOD 40 MG DELAYED RELEASE TAB PO SCH (08:23)
[2017-08-31] MEDS: cloNIDine HCL 0.2 MG TAB PO SCH ×2 (08:23→20:41)
[2017-08-31] MEDS: PRAVASTATIN SOD 40 MG TAB PO SCH (08:23)
[2017-08-31] MEDS: BENZONATATE 100 MG CAP PO PRN ×2 (08:27→20:42)
[2017-08-31] MEDS ORDERED: BENZ100 PO (10:07)
--- NOTE | 2017-08-31 10:14 | HHI.FPPN ---
Subjective Remarks Patient was seen and evaluated this morning. He reports shortness of breath associated with exertion. He asks for medication for his cough upon discharge. Patient denies chest pain, heart palpitations, nausea/vomiting, diarrhea and constipation. Cocaine use and its effect specifically on patient's heart discussed at length. Patient voices understanding. All questions were answered. (Hilary Montes MD R1) Objective Vitals Vital Signs Date Time Temp Pulse Resp B/P (MAP) Pulse Ox O2 Delivery O2 Flow Rate FiO2 08/31/17 09:34 Nasal Cannula 2.00 08/31/17 08:00 98.0 69 16 121/83 (96) 99 08/31/17 04:00 97.4 74 20 136/64 (88) 100 08/31/17 03:46 55 08/31/17 00:00 97.4 87 20 135/76 (95) 10 08/30/17 23:57 76 08/30/17 20:55 98 Nasal Cannula 2.00 08/30/17 20:00 98.4 75 20 121/69 (86) 100 08/30/17 20:00 Nasal Cannula 2.00 08/30/17 19:51 103 08/30/17 16:06 74 08/30/17 16:00 97.5 73 18 118/69 (85) 100 08/30/17 12:00 97.5 70 17 120/67 (84) 100 08/30/17 12:00 112 08/30/17 10:31 4.00 I/O 08/30/17 08/30/17 08/30/17 08/31/17 08/31/17 08/31/17 07:00 15:00 23:00 07:00 15:00 23:00 Intake Total 240 ml 1320 ml 20 ml Output Total 600 ml 1200 ml 1100 ml Balance -360 ml 120 ml -1080 ml Intake Oral 240 ml 1320 ml 20 ml Output Urine Total 600 ml 1200 ml 1100 ml # Bowel Movements 0 1 (Hilary Montes MD R1) Result Diagram: 08/31/17 0520 08/31/17 0520 Imaging Last Impressions Chest X-Ray 08/27/17 0000 Signed Impressions: CONCLUSION: Left perihilar airspace disease concerning for early infiltratete. Objective Remarks GENERAL: Obese male sitting up in bed watching TV; in no acute distress. SKIN: Warm and dry. No rash. HEENT: Atraumatic, normocephalic with extraocular motions intact. No rhinorrhea. No visible lymphadenopathy or JVD appreciated. CARDIOVASCULAR: Regular rate and rhythm without obvious murmurs, gallops, or rubs. RESPIRATORY: Diminished breath sounds at the bases bilaterally, otherwise clear to auscultation. No increased work of breathing. On 2 L nasal cannula; O2 sat 100%. GASTROINTESTINAL: Positive bowel sounds. Abdomen soft, non-tender, nondistended. No masses appreciated. MUSCULOSKELETAL: Extensive lower extremity edema bilaterally. No cyanosis. No calf tenderness. NEURO/PSYCH: Awake, alert, and oriented x3. Normal speech and judgement. Procedures EGD and colonoscopy on 08/29. Medications and IVs Current Medications Medications (Trade) Dose Ordered Sig/Susie Route Start Time Stop Time Status Last Admin (Catapres) 0.2 mg BID PO 08/27/17 21:00 08/31/17 08:23 (Neurontin) 600 mg TID PO 08/28/17 09:00 08/31/17 08:23 ([place] 10-325 Mg) 1 tab Q6HR PRN PO 08/27/17 18:15 08/31/17 08:41 (Prinivil) 20 mg DAILY PO 08/28/17 09:00 08/31/17 08:23 (Procardia Xl) 90 mg DAILY PO 08/28/17 09:00 08/31/17 08:23 (NS Flush) 2 ml UNSCH PRN IV FLUSH 08/27/17 18:45 (NS Flush) 2 ml BID IV FLUSH 08/27/17 21:00 08/31/17 08:22 Ceftriaxone Sodium 1000 mg/ Sodium Chloride 100 ml @ 200 mls/hr Q24H IV 08/27/17 20:00 08/30/17 20:40 (Zithromax) 500 mg DAILY PO 08/28/17 09:00 08/31/17 08:23 (Tylenol) 650 mg Q4H PRN PO 08/27/17 18:45 (Zofran Odt) 4 mg Q6H PRN PO 08/27/17 20:00 (Duoneb Neb) 1 ampule Q6HR NEB INH 08/27/17 18:45 08/31/17 09:50 (Albuterol Neb) 2.5 mg Q4HR NEB PRN NEB 08/27/17 18:45 08/31/17 06:04 (Tessalon) 200 mg TID PRN PO 08/27/17 18:45 08/31/17 08:27 (Apresoline) 10 mg Q6HR PRN PO 08/27/17 19:15 (Pravachol) 40 mg DAILY PO 08/28/17 09:00 08/31/17 08:23 (Protonix) 40 mg DAILY PO 08/30/17 09:00 08/31/17 08:23 (Hilary Montes MD R1) Urinary Catheter: No (Hilary Montes MD R1) Vascular Central Line Catheter: No (Hilary Montes MD R1) A/P Assessment and Plan Patient is a 57 year old male presenting to the ED with acute worsening of shortness of breath found to have developing left sided pneumonia with anemia. Discharge Planning Likely today. (Hilary Montes MD R1) Problem List: (1) Sepsis ICD Codes: A41.9 - Sepsis, unspecified organism Status: Resolved Plan: Resolved as of 08/30. On admission, patient met sepsis criteria with tachycardia and tachypnea, associated with left lower lobe pneumonia as infectious source. Lactic acid 1.0. Labs: * WBC 08/31: 5.1. Microbiology: * Blood cultures 08/28: no growth to date. * Urine Legionella antigen: negative. * Urine Streptococcus pneumoniae: negative. Imaging: * Left perihilar airspace disease concerning for early infiltrates. Medications: * Azithromycin 500mg PO daily. * Ceftriaxone 1g IV q24hr. * To be discharged on Levofloxacin. (2) Left lower lobe pneumonia ICD Codes: J18.1 - Lobar pneumonia, unspecified organism Status: Acute Plan: Patient with evidence of left lower lobe pneumonia on admission. * See Plan above Patient continues to require oxygen. Based on walk test results, patient will require 4L O2 at home upon discharge. Medications: * DuoNeb q6hr. * Albuterol q4hr PRN Shortness of Breath. * Tessalon 200mg TID PRN Cough. Orders: * Respiratory CPT, Acapella, and incentive spirometry. (3) Anemia ICD Codes: D64.9 - Anemia, unspecified Status: Acute Plan: On admission, Hgb 6.3 with positive Gastroccult and Hemoccult. S/p 2 units PRBC transfused on 08/28. Repeat hemoglobin 7.7 posttransfusion, hemoglobin continues to be stable. Medications: * Protonix 40 mg PO daily. Consults: * Gastroenterology: EGD and colonoscopy completed, no acute findings. Recommended high-fiber diet, voiding nuts/seeds, and colonoscopy repeat 5 years. (4) Chest pain ICD Codes: R07.9 - Chest pain, unspecified Status: Resolved Plan: On admission, patient reports chest pain; chest pain likely secondary to cocaine use. UDS positive for cocaine and cannabinoids. Patient strongly encouraged to avoid illicit drug use. Patient denies chest pain. Labs on admission: * Troponins 0.022. * BNP 485. Studies: * EKG: Atrial fibrillation with HR of 82 at time of exam. No acute ST or T- wave changes appreciated. (Per medical team read) * ECHO 04/05: Normal left ventricular size. Wall thickness is measured at the upper limits of normal. The left ventricular systolic function is low normal with an estimated ejection fraction in the range of 50-55%. Mild mitral valve regurgitation. There is mild tricuspid valve regurgitation. There is estimated moderate pulmonary hypertension present (60 mmHg). Orders: * Telemetry. (5) Atrial fibrillation ICD Codes: I48.91 - Unspecified atrial fibrillation Status: Chronic Plan: Patient with a history of atrial fibrillation. On nifedipine and warfarin at home. Has not been taking his home warfarin, INR on arrival was 1.2. Medications: * Continue home nifedipine. * Warfarin to be restarted upon discharge. (6) Hypertension ICD Codes: I10 - Essential (primary) hypertension Status: Chronic Plan: Patient with history of hypertension. Patient reports sleep study consistent with sleep apnea; has not been evaluated for CPAP at this time. Medications: * Continue home lisinopril, nifedipine, and clonidine. * Hydralazine 10 mg PO as needed for blood pressure greater than 180/100. (7) Headache ICD Codes: R51 - Headache Status: Chronic Plan: Patient with one-year history of headache consistent with tension headache. Medications: * Continue home hydrocodone for pain. (8) Chronic low back pain ICD Codes: M54.5 - Low back pain; G89.29 - Other chronic pain Status: Chronic Plan: Patient with history of chronic low back pain. * Continue home hydrocodone and gabapentin. (9) Cocaine abuse ICD Codes: F14.10 - Cocaine abuse, uncomplicated Status: Acute Plan: Likely the source of chest pain. * Counseled on cessation of cocaine use. (10) Nutrition, metabolism, and development symptoms ICD Codes: R63.8 - Other symptoms and signs concerning food and fluid intake Status: Acute Plan: Fluids: * Oral fluids as tolerated Diet: * Heart healthy as tolerated Electrolytes: * Monitor and replete as necessary. (11) Medical contraindication to deep vein thrombosis (DVT) prophylaxis ICD Codes: Z53.09 - Procedure and treatment not carried out because of other contraindication Status: Acute Plan: SCDs. (Hilary Montes MD R1) Problem List: (1) Sepsis ICD Codes: A41.9 - Sepsis, unspecified organism Status: Resolved Plan: Resolved as of 08/30. On admission, patient met sepsis criteria with tachycardia and tachypnea, associated with left lower lobe pneumonia as infectious source. Lactic acid 1.0. Labs: * WBC 08/31: 5.1. Microbiology: * Blood cultures 08/28: no growth to date. * Urine Legionella antigen: negative. * Urine Streptococcus pneumoniae: negative. Imaging: * Left perihilar airspace disease concerning for early infiltrates. Medications: * Azithromycin 500mg PO daily. * Ceftriaxone 1g IV q24hr. * To be discharged on Levofloxacin. (2) Left lower lobe pneumonia ICD Codes: J18.1 - Lobar pneumonia, unspecified organism Status: Acute Plan: Patient with evidence of left lower lobe pneumonia on admission. * See Plan above Patient continues to require oxygen. Based on walk test results, patient will require 4L O2 at home upon discharge. Medications: * DuoNeb q6hr. * Albuterol q4hr PRN Shortness of Breath. * Tessalon 200mg TID PRN Cough. Orders: * Respiratory CPT, Acapella, and incentive spirometry. (3) Anemia ICD Codes: D64.9 - Anemia, unspecified Status: Acute Plan: On admission, Hgb 6.3 with positive Gastroccult and Hemoccult. S/p 2 units PRBC transfused on 08/28. Repeat hemoglobin 7.7 posttransfusion, hemoglobin continues to be stable. Medications: * Protonix 40 mg PO daily. Consults: * Gastroenterology: EGD and colonoscopy completed, no acute findings. Recommended high-fiber diet, voiding nuts/seeds, and colonoscopy repeat 5 years. (4) Chest pain ICD Codes: R07.9 - Chest pain, unspecified Status: Resolved Plan: On admission, patient reports chest pain; chest pain likely secondary to cocaine use. UDS positive for cocaine and cannabinoids. Patient strongly encouraged to avoid illicit drug use. Patient denies chest pain. Labs on admission: * Troponins 0.022. * BNP 485. Studies: * EKG: Atrial fibrillation with HR of 82 at time of exam. No acute ST or T- wave changes appreciated. (Per medical team read) * ECHO 04/05: Normal left ventricular size. Wall thickness is measured at the upper limits of normal. The left ventricular systolic function is low normal with an estimated ejection fraction in the range of 50-55%. Mild mitral valve regurgitation. There is mild tricuspid valve regurgitation. There is estimated moderate pulmonary hypertension present (60 mmHg). Orders: * Telemetry. (5) Atrial fibrillation ICD Codes: I48.91 - Unspecified atrial fibrillation Status: Chronic Plan: Patient with a history of atrial fibrillation. On nifedipine and warfarin at home. Has not been taking his home warfarin, INR on arrival was 1.2. Medications: * Continue home nifedipine. * Warfarin to be restarted upon discharge. (6) Hypertension ICD Codes: I10 - Essential (primary) hypertension Status: Chronic Plan: Patient with history of hypertension. Patient reports sleep study consistent with sleep apnea; has not been evaluated for CPAP at this time. Medications: * Continue home lisinopril, nifedipine, and clonidine. * Hydralazine 10 mg PO as needed for blood pressure greater than 180/100. (7) Headache ICD Codes: R51 - Headache Status: Chronic Plan: Patient with one-year history of headache consistent with tension headache. Medications: * Continue home hydrocodone for pain. (8) Chronic low back pain ICD Codes: M54.5 - Low back pain; G89.29 - Other chronic pain Status: Chronic Plan: Patient with history of chronic low back pain. * Continue home hydrocodone and gabapentin. (9) Cocaine abuse ICD Codes: F14.10 - Cocaine abuse, uncomplicated Status: Acute Plan: Likely the source of chest pain. * Counseled on cessation of cocaine use. (10) Nutrition, metabolism, and development symptoms ICD Codes: R63.8 - Other symptoms and signs concerning food and fluid intake Status: Acute Plan: Fluids: * Oral fluids as tolerated Diet: * Heart healthy as tolerated Electrolytes: * Monitor and replete as necessary. (11) Medical contraindication to deep vein thrombosis (DVT) prophylaxis ICD Codes: Z53.09 - Procedure and treatment not carried out because of other contraindication Status: Acute Plan: SCDs. See the residents documentation for details. I saw and evaluated the patient regarding the [place] portions of this evaluation and agree with the residents findings and plans as written. Parts of this note were created using [employer] recognition software program. While efforts were made to correct any mistakes made by this software, some mistakes, errors, and omissions may remain in the final note that were not caught when the note was originally created. Plan of care was discussed and agreed upon with the patient as specifically documented in the above note. An opportunity to ask questions with explanation was provided. Patient voiced understanding on all information reviewed and discussed. (Giacomo Cruz MD) Problem Qualifiers (1) Sepsis: Qualified Codes: A41.9 - Sepsis, unspecified organism (2) Left lower lobe pneumonia: Qualified Codes: J18.1 - Lobar pneumonia, unspecified organism (3) Anemia: Qualified Codes: D50.0 - Iron deficiency anemia secondary to blood loss ( chronic) (4) Chest pain: Qualified Codes: R07.1 - Chest pain on breathing (5) Atrial fibrillation: Qualified Codes: I48.1 - Persistent atrial fibrillation (6) Hypertension: Qualified Codes: I10 - Essential (primary) hypertension (7) Headache: Qualified Codes: G44.229 - Chronic tension-type headache, not intractable (8) Chronic low back pain: Qualified Codes: M54.5 - Low back pain; G89.29 - Other chronic pain Hilary Montes MD R1 Aug 31, 2017 10:14 Giacomo Cruz MD Sep 03, 2017 10:53
[2017-08-31] MEDS: cefTRIAXone INJ 1,000 MG in SODIUM CHLORIDE 0.9% INJ 100 ML IV SCH (20:42)
[2017-09-01] VITALS (7 sets, daily range): BP systolic 122–145; BP diastolic 64–78; PULSE 56–79; RESP 17–18; TEMP 97.6–98.4; O2SAT 96–100
[2017-09-01] MEDS: ACETAMINOPHEN/HYDROcodone 325 MG/10 MG TAB PO PRN ×2 (04:16→11:00)
[2017-09-01] MEDS: RESP: ALBUTEROL 2.5 MG/3 ML NEB (PRN) NEB ×2 (04:36→10:10)
[2017-09-01] MEDS: BENZONATATE 100 MG CAP PO PRN (05:07)
[2017-09-01 08:04] LABS: HEMATOCRIT 27.4 % (39.0-51.0); HEMOGLOBIN 7.9 GM/DL (13.0-17.0); MEAN PLATELET VOLUME 7.7 FL (7.0-11.0); PLATELET COUNT 341 TH/MM3 (150-450); RED CELL DISTRIBUTION WIDTH 24.8 % (11.6-17.2); WHITE BLOOD COUNT 5.9 TH/MM3 (4.0-11.0)
[2017-09-01 08:25] LABS: BICARBONATE 22.2 MEQ/L (21.0-32.0); CALCIUM 8.4 MG/DL (8.5-10.1); CREATININE 1.21 MG/DL (0.60-1.30)
[2017-09-01] MEDS: SODIUM CHLORIDE 0.9% FLUSH 10 ML FLUSH IV FLUSH SCH (08:49)
[2017-09-01] MEDS: PRAVASTATIN SOD 40 MG TAB PO SCH (08:49)
[2017-09-01] MEDS: GABAPENTIN 300 MG CAP PO SCH (08:49)
[2017-09-01] MEDS: AZITHROMYCIN 250 MG TAB PO SCH (08:49)
[2017-09-01] MEDS: LISINOPRIL 20 MG TAB PO SCH (08:49)
[2017-09-01] MEDS: PANTOPRAZOLE SOD 40 MG DELAYED RELEASE TAB PO SCH (08:49)
[2017-09-01] MEDS: cloNIDine HCL 0.2 MG TAB PO SCH (08:49)
[2017-09-01] MEDS: NIFEdipine 90 MG SUSTAINED RELEASE TAB PO SCH (08:49)
--- NOTE | 2017-09-01 11:11 | HHI.FPPN ---
Subjective Remarks Patient was seen and evaluated this morning. He denies any overnight events. Patient denies chest pain, heart palpitations, shortness of breath, nausea/ vomiting, diarrhea and constipation. All questions were answered. (Hilary Montes MD R1) Objective Vitals Vital Signs Date Time Temp Pulse Resp B/P (MAP) Pulse Ox O2 Delivery O2 Flow Rate FiO2 09/01/17 10:02 98 Nasal Cannula 2.00 09/01/17 08:00 98.2 79 18 145/73 (97) 98 09/01/17 04:36 100 Nasal Cannula 2.00 09/01/17 04:14 Nasal Cannula 2.00 09/01/17 04:00 98.4 69 17 135/64 (87) 98 09/01/17 03:42 56 09/01/17 00:00 98.4 69 17 122/66 (84) 98 08/31/17 20:52 Nasal Cannula 2.00 08/31/17 20:00 97.7 85 17 149/87 (107) 98 08/31/17 16:05 99 Nasal Cannula 2.00 08/31/17 16:00 98.1 63 17 107/63 (78) 100 08/31/17 16:00 58 08/31/17 12:00 97.3 82 17 113/79 (90) 98 08/31/17 11:58 72 I/O 08/31/17 08/31/17 08/31/17 09/01/17 09/01/17 09/01/17 07:00 15:00 23:00 07:00 15:00 23:00 Intake Total 20 ml 1400 ml 1200 ml Output Total 1100 ml 1325 ml 2275 ml Balance -1080 ml 75 ml -1075 ml Intake Oral 20 ml 1300 ml 1200 ml IV Total 100 ml Output Urine Total 1100 ml 1325 ml 2275 ml # Bowel Movements 0 (Hilary Montes MD R1) Result Diagram: 09/01/17 0645 09/01/17 0645 Imaging Last Impressions Chest X-Ray 08/27/17 0000 Signed Impressions: CONCLUSION: Left perihilar airspace disease concerning for early infiltratete. Objective Remarks GENERAL: Obese male laying in bed watching TV; in no acute distress. SKIN: Warm and dry. No rash. HEENT: Atraumatic, normocephalic with extraocular motions intact. No rhinorrhea. No visible lymphadenopathy or JVD appreciated. CARDIOVASCULAR: Regular rate and rhythm without obvious murmurs, gallops, or rubs. RESPIRATORY: Diminished breath sounds at the bases bilaterally, otherwise clear to auscultation. No increased work of breathing. On 2 L nasal cannula; O2 sat 100%. GASTROINTESTINAL: Positive bowel sounds. Abdomen soft, non-tender, nondistended. No masses appreciated. MUSCULOSKELETAL: Extensive lower extremity edema bilaterally. No cyanosis. No calf tenderness. NEURO/PSYCH: Awake, alert, and oriented x3. Normal speech and judgement. Procedures EGD and colonoscopy on 08/29. Medications and IVs Current Medications Medications (Trade) Dose Ordered Sig/Susie Route Start Time Stop Time Status Last Admin (Catapres) 0.2 mg BID PO 08/27/17 21:00 09/01/17 08:49 (Neurontin) 600 mg TID PO 08/28/17 09:00 09/01/17 08:49 ([place] 10-325 Mg) 1 tab Q6HR PRN PO 08/27/17 18:15 09/01/17 11:00 (Prinivil) 20 mg DAILY PO 08/28/17 09:00 09/01/17 08:49 (Procardia Xl) 90 mg DAILY PO 08/28/17 09:00 09/01/17 08:49 (NS Flush) 2 ml UNSCH PRN IV FLUSH 08/27/17 18:45 (NS Flush) 2 ml BID IV FLUSH 08/27/17 21:00 09/01/17 08:49 Ceftriaxone Sodium 1000 mg/ Sodium Chloride 100 ml @ 200 mls/hr Q24H IV 08/27/17 20:00 08/31/17 20:42 (Zithromax) 500 mg DAILY PO 08/28/17 09:00 09/01/17 08:49 (Tylenol) 650 mg Q4H PRN PO 08/27/17 18:45 (Zofran Odt) 4 mg Q6H PRN PO 08/27/17 20:00 (Albuterol Neb) 2.5 mg Q4HR NEB PRN NEB 08/27/17 18:45 09/01/17 10:10 (Tessalon) 200 mg TID PRN PO 08/27/17 18:45 09/01/17 05:07 (Apresoline) 10 mg Q6HR PRN PO 08/27/17 19:15 (Pravachol) 40 mg DAILY PO 08/28/17 09:00 09/01/17 08:49 (Protonix) 40 mg DAILY PO 08/30/17 09:00 09/01/17 08:49 (Hilary Montes MD R1) Urinary Catheter: No (Hilary Montes MD R1) Vascular Central Line Catheter: No (Hilary Montes MD R1) A/P Assessment and Plan Patient is a 57 year old male presenting to the ED with acute worsening of shortness of breath found to have developing left sided pneumonia with anemia. Discharge Planning Pending insurance authorization for home oxygen. (Hilary Montes MD R1) Problem List: (1) Sepsis ICD Codes: A41.9 - Sepsis, unspecified organism Status: Resolved Plan: Resolved as of 08/30. On admission, patient met sepsis criteria with tachycardia and tachypnea, associated with left lower lobe pneumonia as infectious source. Lactic acid 1.0. Labs: * WBC 09/01: 5.9. Microbiology: * Blood cultures 08/28: no growth to date. * Urine Legionella antigen: negative. * Urine Streptococcus pneumoniae: negative. Imaging: * Left perihilar airspace disease concerning for early infiltrates. Medications: * Azithromycin 500mg PO daily. * Ceftriaxone 1g IV q24hr. * To be discharged on Levofloxacin. (2) Left lower lobe pneumonia ICD Codes: J18.1 - Lobar pneumonia, unspecified organism Status: Acute Plan: Patient with evidence of left lower lobe pneumonia on admission. * See Plan above Patient continues to require oxygen. Based on walk test results, patient will require 4L O2 at home upon discharge. Medications: * DuoNeb q6hr. * Albuterol q4hr PRN Shortness of Breath. * Tessalon 200mg TID PRN Cough. Orders: * Respiratory CPT, Acapella, and incentive spirometry. (3) Anemia ICD Codes: D64.9 - Anemia, unspecified Status: Acute Plan: On admission, Hgb 6.3 with positive Gastroccult and Hemoccult. S/p 2 units PRBC transfused on 08/28. Repeat hemoglobin 7.7 posttransfusion, hemoglobin continues to be stable. Medications: * Protonix 40 mg PO daily. Consults: * Gastroenterology: EGD and colonoscopy completed, no acute findings. Recommended high-fiber diet, voiding nuts/seeds, and colonoscopy repeat 5 years. (4) Chest pain ICD Codes: R07.9 - Chest pain, unspecified Status: Resolved Plan: On admission, patient reports chest pain; chest pain likely secondary to cocaine use. UDS positive for cocaine and cannabinoids. Patient strongly encouraged to avoid illicit drug use. Patient denies chest pain. Labs on admission: * Troponins 0.022. * BNP 485. Studies: * EKG: Atrial fibrillation with HR of 82 at time of exam. No acute ST or T- wave changes appreciated. (Per medical team read) * ECHO 04/05: Normal left ventricular size. Wall thickness is measured at the upper limits of normal. The left ventricular systolic function is low normal with an estimated ejection fraction in the range of 50-55%. Mild mitral valve regurgitation. There is mild tricuspid valve regurgitation. There is estimated moderate pulmonary hypertension present (60 mmHg). Orders: * Telemetry. (5) Atrial fibrillation ICD Codes: I48.91 - Unspecified atrial fibrillation Status: Chronic Plan: Patient with a history of atrial fibrillation. On nifedipine and warfarin at home. Has not been taking his home warfarin, INR on arrival was 1.2. Medications: * Continue home nifedipine. * Warfarin to be restarted today. (6) Hypertension ICD Codes: I10 - Essential (primary) hypertension Status: Chronic Plan: Patient with history of hypertension. Patient reports sleep study consistent with sleep apnea; has not been evaluated for CPAP at this time. Medications: * Continue home lisinopril, nifedipine, and clonidine. * Hydralazine 10 mg PO as needed for blood pressure greater than 180/100. (7) Headache ICD Codes: R51 - Headache Status: Chronic Plan: Patient with one-year history of headache consistent with tension headache. Medications: * Continue home hydrocodone for pain. (8) Chronic low back pain ICD Codes: M54.5 - Low back pain; G89.29 - Other chronic pain Status: Chronic Plan: Patient with history of chronic low back pain. * Continue home hydrocodone and gabapentin. (9) Cocaine abuse ICD Codes: F14.10 - Cocaine abuse, uncomplicated Status: Acute Plan: Likely the source of chest pain. * Counseled on cessation of cocaine use. (10) Nutrition, metabolism, and development symptoms ICD Codes: R63.8 - Other symptoms and signs concerning food and fluid intake Status: Acute Plan: Fluids: * Oral fluids as tolerated Diet: * Heart healthy as tolerated Electrolytes: * Monitor and replete as necessary. DVT prophylaxis: * SCDs. * Patient to be restarted on home warfarin today. Heparin 5,000 units SQ q8hr to bridge. (Hilary Montes MD R1) Problem List: (1) Sepsis ICD Codes: A41.9 - Sepsis, unspecified organism Status: Resolved Plan: Resolved as of 08/30. On admission, patient met sepsis criteria with tachycardia and tachypnea, associated with left lower lobe pneumonia as infectious source. Lactic acid 1.0. Labs: * WBC 09/01: 5.9. Microbiology: * Blood cultures 08/28: no growth to date. * Urine Legionella antigen: negative. * Urine Streptococcus pneumoniae: negative. Imaging: * Left perihilar airspace disease concerning for early infiltrates. Medications: * Azithromycin 500mg PO daily. * Ceftriaxone 1g IV q24hr. * To be discharged on Levofloxacin. (2) Left lower lobe pneumonia ICD Codes: J18.1 - Lobar pneumonia, unspecified organism Status: Acute Plan: Patient with evidence of left lower lobe pneumonia on admission. * See Plan above Patient continues to require oxygen. Based on walk test results, patient will require 4L O2 at home upon discharge. Medications: * DuoNeb q6hr. * Albuterol q4hr PRN Shortness of Breath. * Tessalon 200mg TID PRN Cough. Orders: * Respiratory CPT, Acapella, and incentive spirometry. (3) Anemia ICD Codes: D64.9 - Anemia, unspecified Status: Acute Plan: On admission, Hgb 6.3 with positive Gastroccult and Hemoccult. S/p 2 units PRBC transfused on 08/28. Repeat hemoglobin 7.7 posttransfusion, hemoglobin continues to be stable. Medications: * Protonix 40 mg PO daily. Consults: * Gastroenterology: EGD and colonoscopy completed, no acute findings. Recommended high-fiber diet, voiding nuts/seeds, and colonoscopy repeat 5 years. (4) Chest pain ICD Codes: R07.9 - Chest pain, unspecified Status: Resolved Plan: On admission, patient reports chest pain; chest pain likely secondary to cocaine use. UDS positive for cocaine and cannabinoids. Patient strongly encouraged to avoid illicit drug use. Patient denies chest pain. Labs on admission: * Troponins 0.022. * BNP 485. Studies: * EKG: Atrial fibrillation with HR of 82 at time of exam. No acute ST or T- wave changes appreciated. (Per medical team read) * ECHO 04/05: Normal left ventricular size. Wall thickness is measured at the upper limits of normal. The left ventricular systolic function is low normal with an estimated ejection fraction in the range of 50-55%. Mild mitral valve regurgitation. There is mild tricuspid valve regurgitation. There is estimated moderate pulmonary hypertension present (60 mmHg). Orders: * Telemetry. (5) Atrial fibrillation ICD Codes: I48.91 - Unspecified atrial fibrillation Status: Chronic Plan: Patient with a history of atrial fibrillation. On nifedipine and warfarin at home. Has not been taking his home warfarin, INR on arrival was 1.2. Medications: * Continue home nifedipine. * Warfarin to be restarted today. (6) Hypertension ICD Codes: I10 - Essential (primary) hypertension Status: Chronic Plan: Patient with history of hypertension. Patient reports sleep study consistent with sleep apnea; has not been evaluated for CPAP at this time. Medications: * Continue home lisinopril, nifedipine, and clonidine. * Hydralazine 10 mg PO as needed for blood pressure greater than 180/100. (7) Headache ICD Codes: R51 - Headache Status: Chronic Plan: Patient with one-year history of headache consistent with tension headache. Medications: * Continue home hydrocodone for pain. (8) Chronic low back pain ICD Codes: M54.5 - Low back pain; G89.29 - Other chronic pain Status: Chronic Plan: Patient with history of chronic low back pain. * Continue home hydrocodone and gabapentin. (9) Cocaine abuse ICD Codes: F14.10 - Cocaine abuse, uncomplicated Status: Acute Plan: Likely the source of chest pain. * Counseled on cessation of cocaine use. (10) Nutrition, metabolism, and development symptoms ICD Codes: R63.8 - Other symptoms and signs concerning food and fluid intake Status: Acute Plan: Fluids: * Oral fluids as tolerated Diet: * Heart healthy as tolerated Electrolytes: * Monitor and replete as necessary. DVT prophylaxis: * SCDs. * Patient to be restarted on home warfarin today. Heparin 5,000 units SQ q8hr to bridge. * See the residents documentation for details. I saw and evaluated the patient regarding the [place] portions of this evaluation and agree with the residents findings and plans as written. Parts of this note were created using [employer] voice recognition software program. While efforts were made to correct any mistakes made by this software, some mistakes, errors, and omissions may remain in the final note that were not caught when the note was originally created. Plan of care was discussed and agreed upon with the patient as specifically documented in the above note. An opportunity to ask questions with explanation was provided. Patient voiced understanding on all information reviewed and discussed. (Giacomo Cruz MD) Problem Qualifiers (1) Sepsis: Qualified Codes: A41.9 - Sepsis, unspecified organism (2) Left lower lobe pneumonia: Qualified Codes: J18.1 - Lobar pneumonia, unspecified organism (3) Anemia: Qualified Codes: D50.0 - Iron deficiency anemia secondary to blood loss ( chronic) (4) Chest pain: Qualified Codes: R07.1 - Chest pain on breathing (5) Atrial fibrillation: Qualified Codes: I48.1 - Persistent atrial fibrillation (6) Hypertension: Qualified Codes: I10 - Essential (primary) hypertension (7) Headache: Qualified Codes: G44.229 - Chronic tension-type headache, not intractable (8) Chronic low back pain: Qualified Codes: M54.5 - Low back pain; G89.29 - Other chronic pain Hilary Montes MD R1 Sep 01, 2017 11:11 Giacomo Cruz MD Sep 03, 2017 11:25
[2017-09-01] MEDS ORDERED: HEPARIN SODIUM - SQ 10,000 UNITS/ML VIAL SQ SCH (14:00)
[2017-09-01] MEDS ORDERED: WARFARIN SOD 4 MG TAB PO SCH (16:00)
== END 2017-09-01 12:35 | disposition home or self-care (01) | DRG 871 ==
LOC: NEPC 10:54 → NEDA 17:28 → N04B 19:23
PROVIDERS: ADMIT Family Medicine; ATTEND Family Medicine
PROC: 30233N1 Transfusion of Nonautologous Red Blood Cells into Peripheral Vein, Percutaneous Approach (ICD-10-PCS; 2017-08-27)
PROC: 0DJD8ZZ Inspection of Lower Intestinal Tract, Via Natural or Artificial Opening Endoscopic (ICD-10-PCS; principal; 2017-08-29 10:30)
PROC: 0DJ08ZZ Inspection of Upper Intestinal Tract, Via Natural or Artificial Opening Endoscopic (ICD-10-PCS; 2017-08-29 10:30)
DX: A41.9 Sepsis, unspecified organism (principal); J18.9 Pneumonia, unspecified organism; I27.20 Pulmonary hypertension, unspecified; K57.31 Diverticulosis of large intestine without perforation or abscess with bleeding; Z68.43 Body mass index [BMI] 50.0-59.9, adult; J44.0 Chronic obstructive pulmonary disease with (acute) lower respiratory infection; I48.1 Persistent atrial fibrillation; I08.1 Rheumatic disorders of both mitral and tricuspid valves; D50.0 Iron deficiency anemia secondary to blood loss (chronic); I10 Essential (primary) hypertension; G47.33 Obstructive sleep apnea (adult) (pediatric); M13.0 Polyarthritis, unspecified; E78.00 Pure hypercholesterolemia, unspecified; K21.9 Gastro-esophageal reflux disease without esophagitis; E66.01 Morbid (severe) obesity due to excess calories; R06.03 Acute respiratory distress; G44.229 Chronic tension-type headache, not intractable; M54.5 Low back pain; G89.29 Other chronic pain; K44.9 Diaphragmatic hernia without obstruction or gangrene; R60.0 Localized edema; F12.90 Cannabis use, unspecified, uncomplicated; F14.10 Cocaine abuse, uncomplicated; T40.5X1A Poisoning by cocaine, accidental (unintentional), initial encounter; Z79.01 Long term (current) use of anticoagulants; Z91.19 Patient's noncompliance with other medical treatment and regimen
CPT/HCPCS: 36430; 71046; 80048; 80053; 80307; 81001; 82550; 82552; 83540; 83550; 83605; 83880; 84155; 84484; 85007; 85025; 85027; 85610; 85730; 86850; 86900; 86901; 86920; 87040; 87449; 93005; 94150; 94618; 94640; 94664; 96374; 96375; C9113; J0696; J1940; J1956; J2930; J7030; J7613; P9016